=== PATIENT | male | born 1980 | race Caucasian/White ===

== ENCOUNTER 2016-09-02 08:52 | Outpatient (RCR) | payer MEDICAID ==
[2016-09-01 19:08] LABS: BASOPHILS % (AUTO) 0 % (0-10); EOSINOPHILS # (AUTO) 0.2 10^3/uL (0.0-0.3); EOSINOPHILS % (AUTO) 2 % (0-10); LYMPHOCYTES # (AUTO) 2.5 X 10^3 (1.0-4.0); LYMPHOCYTES % (AUTO) 27 % (12-44); MEAN CORPUSCULAR HEMOGLOBIN 31 PG (25-34); MEAN CORPUSCULAR HGB CONC 34 G/DL (32-36); MEAN CORPUSCULAR VOLUME 90 FL (80-99); MEAN PLATELET VOLUME 10.1 FL (7.4-10.4); MONOCYTES # (AUTO) 1.1 X 10^3 (0.0-1.0); MONOCYTES % (AUTO) 12 % (0-12); NEUTROPHILS # (AUTO) 5.4 X 10^3 (1.8-7.8); NEUTROPHILS % (AUTO) 59 % (42-75); PLATELET COUNT 270 10^3/uL (130-400); RED BLOOD COUNT 5.07 10^6/uL (4.35-5.85); RED CELL DISTRIBUTION WIDTH 13.1 % (10.0-14.5); WHITE BLOOD COUNT 9.2 10^3/uL (4.3-11.0)
[2016-09-01 19:16] LABS: ALANINE AMINOTRANSFERASE 39 U/L (0-55); ALBUMIN 4.5 GM/DL (3.2-4.5); ANION GAP 12 MMOL/L (5-14); ASPARTATE AMINO TRANSFERASE 25 U/L (5-34); BILIRUBIN,TOTAL 0.3 MG/DL (0.1-1.0); BLOOD UREA NITROGEN 19 MG/DL (7-18); BUN/CREATININE RATIO 18; CALCIUM 9.7 MG/DL (8.5-10.1); CARBON DIOXIDE 23 MMOL/L (21-32); CHLORIDE 105 MMOL/L (98-107); CREATININE SERUM 1.08 MG/DL (0.60-1.30); GFR ESTIMATED > 60; GLUCOSE 107 MG/DL (70-105); POTASSIUM 3.7 MMOL/L (3.6-5.0); SODIUM 140 MMOL/L (135-145); TOTAL PROTEIN 7.8 GM/DL (6.4-8.2); hs C REACTIVE PROTEIN 0.26 MG/DL (0.00-0.50)
[~2016-09-02 08:52] MED LIST: ALPR1T PO; ALPR1TAB7 PO; AMOX500C2 PO; CIPR-225 PO; CIPR500T78 PO; CYCL10TA9 PO; FLT05NA16 NSEACH; FLUT10SP; HYDR-1231 PO; HYDR-3456 PO; HYDR1TAB PO; HYDR1TAB8 PO; IBUP800T26 PO; METH4TAB PO; METR500T PO; NAPR550T PO; NF-ESOM40C; ONDN4T PO; OXYC-12 PO; PRD10T PO; PRD20T PO; TRAM50TA2; TRAM50TA2 PO; [UNRECOGNIZED DRUG - OTHER]
[2016-09-02] MEDS ORDERED: CIPR-225 PO (11:10)
[2016-09-02] MEDS ORDERED: METR500T PO (11:10)
[2016-09-02] MEDS ORDERED: LACT1CAP8 PO (11:10)
[2016-09-02] MEDS ORDERED: ONDA4TAB8 PO (11:10)
[2016-09-02] MEDS ORDERED: PRED5TAB PO (11:10)
== END 2016-11-13 | disposition home or self-care (01) ==
LOC: LAB 08:52
PROVIDERS: ATTEND Nurse Practitioner Adult Health
DX: K50.90 Crohn's disease, unspecified, without complications (principal)
CPT/HCPCS: 36415; 80053; 85025; 86141; 87324; 87449

== ENCOUNTER 2016-09-02 08:55 | Emergency (ER) | payer MEDICAID ==
[~2016-09-02] VITALS: Ht 167.6 cm; Wt 80.7 kg
[2016-09-02] MEDS: NS IV 1000 ML 1,000 ML IV ONE (10:02)
[2016-09-02 10:12] LABS: BASOPHILS % (AUTO) 1 % (0-10); EOSINOPHILS # (AUTO) 0.2 10^3/uL (0.0-0.3); EOSINOPHILS % (AUTO) 2 % (0-10); LYMPHOCYTES # (AUTO) 1.7 X 10^3 (1.0-4.0); LYMPHOCYTES % (AUTO) 20 % (12-44); MEAN CORPUSCULAR HEMOGLOBIN 31 PG (25-34); MEAN CORPUSCULAR HGB CONC 34 G/DL (32-36); MEAN CORPUSCULAR VOLUME 91 FL (80-99); MEAN PLATELET VOLUME 9.6 FL (7.4-10.4); MONOCYTES % (AUTO) 11 % (0-12); NEUTROPHILS # (AUTO) 5.6 X 10^3 (1.8-7.8); NEUTROPHILS % (AUTO) 66 % (42-75); PLATELET COUNT 247 10^3/uL (130-400); RED BLOOD COUNT 4.93 10^6/uL (4.35-5.85); RED CELL DISTRIBUTION WIDTH 13.1 % (10.0-14.5); WHITE BLOOD COUNT 8.5 10^3/uL (4.3-11.0)
[2016-09-02 10:22] LABS: INR 0.9 (0.8-1.4)
[2016-09-02] MEDS: CATHETER FLUSH 10 ML SYR IV PRN (10:22)
[2016-09-02] MEDS: IOHEXOL 350 MG/ML 100 ML (OMNIPAQUE 350) VIAL IV ONE (10:22)
[2016-09-02] MEDS: NS 100 ML (IVPB) BAG IV ONE (10:22)
[2016-09-02 10:34] LABS: ALANINE AMINOTRANSFERASE 38 U/L (0-55); ALBUMIN 4.1 GM/DL (3.2-4.5); ANION GAP 6 MMOL/L (5-14); ASPARTATE AMINO TRANSFERASE 26 U/L (5-34); BILIRUBIN,TOTAL 0.5 MG/DL (0.1-1.0); BLOOD UREA NITROGEN 16 MG/DL (7-18); BUN/CREATININE RATIO 17; CALCIUM 9.4 MG/DL (8.5-10.1); CARBON DIOXIDE 26 MMOL/L (21-32); CHLORIDE 107 MMOL/L (98-107); CREATININE SERUM 0.93 MG/DL (0.60-1.30); GFR ESTIMATED > 60; GLUCOSE 97 MG/DL (70-105); MAGNESIUM 1.8 MG/DL (1.8-2.4); POTASSIUM 4.1 MMOL/L (3.6-5.0); SODIUM 139 MMOL/L (135-145); TOTAL PROTEIN 7.1 GM/DL (6.4-8.2)
--- NOTE | 2016-09-02 10:51 | Diagnostic Imaging Report ---
PROCEDURE: CT abdomen and pelvis with contrast. TECHNIQUE: Multiple contiguous axial images were obtained through the abdomen and pelvis after administration of intravenous contrast. INDICATION: Crohn disease, blood in stool. Study compared 11/11/2015. FINDINGS: There is a roughly 20 cm-length segment of circumferential thickening and congestion of the subtending vasa recta associated with the ascending and proximal transverse colon consistent with segmental colitis. No pneumatosis, no obstruction, and no free air. The appendix and cecum appeared normal. There has been resolution of previous active inflammatory changes at the terminal and distal ileum present on prior. There is no abscess or findings of a fistula. There is no perforation or obstruction. Nonobstructing stone, lower pole calyx, right kidney measures 5.5 mm. There is a probable 2 to 3-mm stone in a left lower pole calyx. No hydronephrosis. The lung bases unremarkable. Liver, gallbladder, bile ducts, spleen, adrenals, pancreas unremarkable. There is no ascites. Prostate, seminal vesicles, and urinary bladder unremarkable. IMPRESSION: 1. Proximal colitis without obstruction or perforation. 2. Improvement if not resolution of previous terminal and distal ileitis. No convincing acute small bowel pathology. 3. No findings of fistula, obstruction, abscess, or perforation. 4. Nonobstructing nephrolithiasis. Dictated by: Dictated on workstation # [id number]
[2016-09-02 11:09] LABS: BILIRUBIN,URINE NEGATIVE (NEGATIVE); KETONES,URINE NEGATIVE (NEGATIVE); LEUKOCYTE ESTERASE ,URINE NEGATIVE (NEGATIVE); NITRITE,URINE NEGATIVE (NEGATIVE); PH,URINE 6 (5-9); PROTEIN,URINE NEGATIVE (NEGATIVE); UROBILINOGEN,URINE NORMAL (NORMAL)
[2016-09-02] MEDS ORDERED: ONDA4TAB8 PO (11:10)
[2016-09-02] MEDS ORDERED: CIPR-225 PO (11:10)
[2016-09-02] MEDS ORDERED: LACT1CAP8 PO (11:10)
[2016-09-02] MEDS ORDERED: METR500T PO (11:10)
[2016-09-02] MEDS ORDERED: PRED5TAB PO (11:10)
--- NOTE | 2016-09-02 11:11 | ED GI ---
General Chief Complaint: Abdominal/GI Problems Stated Complaint: BLOOD IN STOOL Nursing Triage Note: AMB TO ED WITH PMH OF CROHNS. YESTERDAY NOTICED BLOOD IN STOOL CALLED HIS DR IN . DR ORDERED BLOOD WORK. CALLED TODAY LAB [place] WAS TOLD TO COME TO ED FOR CT SCAN. Sepsis Screen: No Definite Risk Source of Information: Patient History of Present Illness Time Seen By Provider: 09:06 Initial Comments PT ARRIVES VIA POV PT STATES HE HAS CROHN'S DISEASE STATES LAST PM, HE NOTICED "A LITTLE BIT OF BLOOD" ONE TIME --NO RECTAL PAIN HAD BM TODAY WITHOUT BLOOD NO DIARRHEA NO ABDOMINAL PAIN + NAUSEA X 1 WEEK, NO VOMITING NO FEVER NO URINARY SYMPTOMS, BUT STATES HE HAS BEEN WORKING IN THE HEAT ALL WEEK, AND DOES NOT KNOW IF HE HAS BEEN URINATING A NORMAL AMOUNT. HAS BEEN DRINKING LOTS OF FLUIDS ALL WEEK PT STATES HE HAD LAB DONE YESTERDAY--ORDERED OUTPATIENT BY GI IN , AND WAS SUPPOSED TO SUBMIT A STOOL SAMPLE WELL, BUT DID NOT DO THAT PT STATES HE CALLED GI TODAY AND WAS TOLD LAB WAS ALL NORMAL, AND WAS TOLD TO COME TO ER "TO GET A CT SCAN" ALL 5 KIDS WITH GI ILLNESS OVER THE LAST WEEK A COUPLE OF MONTHS AGO, TOOK 8 WEEKS OF PREDNISONE FOR A CROHN'S FLARE, FINISHED OVER A MONTH AGO HAS APPOINTMENT WITH GI . 09/09/16--DR. OWUSU PCP: NONE--USED TO SEE DR. HATHAWAY UNTIL HIS RESIDENTIAL Allergies and Home Medications Allergies Coded Allergies: propoxyphene napsylate (Unverified Allergy, Severe, SEIZURES, 11/14/13) Home Medications Alprazolam 1 Mg Tablet, 1 TAB PO PRN, #120 (Reported) Ciprofloxacin HCl 500 Mg Tablet, 500 MG PO BID, #20 Prescribed by: SUNNI GONZALEZ on 08/22/15 1651 Ciprofloxacin HCl 500 Mg Tablet, 500 MG PO BID, #20 Prescribed by: ANGELA NGUYỄN on 09/02/16 1110 Hydrocodone/Ibuprofen 1 Each Tablet, 1 EACH PO PRN, (Reported) Lactobacillus Acidophilus 1 Each Capsule, 2 EACH PO QID, #80 Prescribed by: ANGELA NGUYỄN on 09/02/16 1110 Metronidazole 500 Mg Tablet, 500 MG PO BID, #20 Prescribed by: SUNNI GONZALEZ on 08/22/15 1651 Metronidazole 500 Mg Tablet, 500 MG PO QID, #40 Prescribed by: ANGELA NGUYỄN on 09/02/16 1110 Ondansetron 4 Mg Tab.rapdis, 4 MG PO Q4H, #10 Prescribed by: ANGELA NGUYỄN on 09/02/16 1110 Ondansetron HCl 4 Mg Tab, 4 MG PO Q4H PRN for NAUSEA/VOMITING, #10 Prescribed by: SUNNI GONZALEZ on 08/22/15 1651 Prednisone 20 Mg Tab, 40 MG PO BID, #10 Prescribed by: SUNNI GONZALEZ on 08/22/15 1651 Prednisone 5 Mg Tablet, 5 MG PO UD, #78 12 PILLS DAY 1, THEN DECREASE BY 1 PILL A DAY UNTIL GONE Prescribed by: ANGELA NGUYỄN on 09/02/16 1110 Review of Systems Constitutional: no symptoms reported EENTM: No Symptoms Reported Respiratory: No Symptoms Reported Cardiovascular: No Symptoms Reported Gastrointestinal: See HPI, Denies Abdominal Pain, Denies Constipated, Denies Diarrhea, Nausea, Denies Poor Appetite, Denies Poor Fluid Intake, Rectal Bleeding, Denies Vomiting Genitourinary: No Symptoms Reported Musculoskeletal: no symptoms reported Skin: no symptoms reported Psychiatric/Neurological: No Symptoms Reported Endocrine: No Symptoms Reported Past Irofqwf-Venxnb-Yxhzqf Hx Patient Social History Alcohol Use: Past History (HISTORY OF ABUSE, DENIES RECENT USE, PER PT ON ) Recreational Drug Use: Yes (HX OF DRUG USE, WILL NOT STATE WHAT KINDS) Smoking Status: Current Everyday Smoker (2 PPD) Type Used: Cigarettes Recent Foreign Travel: No Contact w/Someone Who Travel: No Recent Infectious Disease Expo: No Recent Hopitalizations: No Seasonal Allergies Seasonal Allergies: No Surgeries HX Surgeries: Yes (COLONOSCOPIES) Surgeries: Vasectomy Respiratory Hx Respiratory Disorders: No Cardiovascular Hx Cardiac Disorders: No Neurological Hx Neurological Disorders: No Reproductive System Hx Reproductive Disorders: No Genitourinary Hx Genitourinary Disorders: Yes Genitourinary Disorders: Kidney Stones Gastrointestinal Hx Gastrointestinal Disorders: Yes Gastrointestinal Disorders: Crohns Disease Musculoskeletal Hx Musculoskeletal Disorders: Yes (CHRONIC NECK AND BACK PAIN ) Musculoskeletal Disorders: Chronic Back Pain Endocrine Hx Endocrine Disorders: No HEENT HX ENT Disorders: No Cancer Hx Cancer: No Psychosocial Hx Psychiatric Problems: No Integumentary HX Skin/Integumentary Disorder: No Blood Transfusions Hx Blood Disorders: No Physical Exam Vital Signs VS - Last 72 Hours, by Label 09/02/16 09/02/16 08:59 11:36 Temp 97.2 Pulse 89 69 Resp 18 18 B/P (MAP) 121/78 Pulse Ox 98 98 O2 Delivery Room Air Room Air Capillary Refill : Less Than 3 Seconds General Appearance: WD/WN, no apparent distress, other (CONSTANT MOVEMENTS OF ENTIRE BODY AND LOWER JAW) HEENT: PERRL/EOMI Neck: normal inspection Respiratory: normal breath sounds, no respiratory distress, no accessory muscle use Cardiovascular: regular rate, rhythm, no murmur Gastrointestinal: normal bowel sounds, non tender, soft, no organomegaly, no pulsatile mass Extremities: normal inspection, no pedal edema, no calf tenderness, normal capillary refill Back: no CVA tenderness Neurologic/Psychiatric: acquisitions editor II-XII nml as tested, no motor/sensory deficits, alert, normal mood/affect, oriented x 3 Skin: normal color, warm/dry, tattoos/piercings (EXTENSIVE TATTOOS) Progress/Results/Core Measures Results/Orders Lab Results Laboratory Tests Test 09/02/16 10:03 09/02/16 11:00 Range/Units White Blood Count 8.5 4.3-11.0 10^3/uL Red Blood Count 4.93 4.35-5.85 10^6/uL Hemoglobin 15.3 13.3-17.7 G/DL Hematocrit 45 40-54 % Mean Corpuscular Volume 91 80-99 FL Mean Corpuscular Hemoglobin 31 25-34 PG Mean Corpuscular Hemoglobin Concent 34 32-36 G/DL Red Cell Distribution Width 13.1 10.0-14.5 % Platelet Count 247 130-400 10^3/uL Mean Platelet Volume 9.6 7.4-10.4 FL Neutrophils (%) (Auto) 66 42-75 % Lymphocytes (%) (Auto) 20 12-44 % Monocytes (%) (Auto) 11 0-12 % Eosinophils (%) (Auto) 2 0-10 % Basophils (%) (Auto) 1 0-10 % Neutrophils # (Auto) 5.6 1.8-7.8 X 10^3 Lymphocytes # (Auto) 1.7 1.0-4.0 X 10^3 Monocytes # (Auto) 1.0 0.0-1.0 X 10^3 Eosinophils # (Auto) 0.2 0.0-0.3 10^3/uL Basophils # (Auto) 0.0 0.0-0.1 10^3/uL Prothrombin Time 12.0 L 12.2-14.7 SEC INR Comment 0.9 0.8-1.4 Activated Partial Thromboplast Time 27 24-35 SEC Sodium Level 139 135-145 MMOL/L Potassium Level 4.1 3.6-5.0 MMOL/L Chloride Level 107 98-107 MMOL/L Carbon Dioxide Level 26 21-32 MMOL/L Anion Gap 6 5-14 MMOL/L Blood Urea Nitrogen 16 7-18 MG/DL Creatinine 0.93 0.60-1.30 MG/DL Estimat Glomerular Filtration Rate > 60 BUN/Creatinine Ratio 17 Glucose Level 97 70-105 MG/DL Calcium Level 9.4 8.5-10.1 MG/DL Magnesium Level 1.8 1.8-2.4 MG/DL Total Bilirubin 0.5 0.1-1.0 MG/DL Aspartate Amino Transf (AST/SGOT) 26 5-34 U/L Alanine Aminotransferase (ALT/SGPT) 38 0-55 U/L Alkaline Phosphatase 145 H 40-136 U/L Total Protein 7.1 6.4-8.2 GM/DL Albumin 4.1 3.2-4.5 GM/DL Urine Color YELLOW Urine Clarity SLIGHTLY CLOUDY Urine pH 6 5-9 Urine Specific [place] 1.015 L 1.016-1.022 Urine Protein NEGATIVE NEGATIVE Urine Glucose (UA) NEGATIVE NEGATIVE Urine Ketones NEGATIVE NEGATIVE Urine Nitrite NEGATIVE NEGATIVE Urine Bilirubin NEGATIVE NEGATIVE Urine Urobilinogen NORMAL NORMAL MG/DL Urine Leukocyte Esterase NEGATIVE NEGATIVE Urine RBC (Auto) NEGATIVE NEGATIVE Urine RBC NONE /HPF Urine WBC 0-2 /HPF Urine Squamous Epithelial Cells RARE /HPF Urine Crystals NONE /LPF Urine Bacteria NEGATIVE /HPF Urine Casts NONE /LPF Urine Mucus SMALL H /LPF Urine Culture Indicated NO Urine Opiates Screen NEGATIVE NEGATIVE Urine Oxycodone Screen NEGATIVE NEGATIVE Urine Methadone Screen NEGATIVE NEGATIVE Urine Propoxyphene Screen NEGATIVE NEGATIVE Urine Barbiturates Screen NEGATIVE NEGATIVE Ur Tricyclic Antidepressants Screen NEGATIVE NEGATIVE Urine Phencyclidine Screen NEGATIVE NEGATIVE Urine Amphetamines Screen NEGATIVE NEGATIVE Urine Methamphetamines Screen NEGATIVE NEGATIVE Urine Benzodiazepines Screen NEGATIVE NEGATIVE Urine Cocaine Screen NEGATIVE NEGATIVE Urine Cannabinoids Screen POSITIVE H NEGATIVE My Orders Orders - ANGELA NGUYỄN DO Saline Lock/Iv-Start (09/02/16 09:09) Ct Abdomen/Pelvis W (09/02/16 09:09) Cbc With Automated Diff (09/02/16 09:09) Comprehensive Metabolic Panel (09/02/16 09:09) Drug Screen Stat (Urine) (09/02/16 09:09) Magnesium (09/02/16 09:09) Protime With Inr (09/02/16 09:09) Partial Thromboplastin Time (09/02/16 09:09) Ua Culture If Indicated (09/02/16 09:09) Saline Lock/Iv-Start (09/02/16 09:09) Ns Iv 1000 Ml (Sodium Chloride 0.9%) (09/02/16 09:09) Iohexol Injection (Omnipaque 350 Mg/Ml 1 (09/02/16 09:30) Sodium Chloride Flush (Catheter Flush Sy (09/02/16 09:30) Ns (Ivpb) (Sodium Chloride 0.9% Ivpb Bag (09/02/16 09:30) Methylprednisolone Sod Succ (Solu-Medrol (09/02/16 11:15) Medications Given in ED Vital Signs/I&O Vital Sign - Last 12Hours 09/02/16 09/02/16 08:59 11:36 Temp 97.2 Pulse 89 69 Resp 18 18 B/P (MAP) 121/78 Pulse Ox 98 98 O2 Delivery Room Air Room Air Blood Pressure Mean: 92 Progress Note : Progress Note UNEVENTFUL ER STAY NO SYMPTOMS DURING ER STAY Diagnostic Imaging Comments CT ABDOMEN/PELVIS-- 20 CM SEGMENT OF ASCENDING AND TRANSVERSE COLON CIRCUMFERENTIAL INFLAMMATION/COLITIS--PER RADIOLOGIST REPORT @ 1055 Reviewed: Reviewed by Me Departure Impression Impression: Primary Impression: Acute hemorrhagic colitis Additional Impression: Crohn's disease of colon with rectal bleeding Disposition: HOME, SELF-CARE Condition: Stable Departure-Patient Inst. Referrals: NO,LOCAL PHYSICIAN (PCP/Family) Primary Care Physician Patient Instructions: Crohn's Disease (DC), Microscopic Colitis Add. Discharge Instructions: CLEAR LIQUIDS--WATER, BROTH, JELLO, GATORADE NO FOOD UNTIL YOU ARE CLEARED BY YOUR DR CONTINUE YOUR REGULAR MEDICATIONS PRESCRIBED KEEP YOUR APPOINTMENT WITH YOUR CIRCUIT BREAKER MECHANIC NEXT WEEK ESTABLISH WITH LOCAL PRIMARY CARE DR SOON POSSIBLE--LIST PROVIDED RETURN TO ER IF SYMPTOMS WORSEN All discharge instructions reviewed with patient and/or family. Voiced understanding. Scripts Ondansetron (Zofran Odt) 4 Mg Tab.rapdis 4 MG PO Q4H for Nausea/Vomiting, #10 TAB Prov: ANGELA NGUYỄN DO 09/02/16 Prednisone (Prednisone) 5 Mg Tablet 5 MG PO UD, #78 TAB 12 PILLS DAY 1, THEN DECREASE BY 1 PILL A DAY UNTIL GONE Prov: ANGELA NGUYỄN DO 09/02/16 Metronidazole (Flagyl) 500 Mg Tablet 500 MG PO QID for FOR INFECTION, #40 TAB Prov: ANGELA NGUYỄN DO 09/02/16 Ciprofloxacin HCl (Cipro) 500 Mg Tablet 500 MG PO BID, #20 TAB Prov: ANGELA NGUYỄN DO 09/02/16 Lactobacillus Acidophilus (Acidophilus) 1 Each Capsule 2 EACH PO QID, #80 CAP Prov: ANGELA NGUYỄN DO 09/02/16 ANGELA NGUYỄN DO Sep 02, 2016 11:10
[2016-09-02 11:18] LABS: SQUAMOUS EPITHELIAL CELL,UR RARE /HPF; WBC,URINE 0-2 /HPF
[2016-09-02] MEDS: methylPREDNISolone 125 MG (Solu-MEDROL) VIAL IVP ONE (11:34)
[2016-09-02 11:36] VITALS: BP 124/73
== END 2016-09-02 11:36 | disposition home or self-care (01) ==
LOC: EDUNIT# 08:55 → ER 08:58
DX: K50.111 Crohn's disease of large intestine with rectal bleeding (principal); G89.29 Other chronic pain; M54.9 Dorsalgia, unspecified; F17.210 Nicotine dependence, cigarettes, uncomplicated; Z98.52 Vasectomy status
CPT/HCPCS: 36415; 74177; 80053; 80306; 81000; 83735; 85025; 85610; 85730; 99282

== ENCOUNTER 2017-02-09 09:38 | Emergency (ER) | payer MEDICAID ==
[~2017-02-09] VITALS: Ht 170.2 cm; Wt 88.5 kg
[~2017-02-09 09:38] MED LIST changes: +LACT1CAP8 PO; +ONDA4TAB8 PO; +PRED5TAB PO
--- OUTSIDE RECORDS SUMMARY | 2017-02-09 09:45 | XMS REPORT | Continuity of Care Document ---
Author Author [employer] Organization [place] Address Unknown Phone Unavailable Care Team Providers Care Membership Assistant Name Role Phone [employer] Unavailable Unavailable Problems Problem Status Onset Date Classification Date Reported Comments Source Crohn's disease (disorder) 11/19/2016 Diagnosis 2016 [facility], [facility], [facility] Seborrhea (disorder) 2016 Diagnosis 11/23/2016 [facility] Tobacco user (finding) 11/19 Diagnosis 11/23/2016 [facility] Kidney stone (disorder) Diagnosis 09/12/2016 [facility] Gastroesophageal reflux disease (disorder) 05/17/2016 Diagnosis 05/21/2016 [facility] Chronic back pain (disorder) 04/13/2016 Diagnosis 2016 [facility] Crohn's disease (disorder) 01/14/2016 Diagnosis 2015 [facility], [facility] Low back pain (disorder) Diagnosis 11/02/2015 [facility] Polyp of colon (disorder) Diagnosis 10/04/2015 [facility] Adenomatous polyp of colon (disorder) 09/15/2015 Diagnosis 09/19/2015 [facility] Regional enteritis of large intestine 10/23/2014 Diagnosis 10/27/2014 [facility] Other dyschromia 10/23/2014 Diagnosis 10/27/2014 [facility] Diarrhea 10/23/2014 Diagnosis 10/27/2014 [facility] Regional enteritis of unspecified site 10/04/2014 Diagnosis 10/08/2014 [facility], [facility] Abdominal pain, unspecified site 09/24/2014 Diagnosis [facility] No data available for this section Problem 07/12/2016 [facility], [facility] Tobacco user (finding) Active Problem 11/23/2016 Updated by Discern Expert based on Social History Documentation Added by Discern Expert based on Social History Documentation [facility] Medications Medication Details Route Status Patient Instructions Ordering Provider Order Date Source No Known Medications No known medications Active [facility] Allergies, Adverse Reactions, Alerts Substance Category Reaction Severity Reaction type Status Date Reported Comments Source Acetaminophen / Propoxyphene Assertion Seizure Drug allergy [facility], [facility], [facility] Immunizations Immunization Date Given Site Status Last Updated Comments Source No data available for this section No data available for this section [facility], [facility], [facility]. Results Vital Signs Encounters Location Location Details Encounter Type Encounter Number Reason For Visit Attending Provider ADM Date DC Date Status Source [facility] [id number] [facility] 09/24/2014 09/25/2014 [facility] CD:[id number] Outpatient [id number] [facility] 10/04/2014 10/04/2014 [facility] CD:[id number] Outpatient [id number] [facility] 10/23/201410/2014 Active [facility] [id number] [facility] 10/23/20142014 [facility] CD:[id number] Outpatient [id number] [facility] 10/28/2014 Active [facility] CD:[id number] Outpatient [id number] [facility] 11/08/2014 Active [facility] CD:[id number] Outpatient [id number] [facility] 11/11/2014 Active [facility], [facility] CD:[id number] Outpatient [id number] [facility]201401[id number] Goss 11/26/2014 11/26/2014 Active [facility], [facility] Cancel/No Show [id number] [facility] 12/10/2014 12/10/2014 [facility] CD:[id number] Clinic ( Outpatient) [id number] [facility] 12/12/2014 Active [facility] CD:[id number] Clinic ( Outpatient) [id number] [facility] 12/25/2014 Active [facility], [facility] Preadmit [id number] Rolando Ringmiky 01/16/2015 04/17/2015 [facility], [facility] [id number] [facility] 09/15/20152015 [facility] CD:[id number] [id number]30[facility]2015 Active [facility], [facility] [id number] [facility]/30/201502/2015 [facility] [id number] [facility] 09/30/2015 [facility] Cancel/No Show [id number] [facility] 10/14/2015 10/10/2015 [facility] CD:[id number] [id number] [facility] 10/29/2015 10/29/2015 Active [facility], [facility] [id number] [facility] 10/29/2015 [facility] CD:[id number] Clinic ( Outpatient) [id number] [facility] 01/02/2016 Active [facility] CD:[id number] [facility] [id number] [facility] 01/14/2016 01/14/2016 Active [facility], [facility] [id number] [facility] 01/14/201602/2015 [facility] CD:[id number] Clinic ( Outpatient) [id number] Richard Chen 03/19/2016 Active [facility] CD:[id number] Clinic ( Outpatient) [id number] Richard Chen 04/13/2016 04/13/2016 Active [facility] [id number] [facility] 05/17/2016 05/18/2016 [facility] Outpatient [id number] [facility] 05/17/2016 05/18/2016 [facility], [facility] CD:[id number] Outpatient [id number] [facility] 05/27/2016 05/27/2016 Active [facility], [facility] [id number] Richard Chen 07/13/2016 07/14/2016 [facility] CD:[id number] Clinic ( Outpatient) [id number] [facility] 07/14/2016 Active [facility] [id number] [facility] 08/27/2016 07/08/2016 [facility] [id number] [facility] 09/08/2016 09/09/2016 [facility] Outpatient [id number] [facility] 09/08/2016 09/09/2016 [facility], [facility] [id number] Richard Chen 11/19/2016 11/20/2016 [facility] Cancel/No Show [id number] [facility] 01/12/2017 01/12/2017 [facility] Procedures Procedure Code Date Perfomer Comments Source Colonoscopy, flexible; diagnostic, including collection of specimen(s) by brushing or washing, when performed (separate procedure) 05/27/2016 [facility] Esophagogastroduodenoscopy, flexible, transoral; diagnostic, including collection of specimen(s) by brushing or washing, when performed (separate procedure) 05/27/2016 [facility] Colonoscopy, flexible; diagnostic, including collection of specimen(s) by brushing or washing, when performed (separate procedure) [id number] 09/30/2015 [facility] Colonoscopy, flexible; diagnostic, including collection of specimen(s) by brushing or washing, when performed (separate procedure) [id number] 10/04/2014 [facility] Esophagogastroduodenoscopy, flexible, transoral; diagnostic, including collection of specimen(s) by brushing or washing, when performed (separate procedure) [id number] 10/04/2014 [facility]. No data available for this section [facility] EGD/Colonoscopy<sup>1</sup> As a kid [facility] Colonoscopy, flexible; diagnostic, including collection of specimen(s) by brushing or washing, when performed (separate procedure) [id number] [facility] Plan of Care Social History Assessment and Plan Family History Value Date Source Advance Directives Order Name Results Value Date Source
--- OUTSIDE RECORDS SUMMARY | 2017-02-09 09:51 | XMS REPORT ---
Author Author [facility] Organization [facility] Address Unknown Phone Unavailable Care Team Providers Care Regional Clinical Research Associate Name Role Phone No Family Physician, . PCP Unavailable Encounter [facility]NBR [id number] Date(s): 09/08/16 - 09/08/16 [facility] [address] [place] [address] Attending Physician: Yue Martin MD Admitting Physician: Yue Martin MD Referring Physician: No Family Physician, . Vital Signs No data available for this section Problem List No data available for this section Allergies, Adverse Reactions, Alerts Substance Reaction Severity Status Darvocet A500 Seizure Active Medications No data available for this section Results No data available for this section Immunizations No data available for this section Procedures No data available for this section Social History No data available for this section Assessment and Plan No data available for this section
--- OUTSIDE RECORDS SUMMARY | 2017-02-09 09:52 | XMS REPORT ---
Author Author [facility] Organization [facility] Address Unknown Phone Unavailable Care Team Providers Care [place] Man Name Role Phone Richard Chen PCP Encounter [id number] Date(s): 11/19/16 - 11/19/[address] [address]- Attending Physician: Richard Chen MD Vital Signs No data available for this section Problem List Condition Effective Dates Status Health Status Informant Tobacco Active patient user(Confirmed)1, 2 1Updated by Discern Expert based on Social History Documentation 2Added by Discern Expert based on Social History Documentation Diagnosis Diagnosis Type Effective Dates Health Status Clinical Service Informant Crohn's disease Discharge 11/19/16 Diagnosis Seborrhea Discharge 11/19/16 Diagnosis Tobacco user Discharge 11/19/16 Diagnosis Allergies, Adverse Reactions, Alerts Substance Reaction Severity Status Darvocet A500 Seizure Active Medications No Known Medications Results No data available for this section Immunizations No data available for this section Procedures No data available for this section Social History No data available for this section Assessment and Plan No data available for this section
--- OUTSIDE RECORDS SUMMARY | 2017-02-09 09:52 | XMS REPORT ---
Author Author [facility] Organization [facility] Address Unknown Phone Unavailable Care Team Providers Care Paraprofessional Education Assistant Name Role Phone No Family Physician, . PCP Unavailable Encounter [id number] Date(s): 09/08/16 - 09/08/16 [facility] [address] [place] [id number] Attending Physician: Yue Martin MD Vital Signs No data available for this section Problem List Diagnosis Diagnosis Type Effective Dates Health Status Clinical Service Informant Crohn's disease Discharge 09/08/16 Diagnosis Kidney stone Discharge 09/08/16 Diagnosis Allergies, Adverse Reactions, Alerts Substance Reaction Severity Status Darvocet A500 Seizure Active Medications No Known Medications Results No data available for this section Immunizations No data available for this section Procedures No data available for this section Social History No data available for this section Assessment and Plan No data available for this section
--- OUTSIDE RECORDS SUMMARY | 2017-02-09 09:53 | XMS REPORT ---
Author Author [facility] Organization [facility] Address Unknown Phone Unavailable Care Team Providers Care Forgeman Helper Name Role Phone Richard Chen PCP No Family Physician, . PCP Unavailable UNKNOWN, DOCTOR PCP Unavailable No Family Physician, . PCP Unavailable UNKNOWN, DOCTOR PCP Unavailable No Family Physician, . PCP Unavailable Non-Staff, Physician PCP Unavailable Encounter [id number] Date(s): 01/12/17 - 01/12/17 [facility] [id number] [place] [phone] Attending Physician: Yue Martin MD Vital Signs No data available for this section Problem List Condition Effective Dates Status Health Status Informant Tobacco Active patient user(Confirmed)1, 2 1Updated by Discern Expert based on Social History Documentation 2Added by Discern Expert based on Social History Documentation Allergies, Adverse Reactions, Alerts Substance Reaction Severity [...]
--- OUTSIDE RECORDS SUMMARY | 2017-02-09 09:54 | XMS REPORT | Continuity of Care Document ---
Author Author [facility] Organization [facility] Address Unknown Phone Unavailable Allergies Active Description Code Type Severity Reaction Onset Reported/Identified Relationship to Patient Clinical Status Yes Darvocet-N 100 Drug Allergy 08/25/2009 Yes Darvocet-N 100 Drug Allergy N /A N/A 08/25/2009 Yes propoxyphene napsylate [id number] Drug Allergy Severe SEIZURES 2010 Medications There is no data. Problems Date Dx Coded Attending Type Code Diagnosis Diagnosed By 11/10/2007 709.9 DERMATITIS OTHER SKIN DISORDERS 11/10/2007 ROBEL BOWLING APRN 709.9 DERMATITIS OTHER SKIN DISORDERS 11/10/2007 HALEY SYKES DO 709.9 DERMATITIS OTHER SKIN DISORDERS 11/10/2007 SHAKA MUNGUIA APRN 709.9 DERMATITIS OTHER SKIN DISORDERS 10/03/2008 V61.10 RL RELATION COUNS 10/03/2008 ROBEL BOWLING APRN V61.10 RL RELATION COUNS 10/03/2008 HALEY SYKES DO V61.10 RL RELATION COUNS 10/03/2008 SHAKA MUNGUIA APRN V61.10 RL RELATION COUNS 01/29/2009 Ot 592.0 CALCULUS OF KIDNEY 02/19/2009 461.9 SINUSITIS ACUTE 02/19/2009 ROBEL BOWLING APRN 461.9 SINUSITIS ACUTE 02/19/2009 HALEY SYKES DO 461.9 SINUSITIS ACUTE 02/19/2009 SHAKA MUNGUIA APRN 461.9 SINUSITIS ACUTE 03/13/2009 473.0 CHRONIC SINUSITIS, MAXILLARY 03/13/2009 555.9 REGIONAL ENTERITIS OF UNSPECIFIED SITE 03/13/2009 584.9 ACUTE KIDNEY FAILURE, UNSPECIFIED 03/13/2009 789.06 ABDOMINAL PAIN, EPIGASTRIC 03/13/2009 ROBEL BOWLING APRN 473.0 CHRONIC SINUSITIS, MAXILLARY 03/13/2009 ROBEL BOWLING APRN 555.9 REGIONAL ENTERITIS OF UNSPECIFIED SITE 03/13/2009 ROBEL BOWLING APRN 584.9 ACUTE KIDNEY FAILURE, UNSPECIFIED 03/13/2009 ROBEL BOWLING APRN 789.06 ABDOMINAL PAIN, EPIGASTRIC 03/13/2009 SYKES DO, HALEY K 473.0 CHRONIC SINUSITIS, MAXILLARY 03/13/2009 SYKES DO, HALEY K 555.9 REGIONAL ENTERITIS OF UNSPECIFIED SITE 03/13/2009 SYKES DO, HALEY K 584.9 ACUTE KIDNEY FAILURE, UNSPECIFIED 03/13/2009 SYKES DO, HALEY K 789.06 ABDOMINAL PAIN, EPIGASTRIC 03/13/2009 SHAKA MUNGUIA APRN S 473.0 CHRONIC SINUSITIS, MAXILLARY 03/13/2009 ADRIENNE MUNGUIA APRNA S 555.9 REGIONAL ENTERITIS OF UNSPECIFIED SITE 03/13/2009 SOHAM MUNGUIA APRNNDA S 584.9 ACUTE KIDNEY FAILURE, UNSPECIFIED 03/13/2009 ADRIENNE MUNGUIA APRNA S 789.06 ABDOMINAL PAIN, EPIGASTRIC 08/04/2009 Ot 592.0 08/04/2009 Ot V25.8 08/25/2009 789.00 ABDOMINAL PAIN, UNSPECIFIED SITE 08/25/2009 ROBEL BOWLING APRN 789.00 ABDOMINAL PAIN, UNSPECIFIED SITE 08/25/2009 HALEY SYKES DO K 789.00 ABDOMINAL PAIN, UNSPECIFIED SITE 08/25/2009 SHAKA MUNGUIA APRN S 789.00 ABDOMINAL PAIN, UNSPECIFIED SITE 10/08/2010 Ot 592.1 CALCULUS OF URETER 10/08/2010 Ot 789.09 ABDOMINAL PAIN, OTHER SPECIFIED SITE 10/13/2010 592.0 CALCULUS OF KIDNEY 10/13/2010 ROBEL BOWLING APRN 592.0 CALCULUS OF KIDNEY 10/13/2010 HALEY SYKES DO K 592.0 CALCULUS OF KIDNEY 10/13/2010 SHAKA MUNGUIA APRN S 592.0 CALCULUS OF KIDNEY 07/21/2011 Ot 555.9 REGIONAL ENTERITIS NOS 07/21/2011 Ot 789.00 ABDOMINAL PAIN, UNSPECIFIED SITE 08/31/2011 Ot 733.6 TIETZE'S DISEASE 08/31/2011 Ot 786.50 CHEST PAIN NOS 08/31/2011 Ot 786.52 PAINFUL RESPIRATION 10/22/2011 Ot 461.9 ACUTE SINUSITIS NOS 10/22/2011 Ot 478.19 OTHER DISEASE OF NASAL CAVITY AND SINUSE 11/15/2011 Ot 555.9 REGIONAL ENTERITIS NOS 11/15/2011 Ot 560.9 INTESTINAL OBSTRUCT NOS 11/15/2011 Ot 569.82 ULCERATION OF INTESTINE 03/03/2012 Ot 555.9 REGIONAL ENTERITIS NOS 03/03/2012 Ot V04.81 ND FOR PROPHYLACTIC VACCIN AND INOCULATI 03/03/2012 Ot V15.81 HX OF PAST NONCOMPLIANCE 05/23/2012 309.24 AD ADJ D/O W ANXIETY 05/23/2012 ROBEL BOWLING APRN 309.24 AD ADJ D/O W ANXIETY 05/23/2012 HALEY SYKES DO 309.24 AD ADJ D/O W ANXIETY 05/23/2012 SHAKA MUNGUIA APRN 309.24 AD ADJ D/O W ANXIETY 03/17/2013 ROBEL BOWLING APRN 466.0 BRONCHITIS, ACUTE 03/17/2013 HALEY SYKES DO 466.0 BRONCHITIS, ACUTE 03/17/2013 SHAKA MUNGUIA APRN 466.0 BRONCHITIS, ACUTE 04/23/2013 Ot 354.0 CARPAL TUNNEL SYNDROME 04/23/2013 Ot 723.1 CERVICALGIA 04/23/2013 Ot 724.8 OTHER BACK SYMPTOMS 04/23/2013 Ot 848.9 SPRAIN NOS 04/23/2013 Ot E000.8 OTHER EXTERNAL CAUSE STATUS 04/23/2013 Ot E928.9 ACCIDENT NOS 04/25/2013 Ot 787.91 DIARRHEA 04/25/2013 Ot 789.09 ABDOMINAL PAIN, OTHER SPECIFIED SITE 10/20/2013 Ot 305.1 TOBACCO USE DISORDER 10/20/2013 Ot 555.9 REGIONAL ENTERITIS NOS 10/20/2013 Ot V15.81 HX OF PAST NONCOMPLIANCE 02/19/2014 Ot 592.0 02/19/2014 Ot 592.0 02/19/2014 Ot 592.0 02/19/2014 Ot V72.83 02/19/2014 Ot V74.8 02/19/2014 Ot 592.0 02/19/2014 Ot 592.0 02/19/2014 Ot V25.8 02/19/2014 Ot 555.9 02/19/2014 Ot V72.84 02/19/2014 Ot 560.9 02/19/2014 WADE ANTON, STONE Simmons Ot 555.9 REGIONAL ENTERITIS NOS 02/19/2014 Ot 592.0 02/19/2014 Ot 592.0 02/19/2014 Ot 592.0 02/19/2014 Ot V72.83 02/19/2014 Ot V74.8 02/19/2014 Ot 592.0 02/19/2014 Ot 592.0 02/19/2014 Ot V25.8 02/19/2014 Ot 555.9 02/19/2014 Ot V72.84 02/19/2014 Ot 560.9 05/18/2014 SHAKA MUNGUIA APRN 599.70 HEMATURIA 05/30/2014 Ot 592.0 05/30/2014 Ot 592.0 05/30/2014 Ot 592.0 05/30/2014 Ot V72.83 05/30/2014 Ot V74.8 05/30/2014 Ot 592.0 05/30/2014 Ot 592.0 05/30/2014 Ot V25.8 05/30/2014 Ot 555.9 05/30/2014 Ot V72.84 05/30/2014 Ot 560.9 06/04/2014 SHAKA MUNGUIA Ot 569.9 06/04/2014 SHAKA MUNGUIA Ot 592.0 06/04/2014 SHAKA MUNGUIA Ot 789.00 06/04/2014 Ot 592.0 06/04/2014 Ot 592.0 06/04/2014 Ot 592.0 06/04/2014 Ot V72.83 06/04/2014 Ot V74.8 06/04/2014 Ot 592.0 06/04/2014 Ot 592.0 06/04/2014 Ot V25.8 06/04/2014 Ot 555.9 06/04/2014 Ot V72.84 06/04/2014 Ot 560.9 06/04/2014 SHAKA MUNGUIA Ot 569.9 06/04/2014 SHAKA MUNGUIA Ot 592.0 06/04/2014 SHAKA MUNGUIA Ot 789.00 06/19/2014 SHAKA MUNGUIA Ot 569.9 06/19/2014 SHAKA 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 SHIPPING SUPERVISOR Ot 592.0 06/19/2014 SHAKA MUGNUIA WAREHOUSE SHIPPING SUPERVISOR Ot 789.00 02/21/2015 Ot 555.9 02/21/2015 Ot V72.84 02/21/2015 Ot 560.9 02/21/2015 SHAKA 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 SHIPPING SUPERVISOR Ot 569.9 02/21/2015 SHAKA MUNGUIAP Ot 592.0 02/21/2015 SHAKA 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 SHIPPING SUPERVISOR Ot 789.00 03/07/2015 Ot 555.9 03/07/2015 Ot V72.84 03/07/2015 Ot 560.9 03/07/2015 SHAKA 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 SHIPPING SUPERVISOR Ot 569.9 03/07/2015 SHAKA MUNGUIAP Ot 592.0 03/07/2015 SHAKA MUNGUIAP Ot 789.00 03/07/2015 MAG ANTON, BRENTON J Ot M54.2 03/07/2015 MAG ANTON, BRENTON J Ot R51 03/12/2015 MAG ANTON, BRENTON J Ot M54.2 03/12/2015 MAG ANTON, BRENTON J Ot R51 03/18/2015 MAG ANTON, BRENTON J Ot M54.2 03/18/2015 MAG ANTON, BRENTON J Ot M54.5 03/21/2015 MAG ANTON, BRENTON Teresa Ot M54.2 CERVICALGIA 03/21/2015 MAG ANTON, BRENTON Teresa Ot M54.5 LOW BACK PAIN 04/01/2015 MAG ANTON, BRENTON J Ot M54.2 04/01/2015 MAG ANTON, BRENTON J Ot R51 07/03/2015 MAG ANTON, BRENTON J Ot M54.2 CERVICALGIA 07/03/2015 MAG ANTON, BRENTON J Ot R51 HEADACHE 08/22/2015 Ot 555.9 REGIONAL ENTERITIS NOS 08/22/2015 Ot V72.84 EXAM PRE- OPERATIVE NOS 08/22/2015 Ot 560.9 INTESTINAL OBSTRUCT NOS 08/22/2015 SHAKA 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 SHIPPING SUPERVISOR Ot 569.9 INTESTINAL DISORDER NOS 08/22/2015 SHAKA MUNGUIAP Ot 592.0 CALCULUS OF KIDNEY 08/22/2015 NILDA, SHAKA W[employer]HOUSE SHIPPING SUPERVISOR Ot 789.00 ABDOMINAL PAIN, UNSPECIFIED SITE 08/22/2015 MAG ANTON, BRENTON Teresa Ot M54.2 CERVICALGIA 08/22/2015 MAG ANTON, BRENTON Teresa Ot R51 HEADACHE 08/22/2015 Ot 555.9 REGIONAL ENTERITIS NOS 08/22/2015 Ot V72.84 EXAM PRE- OPERATIVE NOS 08/22/2015 Ot 560.9 INTESTINAL OBSTRUCT NOS 08/22/2015 NILDA SHAKA W[employer]HOUSE SHIPPING SUPERVISOR Ot 569.9 INTESTINAL DISORDER NOS 08/22/2015 SHAKA 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 SHIPPING SUPERVISOR Ot 592.0 CALCULUS OF KIDNEY 08/22/2015 NILDA SHAKA W[employer]HOUSE SHIPPING SUPERVISOR Ot 789.00 ABDOMINAL PAIN, UNSPECIFIED SITE 08/22/2015 MAG ANTON, BRENTON Teresa Ot M54.2 CERVICALGIA 08/22/2015 MAG ANTON, BRENTON Teresa Ot R51 HEADACHE 08/22/2015 BESSIE ANTON, SUNNI T Ot F17.210 NICOTINE DEPENDENCE, CIGARETTES, UNCOMPL 08/22/2015 BESSIE ANTON, SUNNI T Ot K50.90 CROHN'S DISEASE, UNSPECIFIED, WITHOUT CO 08/22/2015 SUNNI LA MD Ot R10.30 LOWER ABDOMINAL PAIN, UNSPECIFIED 08/22/2015 BESSIE ANTON, SUNNI Mike Ot R11.0 NAUSEA 08/22/2015 BESSIE ANTON, SUNNI T Ot R19.7 DIARRHEA, UNSPECIFIED 08/28/2015 BESSIE ANTON, SUNNI T Ot F17.210 NICOTINE DEPENDENCE, CIGARETTES, UNCOMPL 08/28/2015 BESSIE ANTON, SUNNI T Ot K50.90 CROHN'S DISEASE, UNSPECIFIED, WITHOUT CO 08/28/2015 BESSIE ANTON, SUNNI T Ot R10.30 LOWER ABDOMINAL PAIN, UNSPECIFIED 08/28/2015 SUNNI LA MD Ot R11.0 NAUSEA 08/28/2015 SUNNI LA MD T Ot R19.7 DIARRHEA, UNSPECIFIED 11/11/2015 VIVIANA GLOVER CREATIVE RECRUITER Ot F17.210 NICOTINE DEPENDENCE, CIGARETTES, UNCOMPL 11/11/2015 VIVIANA GLOVER CREATIVE RECRUITER Ot 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 11/11/2015 VIVIANA GLOVER CREATIVE RECRUITER Ot R10.30 LOWER ABDOMINAL PAIN, UNSPECIFIED 11/11/2015 VIVIANA GLOVER CREATIVE RECRUITER Ot Z79.899 OTHER RESIDENTIAL SALES (CURRENT) DRUG THERAPY 11/12/2015 VIVIANA GLOVER CREATIVE RECRUITER Ot F17.210 NICOTINE DEPENDENCE, CIGARETTES, UNCOMPL 11/12/2015 VIVIANA GLOVER CREATIVE RECRUITER Ot 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 11/12/2015 VIVIANA GLOVER CREATIVE RECRUITER Ot R10.30 LOWER ABDOMINAL PAIN, UNSPECIFIED 11/12/2015 VIVIANA GLOVER CREATIVE RECRUITER Ot Z79.899 OTHER RETIREMENT (CURRENT) DRUG THERAPY 11/18/2015 VIVIANA GLOVER CREATIVE RECRUITER Ot F17.210 NICOTINE DEPENDENCE, CIGARETTES, UNCOMPL 11/18/2015 VIVIANA GLOVER CREATIVE RECRUITER Ot 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 11/18/2015 VIVIANA GLOVER CREATIVE RECRUITER Ot R10.30 LOWER ABDOMINAL PAIN, UNSPECIFIED 11/18/2015 VIVIANA GLOVER CREATIVE RECRUITER Ot Z79.899 OTHER RESIDENTIAL SALES (CURRENT) DRUG THERAPY 01/22/2016 Ot 555.9 REGIONAL ENTERITIS NOS 01/22/2016 Ot V72.84 EXAM PRE- OPERATIVE NOS 01/22/2016 Ot 560.9 INTESTINAL OBSTRUCT NOS 01/22/2016 SHAKA MUNGUIAP Ot 569.9 INTESTINAL DISORDER NOS 01/22/2016 SHAKA MUNGUIAP Ot 592.0 CALCULUS OF KIDNEY 01/22/2016 SHAKA MUNGUIAP Ot 789.00 ABDOMINAL PAIN, UNSPECIFIED SITE 01/22/2016 MAG ANTON, BRENTON Teresa Ot M54.2 CERVICALGIA 01/22/2016 BRENTON HATHAWAY MD Ot R51 HEADACHE 02/10/[address] DO Ot M54.5 LOW BACK PAIN 09/01/2016 Ot 555.9 REGIONAL ENTERITIS NOS 09/01/2016 Ot V72.84 EXAM PRE- OPERATIVE NOS 09/01/2016 Ot 560.9 INTESTINAL OBSTRUCT NOS 09/01/2016 SHAKA MUNUGIAP Ot 569.9 INTESTINAL DISORDER NOS 09/01/2016 SHAKA MUNGUIA Ot 592.0 CALCULUS OF KIDNEY 09/01/2016 NILDA, SHAKA W[employer]HOUSE SHIPPING SUPERVISOR Ot 789.00 ABDOMINAL PAIN, UNSPECIFIED SITE 09/01/2016 MAG ANTON, BRENTON Teresa Ot M54.2 CERVICALGIA 09/01/2016 MAG ANTON, BRENTON Teresa Ot R51 HEADACHE 09/01/2016 YENIFER JANSEN DYLON Jamison Ot M54.5 LOW BACK PAIN 09/02/2016 Ot 555.9 REGIONAL ENTERITIS NOS 09/02/2016 Ot V72.84 EXAM PRE- OPERATIVE NOS 09/02/2016 Ot 560.9 INTESTINAL OBSTRUCT NOS 09/02/2016 SHAKA 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 SHIPPING SUPERVISOR Ot 569.9 INTESTINAL DISORDER NOS 09/02/2016 SHAKA 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 SHIPPING SUPERVISOR Ot 592.0 CALCULUS OF KIDNEY 09/02/2016 SHAKA 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 SHIPPING SUPERVISOR Ot 789.00 ABDOMINAL PAIN, UNSPECIFIED SITE 09/02/2016 MAG ANTON, BRENTON Teresa Ot M54.2 CERVICALGIA 09/02/2016 MAG ANTON, BRENTON Teresa Ot R51 HEADACHE 09/02/2016 YENIFER DO DYLON Jamison Ot M54.5 LOW BACK PAIN 09/02/2016 DELMA DO ANGELA K Ot F17.210 NICOTINE DEPENDENCE, CIGARETTES, UNCOMPL 09/02/2016 DELMA DO, ANGELA K Ot G89.29 OTHER CHRONIC PAIN 09/02/2016 DELMA DO, ANGELA K Ot 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 09/02/2016 DELMA DO, ANGELA K Ot K92.1 MELENA 09/02/2016 DELMA DO ANGELA K Ot M54.9 DORSALGIA, UNSPECIFIED 09/02/2016 DELMA JANSEN ANGELA K Ot Z98.52 VASECTOMY STATUS 09/02/2016 RONY CANTU CREATIVE RECRUITER Ot K50.90 CROHN'S DISEASE, UNSPECIFIED, WITHOUT CO 09/03/2016 RONY CANTU CREATIVE RECRUITER Ot K50.90 CROHN'S DISEASE, UNSPECIFIED, WITHOUT CO 09/03/2016 RONY CANTU CREATIVE RECRUITER Ot K50.90 CROHN'S DISEASE, UNSPECIFIED, WITHOUT CO 09/06/2016 DELMA DO, ANGELA K Ot F17.210 NICOTINE DEPENDENCE, CIGARETTES, UNCOMPL 09/06/2016 DELMA DO, ANGELA K Ot G89.29 OTHER CHRONIC PAIN 09/06/2016 DELMA DO, ANGELA K Ot 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 09/06/2016 ANGELA NGUYỄN DO Ot K92.1 MELENA 09/06/2016 ANGELA NGUYỄN DO Ot M54.9 DORSALGIA, UNSPECIFIED 09/06/2016 ANGELA NGUYỄN DO Ot Z98.52 VASECTOMY STATUS 11/13/2016 RONY CANTU APRN Ot K50.90 CROHN'S DISEASE, UNSPECIFIED, WITHOUT CO Procedures Code Description [place] [address] [facility] DIAGNOSTIC EVALUATION 05/25/2012 23775 UA W/ CULTURE IF INDICATED 05/18/[address] ABDOMEN & PELVIS W/O CONTRAST 05/30/2014 Results Test Result Range Complete blood count (CBC) with automated white blood cell (WBC) differential - 11/11/15 19:05 Blood leukocytes automated count (number/volume) 13.3 10*3/uL 4.3-11.0 Blood erythrocytes automated count (number/volume) 4.68 10*6/uL 4.35-5.85 Venous blood hemoglobin measurement (mass/volume) 14.7 g/dL 13.3-17.7 Blood hematocrit (volume fraction) 42 % 40-54 Automated erythrocyte mean corpuscular volume 90 [foz_us] 80-99 Automated erythrocyte mean corpuscular hemoglobin (mass per erythrocyte) 31 pg 25-34 Automated erythrocyte mean corpuscular hemoglobin concentration measurement ( mass/volume) 35 g/dL 32-36 Automated erythrocyte distribution width ratio 12.9 % 10.0-14.5 Automated blood platelet count (count/volume) 293 10*3/uL 130-400 Automated blood platelet mean volume measurement 9.5 [foz_us] 7.4-10.4 Automated blood neutrophils/100 leukocytes 75 % 42-75 Automated blood lymphocytes/100 leukocytes 15 % 12-44 Blood monocytes/100 leukocytes 9 % 0-12 Automated blood eosinophils/100 leukocytes 1 % 0-10 Automated blood basophils/100 leukocytes 0 % 0-10 Blood neutrophils automated count (number/volume) 10.0 10*3 1.8-7.8 Blood lymphocytes automated count (number/volume) 2.0 10*3 1.0-4.0 Blood monocytes automated count (number/volume) 1.1 10*3 0.0-1.0 Automated eosinophil count 0.2 10*3/uL 0.0-0.3 Automated blood basophil count (count/volume) 0.0 10*3/uL 0.0-0.1 Comprehensive metabolic panel - 11/11/15 19:05 Serum or plasma sodium measurement (moles/volume) 139 mmol/L 135-145 Serum or plasma potassium measurement (moles/volume) 3.9 mmol/L 3.6-5.0 Serum or plasma chloride measurement (moles/volume) 106 mmol/L 98-107 Carbon dioxide 22 mmol/L 21-32 Serum or plasma anion gap determination (moles/volume) 11 mmol/L 5-14 Serum or plasma urea nitrogen measurement (mass/volume) 13 mg/dL 7-18 Serum or plasma creatinine measurement (mass/volume) 1.07 mg/dL 0.60-1.30 Serum or plasma urea nitrogen/creatinine mass ratio 12 NRG Serum or plasma creatinine measurement with calculation of estimated glomerular filtration rate > NRG Serum or plasma glucose measurement (mass/volume) 94 mg/dL 70-105 Serum or plasma calcium measurement (mass/volume) 9.2 mg/dL 8.5-10.1 Serum or plasma total bilirubin measurement (mass/volume) 0.3 mg/dL 0.1-1.0 Serum or plasma alkaline phosphatase measurement (enzymatic activity/volume) 161 U/L 40-136 Serum or plasma aspartate aminotransferase measurement (enzymatic activity/ volume) 20 U/L 5-34 Serum or plasma alanine aminotransferase measurement (enzymatic activity/volume ) 22 U/L 0-55 Serum or plasma protein measurement (mass/volume) 7.0 g/dL 6.4-8.2 Serum or plasma albumin measurement (mass/volume) 4.1 g/dL 3.2-4.5 Urine drug screening test - 11/11/15 20:40 Urine phencyclidine detection by screening method NEGATIVE NEGATIVE Urine benzodiazepines detection by screening method NEGATIVE NEGATIVE Urine cocaine detection NEGATIVE NEGATIVE Urine amphetamines detection by screening method NEGATIVE NEGATIVE Urine methamphetamine detection by screening method NEGATIVE NEGATIVE Urine cannabinoids detection by screening method POSITIVE NEGATIVE Urine opiates detection by screening method NEGATIVE NEGATIVE Urine barbiturates detection NEGATIVE NEGATIVE Screening urine tricyclic antidepressants detection NEGATIVE NEGATIVE Urine methadone detection by screening method NEGATIVE NEGATIVE Urine oxycodone detection NEGATIVE NEGATIVE Urine propoxyphene detection NEGATIVE NEGATIVE Urine buprenophrine screen NEGATIVE NEGATIVE Complete urinalysis with reflex to culture - 09/27/16 20:40 Urine color determination YELLOW NRG Urine clarity determination CLEAR NRG Urine pH measurement by test strip 6.5 5-9 Specific gravity of urine by test strip 1.010 1.016- 1.022 Urine protein assay by test strip, semi-quantitative NEGATIVE NEGATIVE Urine glucose detection by automated test strip NEGATIVE NEGATIVE Erythrocytes detection in urine sediment by light microscopy NEGATIVE NEGATIVE Urine ketones detection by automated test strip NEGATIVE NEGATIVE Urine nitrite detection by test strip NEGATIVE NEGATIVE Urine total bilirubin detection by test strip NEGATIVE NEGATIVE Urine urobilinogen measurement by automated test strip (mass/volume) NORMAL NORMAL Urine leukocyte esterase detection by dipstick NEGATIVE NEGATIVE Automated urine sediment erythrocyte count by microscopy (number/high power field) NONE NRG Automated urine sediment leukocyte count by microscopy (number/high power field ) RARE NRG Bacteria detection in urine sediment by light microscopy NEGATIVE NRG Crystals detection in urine sediment by light microscopy NONE NRG Casts detection in urine sediment by light microscopy NONE NRG Mucus detection in urine sediment by light microscopy NEGATIVE NRG Complete urinalysis with reflex to culture NO NRG Complete blood count (CBC) with automated white blood cell (WBC) differential - 09/01/16 17:30 Blood leukocytes automated count (number/volume) 9.2 10*3/uL 4.3-11.0 Blood erythrocytes automated count (number/volume) 5.07 10*6/uL 4.35-5.85 Venous blood hemoglobin measurement (mass/volume) 15.7 g/dL 13.3-17.7 Blood hematocrit (volume fraction) 46 % 40-54 Automated erythrocyte mean corpuscular volume 90 [foz_us] 80-99 Automated erythrocyte mean corpuscular hemoglobin (mass per erythrocyte) 31 pg 25-34 Automated erythrocyte mean corpuscular hemoglobin concentration measurement ( mass/volume) 34 g/dL 32-36 Automated erythrocyte distribution width ratio 13.1 % 10.0-14.5 Automated blood platelet count (count/volume) 270 10*3/uL 130-400 Automated blood platelet mean volume measurement 10.1 [foz_us] 7.4-10.4 Automated blood neutrophils/100 leukocytes 59 % 42-75 Automated blood lymphocytes/100 leukocytes 27 % 12-44 Blood monocytes/100 leukocytes 12 % 0-12 Automated blood eosinophils/100 leukocytes 2 % 0-10 Automated blood basophils/100 leukocytes 0 % 0-10 Blood neutrophils automated count (number/volume) 5.4 10*3 1.8-7.8 Blood lymphocytes automated count (number/volume) 2.5 10*3 1.0-4.0 Blood monocytes automated count (number/volume) 1.1 10*3 0.0-1.0 Automated eosinophil count 0.2 10*3/uL 0.0-0.3 Automated blood basophil count (count/volume) 0.0 10*3/uL 0.0-0.1 Comprehensive metabolic panel - 09/01/16 17:30 Serum or plasma sodium measurement (moles/volume) 140 mmol/L 135-145 Serum or plasma potassium measurement (moles/volume) 3.7 mmol/L 3.6-5.0 Serum or plasma chloride measurement (moles/volume) 105 mmol/L 98-107 Carbon dioxide 23 mmol/L 21-32 Serum or plasma anion gap determination (moles/volume) 12 mmol/L 5-14 Serum or plasma urea nitrogen measurement (mass/volume) 19 mg/dL 7-18 Serum or plasma creatinine measurement (mass/volume) 1.08 mg/dL 0.60-1.30 Serum or plasma urea nitrogen/creatinine mass ratio 18 NRG Serum or plasma creatinine measurement with calculation of estimated glomerular filtration rate > NRG Serum or plasma glucose measurement (mass/volume) 107 mg/dL 70-105 Serum or plasma calcium measurement (mass/volume) 9.7 mg/dL 8.5-10.1 Serum or plasma total bilirubin measurement (mass/volume) 0.3 mg/dL 0.1-1.0 Serum or plasma alkaline phosphatase measurement (enzymatic activity/volume) 154 U/L 40-136 Serum or plasma aspartate aminotransferase measurement (enzymatic activity/ volume) 25 U/L 5-34 Serum or plasma alanine aminotransferase measurement (enzymatic activity/volume ) 39 U/L 0-55 Serum or plasma protein measurement (mass/volume) 7.8 g/dL 6.4-8.2 Serum or plasma albumin measurement (mass/volume) 4.5 g/dL 3.2-4.5 Serum or plasma C reactive protein measurement (mass/volume) - 09/01/16 17:30 Serum or plasma C reactive protein measurement (mass/volume) 0.26 mg /dL 0.00-0.50 C DIFFICILE AG + TOXIN A/B. - 09/02/16 07:30 RESULTS NEGATIVE FOR ANTIGEN AND TOXIN A/B NRG Complete blood count (CBC) with automated white blood cell (WBC) differential - 09/02/16 10:03 Blood leukocytes automated count (number/volume) 8.5 10*3/uL 4.3-11.0 Blood erythrocytes automated count (number/volume) 4.93 10*6/uL 4.35-5.85 Venous blood hemoglobin measurement (mass/volume) 15.3 g/dL 13.3-17.7 Blood hematocrit (volume fraction) 45 % 40-54 Automated erythrocyte mean corpuscular volume 91 [foz_us] 80-99 Automated erythrocyte mean corpuscular hemoglobin (mass per erythrocyte) 31 pg 25-34 Automated erythrocyte mean corpuscular hemoglobin concentration measurement ( mass/volume) 34 g/dL 32-36 Automated erythrocyte distribution width ratio 13.1 % 10.0-14.5 Automated blood platelet count (count/volume) 247 10*3/uL 130-400 Automated blood platelet mean volume measurement 9.6 [foz_us] 7.4-10.4 Automated blood neutrophils/100 leukocytes 66 % 42-75 Automated blood lymphocytes/100 leukocytes 20 % 12-44 Blood monocytes/100 leukocytes 11 % 0-12 Automated blood eosinophils/100 leukocytes 2 % 0-10 Automated blood basophils/100 leukocytes 1 % 0-10 Blood neutrophils automated count (number/volume) 5.6 10*3 1.8-7.8 Blood lymphocytes automated count (number/volume) 1.7 10*3 1.0-4.0 Blood monocytes automated count (number/volume) 1.0 10*3 0.0-1.0 Automated eosinophil count 0.2 10*3/uL 0.0-0.3 Automated blood basophil count (count/volume) 0.0 10*3/uL 0.0-0.1 PT panel in platelet poor plasma by coagulation assay - 09/02/16 10:03 Prothrombin time (PT) in platelet poor plasma by coagulation assay 12.0 s 12.2-14.7 INR in platelet poor plasma or blood by coagulation assay 0.9 0.8-1.4 Activated partial thromboplastin time (aPTT) in platelet poor plasma bycoagulation assay - 09/02/16 10:03 Activated partial thromboplastin time (aPTT) in platelet poor plasma bycoagulation assay 27 s 24-35 Comprehensive metabolic panel - 09/02/16 10:03 Serum or plasma sodium measurement (moles/volume) 139 mmol/L 135-145 Serum or plasma potassium measurement (moles/volume) 4.1 mmol/L 3.6-5.0 Serum or plasma chloride measurement (moles/volume) 107 mmol/L 98-107 Carbon dioxide 26 mmol/L 21-32 Serum or plasma anion gap determination (moles/volume) 6 mmol/L 5-14 Serum or plasma urea nitrogen measurement (mass/volume) 16 mg/dL 7-18 Serum or plasma creatinine measurement (mass/volume) 0.93 mg/dL 0.60-1.30 Serum or plasma urea nitrogen/creatinine mass ratio 17 NRG Serum or plasma creatinine measurement with calculation of estimated glomerular filtration rate > NRG Serum or plasma glucose measurement (mass/volume) 97 mg/dL 70-105 Serum or plasma calcium measurement (mass/volume) 9.4 mg/dL 8.5-10.1 Serum or plasma total bilirubin measurement (mass/volume) 0.5 mg/dL 0.1-1.0 Serum or plasma alkaline phosphatase measurement (enzymatic activity/volume) 145 U/L 40-136 Serum or plasma aspartate aminotransferase measurement (enzymatic activity/ volume) 26 U/L 5-34 Serum or plasma alanine aminotransferase measurement (enzymatic activity/volume ) 38 U/L 0-55 Serum or plasma protein measurement (mass/volume) 7.1 g/dL 6.4-8.2 Serum or plasma albumin measurement (mass/volume) 4.1 g/dL 3.2-4.5 Magnesium - 09/02/16 10:03 Magnesium 1.8 mg/dL 1.8-2.4 Complete urinalysis with reflex to culture - 09/02/16 11:00 Urine color determination YELLOW NRG Urine clarity determination SLIGHTLY CLOUDY NRG Urine pH measurement by test strip 6 5-9 Specific gravity of urine by test strip 1.015 1.016- 1.022 Urine protein assay by test strip, semi-quantitative NEGATIVE NEGATIVE Urine glucose detection by automated test strip NEGATIVE NEGATIVE Erythrocytes detection in urine sediment by light microscopy NEGATIVE NEGATIVE Urine ketones detection by automated test strip NEGATIVE NEGATIVE Urine nitrite detection by test strip NEGATIVE NEGATIVE Urine total bilirubin detection by test strip NEGATIVE NEGATIVE Urine urobilinogen measurement by automated test strip (mass/volume) NORMAL NORMAL Urine leukocyte esterase detection by dipstick NEGATIVE NEGATIVE Automated urine sediment erythrocyte count by microscopy (number/high power field) NONE NRG Automated urine sediment leukocyte count by microscopy (number/high power field ) [HPF] NRG Bacteria detection in urine sediment by light microscopy NEGATIVE NRG Squamous epithelial cells detection in urine sediment by light microscopy RARE NRG Crystals detection in urine sediment by light microscopy NONE NRG Casts detection in urine sediment by light microscopy NONE NRG Mucus detection in urine sediment by light microscopy SMALL NRG Complete urinalysis with reflex to culture NO NRG Urine drug screening test - 09/02/16 11:00 Urine phencyclidine detection by screening method NEGATIVE NEGATIVE Urine benzodiazepines detection by screening method NEGATIVE NEGATIVE Urine cocaine detection NEGATIVE NEGATIVE Urine amphetamines detection by screening method NEGATIVE NEGATIVE Urine methamphetamine detection by screening method NEGATIVE NEGATIVE Urine cannabinoids detection by screening method POSITIVE NEGATIVE Urine opiates detection by screening method NEGATIVE NEGATIVE Urine barbiturates detection NEGATIVE NEGATIVE Screening urine tricyclic antidepressants detection NEGATIVE NEGATIVE Urine methadone detection by screening method NEGATIVE NEGATIVE Urine oxycodone detection NEGATIVE NEGATIVE Urine propoxyphene detection NEGATIVE NEGATIVE Encounters ACCT No. Visit Date/Time Discharge Status Pt. Type Provider Facility Loc./Unit Complaint [id number] 10/19/2013 23:48:00 10/20/2013 01:08:00 DIS Emergency [id number] 04/25/2013 19:53:00 04/25/2013 22:12:00 DIS Emergency [id number] 04/23/2013 10:22:00 04/23/2013 13:48:00 DIS Emergency [id number] 08/22/2012 12:18:00 08/22/2012 23:59:59 CLS Outpatient [id number] 06/27/2012 10:53:00 06/27/2012 23:59:59 CLS Outpatient [id number] 05/18/2014 10:44:00 05/18/2014 23:59:59 CLS Outpatient SHAKA MUNGUIA APRN [id number] 08/22/2013 08:24:00 08/22/2013 23:59:59 CLS Outpatient HALEY SYKES DO [id number] 03/17/2013 13:37:00 03/17/2013 23:59:59 CLS Outpatient ROBEL BOWLING APRN [id number] 05/23/2012 08:25:00 05/23/2012 23:59:59 CLS Outpatient [id number] 11/14/2016 00:24:00 11/14/2016 23:59:59 CLS Preadmit RONY CANTU CREATIVE RECRUITER [facility] LAB K50.90 [id number] 09/02/2016 08:52:00 11/13/2016 00:01:00 DIS Outpatient RONY CANTU CREATIVE RECRUITER [facility] LAB K50.90 [id number] 09/02/2016 08:58:00 09/02/2016 11:36:00 DIS Emergency ANGELA NGUYỄN DO [facility] ER BLOOD IN STOOL [id number] 01/22/2016 16:55:00 01/22/2016 23:59:59 CLS Outpatient YENIFER JANSEN DYLON Jamison [facility] RAD LOW BACK PAIN [id number] 11/11/2015 18:39:00 11/11/2015 21:30:00 DIS Emergency VIVIANA GLOVER CREATIVE RECRUITER [facility] ER ABD PAIN/CRAMPING [id number] 08/22/2015 14:17:00 08/22/2015 17:03:00 DIS Emergency SUNNI LA MD [facility] ER ABD PAIN [id number] 03/12/2015 13:04:00 03/12/2015 23:59:59 CLS Outpatient BRENTON HATHAWAY MD [facility] REHAB NECK AND UPPER BACK PAIN [id number] 02/21/2015 10:30:00 02/21/2015 23:59:59 CLS Outpatient BRENTON HATHAWAY MD [facility] RAD HEADACHE, NECK PAIN [id number] 05/30/2014 09:26:00 05/30/2014 23:59:59 CLS Outpatient SHAKA MUNGUIA [facility] RAD STONE SEARCH [id number] 02/19/2014 21:02:00 02/19/2014 23:55:00 DIS Emergency STONE OLVERA MD [facility] ER PAIN FROM CROHNS [id number] 10/04/2013 15:07:00 10/04/2013 23:59:59 CLS Outpatient [id number] 02/19/2014 21:07:00 Document Registration [id number] 02/19/2014 21:07:00 Document Registration [id number] 10/19/2013 23:48:00 Document Registration [id number] 04/25/2013 19:53:00 Document Registration [id number] 04/23/2013 10:22:00 Document Registration [id number] 03/02/2012 08:33:00 Document Registration [id number] 11/23/2011 08:42:00 Document Registration [id number] 11/15/2011 11:10:00 Document Registration [id number] 11/12/2011 08:45:00 Document Registration [id number] 11/03/2011 09:14:00 Document Registration [id number] 10/22/2011 12:09:00 Document Registration [id number] 08/31/2011 20:55:00 Document Registration [id number] 07/21/2011 12:51:00 Document Registration [id number] 10/08/2010 20:15:00 Document Registration [id number] 08/05/2009 00:00:00 Document Registration [id number] 05/06/2009 16:44:00 Document Registration [id number] 02/10/2009 12:53:00 Document Registration [id number] 01/29/2009 05:43:00 Document Registration [id number] 01/27/2009 10:52:00 Document Registration [id number] 01/15/2009 16:26:00 Document Registration [id number] 01/13/2009 14:53:00 Document Registration
[2017-02-09] MEDS ORDERED: NS IV 1000 ML 1,000 ML IV SCH (10:30)
--- NOTE | 2017-02-09 10:39 | ED General ---
General Chief Complaint: Fever-Adult/Adol Stated Complaint: FEVER,DIARRHEA-HX OF CROHN'S DISEASE Nursing Triage Note: C/O NOT FEELING WELL FOR THE LAST COUPLE OF DAYS. STATES HE HAD FEVER, BUT DOES NOT KNOW TEMP. STATES HE HAD SWEATING WITH FEVER, THINKS IT BROKE THIS AM. DID HAVE DIARRHEA ET NAUSEA WITH ILLNESS, STATES IT HAS RESOLVED. PT. STATES HE HAS CROHN'S DISEASE SINE 16 YO. TOOK SOME OF THE FLAGYL THAT WAS LEFT OVER FROM THE CROHN'S FLAREUP. PT. HAS ALSO BEEN FEELING CONGESTED ET HAS BEEN COUGHING; "HACKING UP STUFF". PT. ALSO STATES HE'S HERE TO MAKE SURE THAT HIS CROHN'S IS NOT ACTING UP Nursing Sepsis Screen: Possible Sepsis Risk Source of Information: Patient Exam Limitations: No Limitations History of Present Illness Time Seen by Provider: 10:37 Initial Comments To ER with general malaise. States that he has had intermittent fever and a productive cough. He states that he has a history of Crohn's and has had nonbloody diarrhea for the past several weeks but no abdominal pain. No nausea. Stopped the Humira that he was taking for his Crohn's 3 months ago due to weight gain and joint aches. he took a flagyl and prednisone yesterday. Timing/Duration: Intermittent Severity: Moderate Allergies and Home Medications Allergies Coded Allergies: propoxyphene napsylate (Unverified Allergy, Severe, SEIZURES, 11/14/13) Home Medications Ciprofloxacin HCl 500 Mg Tablet, 500 MG PO BID, #14 Prescribed by: VIVIANA GLOVER on 02/09/17 1242 Hydrocodone/Acetaminophen 1 Each Tablet, 1 EACH PO Q6H PRN for PAIN-MODERATE TO SEVERE, #10 do not fill unless antibiotics are also filled. Prescribed by: VIVIANA GLOVER on 02/09/17 1242 Hydrocodone/Ibuprofen 1 Each Tablet, 1 EACH PO PRN, (Reported) Lactobacillus Acidophilus 1 Each Capsule, 2 EACH PO QID, #80 Prescribed by: ANGELA NGUYỄN on 09/02/16 1110 Metronidazole 500 Mg Tablet, 500 MG PO BID, #20 Prescribed by: SUNNI GONZALEZ on 08/22/15 1651 Metronidazole 500 Mg Tablet, 500 MG PO QID, #40 Prescribed by: ANGELA NGUYỄN on 09/02/16 1110 Metronidazole 500 Mg Tablet, 500 MG PO TID, #15 Prescribed by: VIVIANA GLOVER on 02/09/17 1242 Prednisone 20 Mg Tab, 40 MG PO BID, #10 Prescribed by: SUNNI GONZALEZ on 08/22/15 1651 Prednisone 5 Mg Tablet, 5 MG PO UD, #78 12 PILLS DAY 1, THEN DECREASE BY 1 PILL A DAY UNTIL GONE Prescribed by: ANGELA NGUYỄN on 09/02/16 1110 Prednisone 5 Mg Tablet, 5 MG PO UD, #55 Take 50 mg on day 1, then reduce by 1 tablet daily until gone Prescribed by: VIVIANA GLOVER on 02/09/17 1242 Constitutional: see HPI, chills EENTM: see HPI Respiratory: see HPI, cough Cardiovascular: no symptoms reported Gastrointestinal: No abdominal pain, diarrhea Genitourinary: no symptoms reported Musculoskeletal: no symptoms reported Skin: no symptoms reported Psychiatric/Neurological: No Symptoms Reported Hematologic/Lymphatic: No Symptoms Reported Past Shdooca-Ghyfnw-Rchgll Hx Patient Social History Alcohol Use: Occasionally Uses Alcohol Beverage of Choice: Beer Recreational Drug Use: No Type Used: Cigarettes Recent Foreign Travel: No Contact w/Someone Who Travel: No Recent Infectious Disease Expo: No Recent Hopitalizations: No Seasonal Allergies Seasonal Allergies: No Surgeries History of Surgeries: Yes (COLONOSCOPIES) Surgeries: Vasectomy Respiratory History of Respiratory Disorde: No Cardiovascular History of Cardiac Disorders: No Neurological History of Neurological Disord: No Reproductive System Hx Reproductive Disorders: No Genitourinary Genitourinary Disorders: Kidney Stones Gastrointestinal History of Gastrointestinal Di: Yes Gastrointestinal Disorders: Crohns Disease Musculoskeletal History of Musculoskeletal Dis: Yes (CHRONIC NECK AND BACK PAIN ) Musculoskeletal Disorders: Chronic Back Pain Endocrine History of Endocrine Disorders: No Cancer History of Cancer: No Psychosocial History of Psychiatric Problem: No Integumentary History of Skin or Integumenta: No Blood Transfusions History of Blood Disorders: No Physical Exam Vital Signs Vital Sign - Last 12Hours 02/09/17 10:18 Temp 98.2 Pulse 92 Resp 18 B/P (MAP) 109/79 (89) Pulse Ox 97 O2 Delivery Room Air Capillary Refill : Less Than 3 Seconds General Appearance: No Apparent Distress, WD/WN Eyes: Bilateral Eye Normal Inspection, Bilateral Eye PERRL, Bilateral Eye EOMI HEENT: PERRL/EOMI, TMs Normal Neck: Full Range of Motion, Normal Inspection Respiratory: Normal Breath Sounds, No Accessory Muscle Use, No Respiratory Distress Cardiovascular: Regular Rate, Rhythm, Normal Peripheral Pulses Gastrointestinal: Normal Bowel Sounds, Non Tender, Soft Extremity: Normal Capillary Refill, Normal Inspection Neurologic/Psychiatric: Alert, Oriented x3 Focused Exam Evaluation Lactate Level Laboratory Tests 02/09/17 11:26: Lactic Acid Level 1.08 Lactic Acid Level Laboratory Tests Test 02/09/17 11:26 Lactic Acid Level 1.08 MMOL/L (0.50-2.00) Progress/Results/Core Measures Suspected Sepsis Recent Fever Within 48 Hours: Yes Infection Criteria Present: Suspected New Infection New/Unexplained Altered Menta: No Sepsis Screen: Possible Sepsis Risk Sepsis Diagnosis: SIRS Temperature:98.2 Pulse: 92 Respiratory Rate: 18 Laboratory Tests 02/09/17 10:22: White Blood Count 20.8H Blood Pressure 109 /79 Mean: 89 Laboratory Tests 02/09/17 11:26: Lactic Acid Level 1.08 Laboratory Tests 02/09/17 10:22: Creatinine 1.08, Platelet Count 287, Total Bilirubin 0.3 Results/Orders Lab Results Laboratory Tests Test 02/09/17 10:22 02/09/17 11:26 02/09/17 13:00 Range/Units White Blood Count 20.8 H 4.3-11.0 10^3/uL Red Blood Count 5.29 4.35-5.85 10^6/uL Hemoglobin 16.3 13.3-17.7 G/DL Hematocrit 47 40-54 % Mean Corpuscular Volume 88 80-99 FL Mean Corpuscular Hemoglobin 31 25-34 PG Mean Corpuscular Hemoglobin Concent 35 32-36 G/DL Red Cell Distribution Width 12.9 10.0-14.5 % Platelet Count 287 130-400 10^3/uL Mean Platelet Volume 9.8 7.4-10.4 FL Neutrophils (%) (Auto) 85 H 42-75 % Lymphocytes (%) (Auto) 7 L 12-44 % Monocytes (%) (Auto) 8 0-12 % Eosinophils (%) (Auto) 0 0-10 % Basophils (%) (Auto) 0 0-10 % Neutrophils # (Auto) 17.7 H 1.8-7.8 X 10^3 Lymphocytes # (Auto) 1.5 1.0-4.0 X 10^3 Monocytes # (Auto) 1.6 H 0.0-1.0 X 10^3 Eosinophils # (Auto) 0.0 0.0-0.3 10^3/uL Basophils # (Auto) 0.0 0.0-0.1 10^3/uL Neutrophils % (Manual) 78 % Lymphocytes % (Manual) 8 % Monocytes % (Manual) 6 % Eosinophils % (Manual) 0 % Basophils % (Manual) 0 % Band Neutrophils 8 % Blood Morphology Comment NORMAL Erythrocyte Sedimentation Rate 2 0-15 MM/HR Sodium Level 143 135-145 MMOL/L Potassium Level 4.3 3.6-5.0 MMOL/L Chloride Level 104 98-107 MMOL/L Carbon Dioxide Level 27 21-32 MMOL/L Anion Gap 12 5-14 MMOL/L Blood Urea Nitrogen 20 H 7-18 MG/DL Creatinine 1.08 0.60-1.30 MG/DL Estimat Glomerular Filtration Rate > 60 BUN/Creatinine Ratio 19 Glucose Level 120 H 70-105 MG/DL Calcium Level 9.8 8.5-10.1 MG/DL Total Bilirubin 0.3 0.1-1.0 MG/DL Aspartate Amino Transf (AST/SGOT) 29 5-34 U/L Alanine Aminotransferase (ALT/SGPT) 45 0-55 U/L Alkaline Phosphatase 147 H 40-136 U/L C-Reactive Protein High Sensitivity 0.70 H 0.00-0.50 MG/DL Total Protein 7.9 6.4-8.2 GM/DL Albumin 4.4 3.2-4.5 GM/DL Lactic Acid Level 1.08 0.50-2.00 MMOL/L Urine Color YELLOW Urine Clarity CLEAR Urine pH 7 5-9 Urine Specific Bogart 1.005 L 1.016-1.022 Urine Protein 1+ H NEGATIVE Urine Glucose (UA) NEGATIVE NEGATIVE Urine Ketones NEGATIVE NEGATIVE Urine Nitrite NEGATIVE NEGATIVE Urine Bilirubin NEGATIVE NEGATIVE Urine Urobilinogen NORMAL NORMAL MG/DL Urine Leukocyte Esterase NEGATIVE NEGATIVE Urine RBC (Auto) NEGATIVE NEGATIVE Urine RBC NONE /HPF Urine WBC 0-2 /HPF Urine Crystals NONE /LPF Urine Bacteria NEGATIVE /HPF Urine Casts NONE /LPF Urine Mucus SMALL H /LPF Urine Culture Indicated NO Micro Results Microbiology 02/09/17 Influenza Types A,B Antigen (NIDA) - Final, Complete My Orders Orders - VIVIANA GLOVER APRN Saline Lock/Iv-Start (02/09/17 10:23) Cbc With Automated Diff (02/09/17 10:23) Comprehensive Metabolic Panel (02/09/17 10:23) Ua Culture If Indicated (02/09/17 10:23) Drug Screen Stat (Urine) (02/09/17 10:23) Ns Iv 1000 Ml (Sodium Chloride 0.9%) (02/09/17 10:30) Influenza A And B Antigens (02/09/17 10:33) Chest Pa/Lat (2 View) (02/09/17 10:42) Manual Differential (02/09/17 10:22) Erythrocyte Sedimentation Rate (02/09/17 11:09) Hs C Reactive Protein (02/09/17 11:09) Ct Abdomen/Pelvis W (02/09/17 11:09) Blood Culture (02/09/17 11:11) Lactic Acid Analyzer (02/09/17 11:11) Iohexol Injection (Omnipaque 350 Mg/Ml 1 (02/09/17 11:45) Ns (Ivpb) (Sodium Chloride 0.9% Ivpb Bag (02/09/17 11:45) Medications Given in ED Current Medications Medications Dose Ordered Sig/Iban Route Start Time Stop Time Status Last Admin Dose Admin Iohexol 100 ml ONCE ONCE IV 02/09/17 11:45 02/09/17 11:51 DC 02/09/17 12:03 100 ML Sodium Chloride 100 ml ONCE ONCE IV 02/09/17 11:45 02/09/17 11:51 DC 02/09/17 12:03 80 ML Vital Signs/I&O Vital Sign - Last 12Hours 02/09/17 10:18 Temp 98.2 Pulse 92 Resp 18 B/P (MAP) 109/79 (89) Pulse Ox 97 O2 Delivery Room Air Capillary Refill : Less Than 3 Seconds Blood Pressure Mean: 89 Departure Impression Impression: Primary Impression: Crohns disease Disposition: 01 HOME, SELF-CARE Condition: Stable Departure-Patient Inst. Decision time for Depature: 12:37 Referrals: TRUDY BOTELLO MD (PCP/Family) Primary Care Physician Patient Instructions: Crohn's Disease (DC), VIRAL SYNDROME Add. Discharge Instructions: 1. Take steroids as directed 2. Take antibiotics as directed 3. Return to ER for any concerns 4. Follow up with your doctor next week for recheck. All discharge instructions reviewed with patient and/or family. Voiced understanding. Scripts Prednisone (Prednisone) 5 Mg Tablet 5 MG PO UD, #55 TAB Take 50 mg on day 1, then reduce by 1 tablet daily until gone Prov: VIVIANA GLOVER APRN 02/09/17 Metronidazole (Flagyl) 500 Mg Tablet 500 MG PO TID, #15 TAB Prov: VIVIANA GLOVER APRN 02/09/17 Hydrocodone/Acetaminophen ([place] 5-325 Tablet) 1 Each Tablet 1 EACH PO Q6H Y for PAIN-MODERATE TO SEVERE, #10 TAB do not fill unless antibiotics are also filled. Prov: VIVIANA GLOVER APRN 02/09/17 Ciprofloxacin HCl (Cipro) 500 Mg Tablet 500 MG PO BID, #14 TAB Prov: VIVIANA GLOVER APRN 02/09/17 Work/School Note: Work Release Form Date Seen in the Emergency Department: Feb 09, 2017 Return to Work: Feb 11, 2017 VIVIANA GLOVER APRN Feb 09, 2017 10:39
[2017-02-09 10:41] LABS: BASOPHILS % (AUTO) 0 % (0-10); EOSINOPHILS % (AUTO) 0 % (0-10); LYMPHOCYTES # (AUTO) 1.5 X 10^3 (1.0-4.0); LYMPHOCYTES % (AUTO) 7 % (12-44); MEAN CORPUSCULAR HEMOGLOBIN 31 PG (25-34); MEAN CORPUSCULAR HGB CONC 35 G/DL (32-36); MEAN CORPUSCULAR VOLUME 88 FL (80-99); MEAN PLATELET VOLUME 9.8 FL (7.4-10.4); MONOCYTES # (AUTO) 1.6 X 10^3 (0.0-1.0); MONOCYTES % (AUTO) 8 % (0-12); NEUTROPHILS # (AUTO) 17.7 X 10^3 (1.8-7.8); NEUTROPHILS % (AUTO) 85 % (42-75); PLATELET COUNT 287 10^3/uL (130-400); RED BLOOD COUNT 5.29 10^6/uL (4.35-5.85); RED CELL DISTRIBUTION WIDTH 12.9 % (10.0-14.5); WHITE BLOOD COUNT 20.8 10^3/uL (4.3-11.0)
[2017-02-09 10:57] LABS: BAND NEUTROPHILS 8 %; BASOPHILS % (MANUAL) 0 %; EOSINOPHILS % (MANUAL) 0 %; LYMPHOCYTES % (MANUAL) 8 %; NEUTROPHILS % (MANUAL) 78 %
[2017-02-09 11:08] LABS: ALANINE AMINOTRANSFERASE 45 U/L (0-55); ALBUMIN 4.4 GM/DL (3.2-4.5); ANION GAP 12 MMOL/L (5-14); ASPARTATE AMINO TRANSFERASE 29 U/L (5-34); BILIRUBIN,TOTAL 0.3 MG/DL (0.1-1.0); BLOOD UREA NITROGEN 20 MG/DL (7-18); BUN/CREATININE RATIO 19; CALCIUM 9.8 MG/DL (8.5-10.1); CARBON DIOXIDE 27 MMOL/L (21-32); CHLORIDE 104 MMOL/L (98-107); CREATININE SERUM 1.08 MG/DL (0.60-1.30); GFR ESTIMATED > 60; GLUCOSE 120 MG/DL (70-105); POTASSIUM 4.3 MMOL/L (3.6-5.0); SODIUM 143 MMOL/L (135-145); TOTAL PROTEIN 7.9 GM/DL (6.4-8.2)
--- NOTE | 2017-02-09 11:35 | Diagnostic Imaging Report ---
INDICATION: Fever COMPARISON: 08/31/2011 FINDINGS: Frontal and lateral views of the chest demonstrate normal heart size and pulmonary vascularity. The lungs are clear. There are no signs of infiltrate, pleural effusions or pneumothoraces. The visualized osseous structures show no acute abnormalities. IMPRESSION: 1. No acute process. No signs of infiltrates, effusions or pneumothoraces. Dictated by: Dictated on workstation # [id number]
[2017-02-09] MEDS ORDERED: NS 100 ML (IVPB) BAG IV ONE (11:45)
[2017-02-09] MEDS ORDERED: IOHEXOL 350 MG/ML 100 ML (OMNIPAQUE 350) VIAL IV ONE (11:45)
--- NOTE | 2017-02-09 12:33 | Diagnostic Imaging Report ---
EXAMINATION: CT abdomen and pelvis with contrast from 02/09/2017. TECHNIQUE: Multiple contiguous axial images were obtained through the abdomen and pelvis after administration of intravenous contrast. INDICATION: Fever, diarrhea, history of Crohn's. COMPARISON: 09/02/2016. FINDINGS: Several abnormal-appearing small bowel loops are seen within the midabdomen. The terminal ileum is abnormal in appearance as well. Portion of the distal ileum is dilated. Wall of the distal ileum contains fatty change as do portions of the colon, consistent with the history of known Crohn's. There is minimal fat stranding within the mid and right paracentral mid mesentery. Several abnormal small bowel loops in this region also noted. No free air appreciated. No abscesses visualized. The liver, spleen, gallbladder, and adrenal glands as well as pancreas are unremarkable. Kidneys contain stones but no obstructive process appreciated. The lung bases are clear and the osseous structures are unremarkable. IMPRESSION: 1. Findings in the midabdominal small bowel loops, consistent with the known history of Crohn's with a likely superimposed acute inflammatory process. 2. Findings in the ascending colon and very distal terminal ileum appear to be chronic. The other incidental findings described above are stable. Dictated by: Dictated on workstation # [id number]
[2017-02-09] MEDS ORDERED: CIPR-225 PO (12:42)
[2017-02-09] MEDS ORDERED: HYDR-757 PO (12:42)
[2017-02-09] MEDS ORDERED: PRED5TAB PO (12:42)
[2017-02-09] MEDS ORDERED: METR500T PO (12:42)
[2017-02-09 13:05] LABS: BILIRUBIN,URINE NEGATIVE (NEGATIVE); KETONES,URINE NEGATIVE (NEGATIVE); LEUKOCYTE ESTERASE ,URINE NEGATIVE (NEGATIVE); NITRITE,URINE NEGATIVE (NEGATIVE); PH,URINE 7 (5-9); PROTEIN,URINE 1+ (NEGATIVE); UROBILINOGEN,URINE NORMAL (NORMAL)
[2017-02-09 13:15] LABS: WBC,URINE 0-2 /HPF
[2017-02-09 13:24] VITALS: BP 118/70
== END 2017-02-09 13:23 | disposition home or self-care (01) ==
LOC: EDUNIT# 09:38 → ER 09:41
DX: K50.90 Crohn's disease, unspecified, without complications (principal); Z98.52 Vasectomy status; Z87.442 Personal history of urinary calculi
CPT/HCPCS: 36415; 71020; 74177; 80053; 80306; 81000; 83605; 85007; 85027; 85652; 86141; 87040; 87804; 96360; 96361

== ENCOUNTER → 2017-03-16 | Outpatient (CLI) | payer MEDICAID ==
[~2017-03-16] MED LIST changes: +HYDR-757 PO
[2017-03-16 17:19] LABS: BILIRUBIN,URINE NEGATIVE (NEGATIVE); CLARITY,URINE CLEAR; COLOR,URINE YELLOW; GLUCOSE, URINE (UA) NEGATIVE (NEGATIVE); KETONES,URINE NEGATIVE (NEGATIVE); LEUKOCYTE ESTERASE ,URINE NEGATIVE (NEGATIVE); NITRITE,URINE NEGATIVE (NEGATIVE); PH,URINE 5 (5-9); PROTEIN,URINE NEGATIVE (NEGATIVE); UROBILINOGEN,URINE NORMAL (NORMAL)
[2017-03-16 17:28] LABS: BACTERIA,URINE NEGATIVE /HPF; RBC,URINE 0-2 /HPF; WBC,URINE 0-2 /HPF
[2017-03-16 17:33] LABS: BASOPHILS % (AUTO) 0 % (0-10); EOSINOPHILS # (AUTO) 0.2 10^3/uL (0.0-0.3); EOSINOPHILS % (AUTO) 2 % (0-10); HEMATOCRIT 41 % (40-54); HEMOGLOBIN 14.7 G/DL (13.3-17.7); LYMPHOCYTES # (AUTO) 2.5 X 10^3 (1.0-4.0); LYMPHOCYTES % (AUTO) 25 % (12-44); MEAN CORPUSCULAR HEMOGLOBIN 32 PG (25-34); MEAN CORPUSCULAR HGB CONC 36 G/DL (32-36); MEAN CORPUSCULAR VOLUME 89 FL (80-99); MEAN PLATELET VOLUME 9.4 FL (7.4-10.4); MONOCYTES % (AUTO) 10 % (0-12); NEUTROPHILS # (AUTO) 6.2 X 10^3 (1.8-7.8); NEUTROPHILS % (AUTO) 63 % (42-75); PLATELET COUNT 267 10^3/uL (130-400); RED BLOOD COUNT 4.64 10^6/uL (4.35-5.85); RED CELL DISTRIBUTION WIDTH 12.8 % (10.0-14.5); WHITE BLOOD COUNT 9.8 10^3/uL (4.3-11.0)
[2017-03-16 18:07] LABS: ALANINE AMINOTRANSFERASE 47 U/L (0-55); ALBUMIN 4.3 GM/DL (3.2-4.5); ALKALINE PHOSPHATASE 158 U/L (40-136); BILIRUBIN,TOTAL 0.4 MG/DL (0.1-1.0); BUN/CREATININE RATIO 16; CALCIUM 9.4 MG/DL (8.5-10.1); CARBON DIOXIDE 23 MMOL/L (21-32); CHLORIDE 105 MMOL/L (98-107); CREATININE SERUM 1.31 MG/DL (0.60-1.30); GFR ESTIMATED > 60; GLUCOSE 88 MG/DL (70-105); POTASSIUM 3.9 MMOL/L (3.6-5.0); SODIUM 140 MMOL/L (135-145); TOTAL PROTEIN 7.6 GM/DL (6.4-8.2)
== END ==
LOC: LAB 17:02
DX: R53.1 Weakness (principal); R82.90 Unspecified abnormal findings in urine
CPT/HCPCS: 36415; 80053; 81000; 85025

== ENCOUNTER 2017-03-27 18:44 | Emergency (ER) | payer MEDICAID ==
[~2017-03-27] VITALS: Ht 167.6 cm; Wt 87.1 kg
[2017-03-27] MEDS ORDERED: PANTOPRAZOLE 40 MG/10 ML (PROTONIX) VIAL IV STA (20:02)
[2017-03-27] MEDS ORDERED: LACTATED RINGERS 1,000 ML IV ONE (20:02)
--- NOTE | 2017-03-27 20:03 | ED General ---
General Chief Complaint: General Problems/Pain Stated Complaint: N/V BODYACHES, HEADACHE Nursing Triage Note: AMBULATED TO TRIAGE ROOM. STATES HE TOOK HIS INJECTION FOR CHRONS ON TUESDAY AND HAS HAD N/V, BODY AND HEADACHES SINCE. STATES THIS IS THE 2ND TIME IT HAS HAPPENED AND THE ZOFRAN IS NOT WORKING. Nursing Sepsis Screen: No Definite Risk Source of Information: Patient History of Present Illness Date Seen by Provider: Mar 27, 2017 Time Seen by Provider: 19:45 Initial Comments PT C/O BODY ACHES,HEADACHE AND NAUSEA/VOMITING/DIARRHEA SINCE Tuesday03/25/17 STATES HE JUST STARTED WEEKLY SUB Q INJECTIONS OF METHOTREXATE FOR CROHN'S DISEASE, AND TUESDAY WAS HIS SECOND DOSE--STATES HE FELT THE SAME WAY AFTER THE FIRST INJECTION. PT SELF INJECTS MEDICATIONS IN ABDOMEN ALSO STARTED TAKING FOLIC ACID ON TUESDAY WELL STATES HE THINKS THESE SYMPTOMS ARE FROM METHOTREXATE. HAS TO DO INJECTIONS WEEKLY X 8 WEEKS, THEN WILL SWITCH TO ORAL MEDICATIONS ACCORDING TO PT. PT ALSO TAKES HUMIRA EVERY OTHER WEEK, THIS IS HIS "OFF" WEEK NO IMPROVEMENT IN NAUSEA/VOMITING WITH ZOFRAN--LATER HE STATES NOT ACTUALLY VOMITING--"JUST A LITTLE ACID IN MY MOUTH" HAD DIARRHEA ALL NIGHT TUESDAY NIGHT AND DURING THE NIGHT LAST NIGHT, BUT NONE SINCE 99 HAVING SOME MILD MID ABDOMINAL CRAMPING. BUT NOT NOW. STATES HE HAS HAD MINIMAL FOOD INTAKE SINCE TUESDAY-BLAND DIET, BUT KEEPING LIQUIDS DOWN--DRINKING LOTS OF FLUIDS PT HAS HAD DECREASED URINE OUTPUT SINCE TUESDAY NO FEVER NO SICK CONTACTS WITH GI ILLNESS, AND NO SUSPICIOUS FOODS STATES HE AND ENTIRE HOUSEHOLD HAVE HAD MILD COLD SYMPTOMS THIS WEEK BUT PT STATES HIS SYMPTOMS HAVE RESOLVED. DID NOT SEEK CARE FOR THAT. PCP: DR. TRUDY BOTELLO, [facility] GI: DR. OWUSU, [facility] Allergies and Home Medications Allergies Coded Allergies: propoxyphene napsylate (Unverified Allergy, Severe, SEIZURES, 11/14/13) Home Medications Ciprofloxacin HCl 500 Mg Tablet, 500 MG PO BID, #14 Prescribed by: VIVIAAN GLOVER on 02/09/17 1242 Dicyclomine HCl 20 Mg Tablet, 20 MG PO Q6H, #20 Prescribed by: ANGELA NGUYỄN on 03/27/172 Hydrocodone/Acetaminophen 1 Each Tablet, 1 EACH PO Q6H PRN for PAIN-MODERATE TO SEVERE, #10 do not fill unless antibiotics are also filled. Prescribed by: VIVIANA GLOVER on 02/09/17 1242 Hydrocodone/Ibuprofen 1 Each Tablet, 1 EACH PO PRN, (Reported) Hyoscyamine Sulfate 0.125 Mg Tab.subl, 1-2 TAB SL Q4H, #15 Prescribed by: ANGELA NGUYỄN on 03/27/172121 Lactobacillus Acidophilus 1 Each Capsule, 2 EACH PO QID, #80 Prescribed by: ANGELA NGUYỄN on 09/02/16 1110 Metronidazole 500 Mg Tablet, 500 MG PO BID, #20 Prescribed by: SUNNI GONZALEZ on 08/22/15 1651 Metronidazole 500 Mg Tablet, 500 MG PO QID, #40 Prescribed by: ANGELA NGUYỄN on 09/02/16 1110 Metronidazole 500 Mg Tablet, 500 MG PO TID, #15 Prescribed by: VIVIANA GLOVER on 02/09/17 1242 Prednisone 20 Mg Tab, 40 MG PO BID, #10 Prescribed by: SUNNI GONZALEZ on 08/22/15 1651 Prednisone 5 Mg Tablet, 5 MG PO UD, #78 12 PILLS DAY 1, THEN DECREASE BY 1 PILL A DAY UNTIL GONE Prescribed by: ANGELA NGUYỄN on 09/02/16 1110 Prednisone 5 Mg Tablet, 5 MG PO UD, #55 Take 50 mg on day 1, then reduce by 1 tablet daily until gone Prescribed by: VIVIANA GLOVER on 02/09/17 1242 Sucralfate 1 Gm Tablet, 1 GM PO QIDACHS, #60 Prescribed by: ANGELA NGUYỄN on 03/27/172121 Constitutional: no symptoms reported, No chills, No diaphoresis, No fever EENTM: see HPI, no symptoms reported Respiratory: no symptoms reported Cardiovascular: no symptoms reported Gastrointestinal: see HPI, abdominal pain, diarrhea, loss of appetite, nausea, vomiting Genitourinary: see HPI, decreased output Musculoskeletal: see HPI (BODY ACHES) Skin: no symptoms reported Psychiatric/Neurological: No Symptoms Reported Hematologic/Lymphatic: No Symptoms Reported Immunological/Allergic: see HPI Past Jxivxdx-Fppxgi-Xgpbna Hx Patient Social History Alcohol Use: Past History (HISTORY OF ABUSE, DENIES USE FOR A FEW YEARS, PER PT ON 03/27/17) Alcohol Beverage of Choice: Beer Recreational Drug Use: Yes (+ IV METH, DENIES USE X 3 YEARS, PER PT ON . THC USE) Drug of Choice: +IV METH, THC Smoking Status: Current Everyday Smoker (2 PPD) Type Used: Cigarettes (2 PPD) Recent Foreign Travel: No Contact w/Someone Who Travel: No Recent Infectious Disease Expo: No Recent Hopitalizations: No Seasonal Allergies Seasonal Allergies: No Surgeries History of Surgeries: Yes (COLONOSCOPIES) Surgeries: Vasectomy Respiratory History of Respiratory Disorde: No Cardiovascular History of Cardiac Disorders: No Neurological History of Neurological Disord: No Reproductive System Hx Reproductive Disorders: No Genitourinary History of Genitourinary Disor: Yes Genitourinary Disorders: Kidney Stones Gastrointestinal History of Gastrointestinal Di: Yes Gastrointestinal Disorders: Crohns Disease Musculoskeletal History of Musculoskeletal Dis: Yes (CHRONIC NECK AND BACK PAIN ) Musculoskeletal Disorders: Chronic Back Pain Endocrine History of Endocrine Disorders: No HEENT History of HEENT Disorders: No Cancer History of Cancer: No Psychosocial History of Psychiatric Problem: No Integumentary History of Skin or Integumenta: No Blood Transfusions History of Blood Disorders: No Physical Exam Vital Signs Vital Signs - First Documented 03/27/17 03/27/17 18:50 21:40 Temp 96.4 Pulse 104 Resp 18 B/P (MAP) 113/84 (94) Pulse Ox 97 O2 Delivery Room Air Capillary Refill : Less Than 3 Seconds General Appearance: No Apparent Distress, WD/WN, Other (CONSTANT MOUTH/LOWER JAW MOVEMENTS. 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 Skin: Normal Color, Warm/Dry, Tattoos/Piercings (EXTENSIVE TATTOOS) Progress/Results/Core Measures Suspected Sepsis Recent Fever Within 48 Hours: No Infection Criteria Present: None New/Unexplained Altered Menta: No Sepsis Screen: No Definite Risk Sepsis Diagnosis: SIRS Temperature:96.4 Pulse: 104 Respiratory Rate: 18 Laboratory Tests 03/27/17 20:21: White Blood Count 9.6 Blood Pressure 113 /84 Mean: 94 Laboratory Tests 03/27/17 20:21: Creatinine 1.10, Platelet Count 291, Total Bilirubin 0.4 Results/Orders Lab Results Laboratory Tests Test 03/27/17 20:21 Range/Units White Blood Count 9.6 4.3-11.0 10^3/uL Red Blood Count 4.66 4.35-5.85 10^6/uL Hemoglobin 14.9 13.3-17.7 G/DL Hematocrit 42 40-54 % Mean Corpuscular Volume 90 80-99 FL Mean Corpuscular Hemoglobin 32 25-34 PG Mean Corpuscular Hemoglobin Concent 36 32-36 G/DL Red Cell Distribution Width 13.0 10.0-14.5 % Platelet Count 291 130-400 10^3/uL Mean Platelet Volume 9.6 7.4-10.4 FL Neutrophils (%) (Auto) 64 42-75 % Lymphocytes (%) (Auto) 28 12-44 % Monocytes (%) (Auto) 6 0-12 % Eosinophils (%) (Auto) 2 0-10 % Basophils (%) (Auto) 0 0-10 % Neutrophils # (Auto) 6.1 1.8-7.8 X 10^3 Lymphocytes # (Auto) 2.7 1.0-4.0 X 10^3 Monocytes # (Auto) 0.6 0.0-1.0 X 10^3 Eosinophils # (Auto) 0.2 0.0-0.3 10^3/uL Basophils # (Auto) 0.0 0.0-0.1 10^3/uL Urine Color YELLOW Urine Clarity CLEAR Urine pH 6 5-9 Urine Specific [place] 1.025 H 1.016-1.022 Urine Protein NEGATIVE NEGATIVE Urine Glucose (UA) NEGATIVE NEGATIVE Urine Ketones NEGATIVE NEGATIVE Urine Nitrite NEGATIVE NEGATIVE Urine Bilirubin NEGATIVE NEGATIVE Urine Urobilinogen NORMAL NORMAL MG/DL Urine Leukocyte Esterase 1+ H NEGATIVE Urine RBC (Auto) NEGATIVE NEGATIVE Urine RBC 0-2 /HPF Urine WBC 2-5 /HPF Urine Crystals NONE /LPF Urine Bacteria NEGATIVE /HPF Urine Casts NONE /LPF Urine Mucus SMALL H /LPF Urine Culture Indicated NO Sodium Level 139 135-145 MMOL/L Potassium Level 3.9 3.6-5.0 MMOL/L Chloride Level 104 98-107 MMOL/L Carbon Dioxide Level 23 21-32 MMOL/L Anion Gap 12 5-14 MMOL/L Blood Urea Nitrogen 15 7-18 MG/DL Creatinine 1.10 0.60-1.30 MG/DL Estimat Glomerular Filtration Rate > 60 BUN/Creatinine Ratio 14 Glucose Level 116 H 70-105 MG/DL Calcium Level 9.2 8.5-10.1 MG/DL Magnesium Level 2.1 1.8-2.4 MG/DL Total Bilirubin 0.4 0.1-1.0 MG/DL Aspartate Amino Transf (AST/SGOT) 39 H 5-34 U/L Alanine Aminotransferase (ALT/SGPT) 68 H 0-55 U/L Alkaline Phosphatase 149 H 40-136 U/L Total Protein 7.1 6.4-8.2 GM/DL Albumin 3.9 3.2-4.5 GM/DL Amylase Level 68 25-125 U/L Lipase 45 8-78 U/L Urine Opiates Screen POSITIVE H NEGATIVE Urine Oxycodone Screen NEGATIVE NEGATIVE Urine Methadone Screen NEGATIVE NEGATIVE Urine Propoxyphene Screen NEGATIVE NEGATIVE Urine Barbiturates Screen NEGATIVE NEGATIVE Ur Tricyclic Antidepressants Screen NEGATIVE NEGATIVE Urine Phencyclidine Screen NEGATIVE NEGATIVE Urine Amphetamines Screen NEGATIVE NEGATIVE Urine Methamphetamines Screen NEGATIVE NEGATIVE Urine Benzodiazepines Screen NEGATIVE NEGATIVE Urine Cocaine Screen NEGATIVE NEGATIVE Urine Cannabinoids Screen POSITIVE H NEGATIVE Serum Alcohol < 10 <10 MG/DL Micro Results Microbiology 03/27/17 Influenza Types A,B Antigen (NIDA) - Final, Complete My Orders Orders - ANGELA NGUYỄN DO Influenza A And B Antigens (03/27/17 19:42) Saline Lock/Iv-Start (03/27/17 20:02) Alcohol (03/27/17 20:02) Amylase (03/27/17 20:02) Cbc With Automated Diff (03/27/17 20:02) Comprehensive Metabolic Panel (03/27/17 20:02) Drug Screen Stat (Urine) (03/27/17 20:02) Lipase (03/27/17 20:02) Magnesium (03/27/17 20:02) Ua Culture If Indicated (03/27/17 20:02) Saline Lock/Iv-Start (03/27/17 20:02) Lactated Ringers (Lr 1000 Ml Iv Solution (03/27/17 20:02) Ondansetron Injection (Zofran Injectio (03/27/17 20:15) Pantoprazole Injection (Protonix Injecti (03/27/17 20:02) Rx-Dicyclomine Capsule (Rx-Bentyl Capsul (03/27/17 21:18) Rx-Hyoscyamine Tab (Rx-Levsin Sl) (03/27/17 21:18) Medications Given in ED Vital Signs/I&O Intake and Output 03/28/17 00:00 Intake Total 1000 ml Balance 1000 ml Capillary Refill : Less Than 3 Seconds Blood Pressure Mean: 94 Progress Note : Progress Note FEELS MUCH BETTER AT DISMISSAL NO VOMITING OR DIARRHEA DURING ER STAY Departure Impression Impression: Primary Impression: Nausea vomiting and diarrhea Additional Impressions: Abdominal cramping Crohns disease POSSIBLE SIDE EFFECT OF METHOTREXATE CHRONIC MARIJUANA USE Disposition: 01 HOME, SELF-CARE Condition: Improved Departure-Patient Inst. Referrals: TRUDY BOTELLO MD (PCP/Family) Primary Care Physician Patient Instructions: Adverse Drug Reactions, Adult (DC), Crohn's Disease (DC) , Nausea and Vomiting, Adult (DC) Add. Discharge Instructions: CONTINUE YOUR HOME MEDICATIONS PRESCRIBED CLEAR LIQUIDS TODAY, THEN TOMORROW ADD BRATS DIET TO CLEAR LIQUIDS FOLLOW UP WITH YOUR MAXILLOFACIAL PATHOLOGY THIS WEEK FOR FURTHER CARE All discharge instructions reviewed with patient and/or family. Voiced understanding. Scripts Dicyclomine HCl (Dicyclomine HCl) 20 Mg Tablet 20 MG PO Q6H for Abdominal Pain, #20 TAB Prov: ANGELA NGUYỄN DO 03/27/17 Sucralfate (Carafate) 1 Gm Tablet 1 GM PO QIDACHS, #60 TAB Prov: ANGELA NGUYỄN DO 03/27/17 Hyoscyamine Sulfate (Levsin-Sl) 0.125 Mg Tab.subl 1-2 TAB SL Q4H for Abdominal Pain, #15 TAB Prov: ANGELA NGUYỄN DO 03/27/17 ANGELA NGUYỄN DO Mar 27, 2017 20:03
[2017-03-27] MEDS ORDERED: ONDANSETRON 4 MG/2 ML (SDV) Z0FRAN IVP ONE (20:15)
[2017-03-27 20:29] LABS: BASOPHILS % (AUTO) 0 % (0-10); EOSINOPHILS # (AUTO) 0.2 10^3/uL (0.0-0.3); EOSINOPHILS % (AUTO) 2 % (0-10); HEMATOCRIT 42 % (40-54); HEMOGLOBIN 14.9 G/DL (13.3-17.7); LYMPHOCYTES # (AUTO) 2.7 X 10^3 (1.0-4.0); LYMPHOCYTES % (AUTO) 28 % (12-44); MEAN CORPUSCULAR HEMOGLOBIN 32 PG (25-34); MEAN CORPUSCULAR HGB CONC 36 G/DL (32-36); MEAN CORPUSCULAR VOLUME 90 FL (80-99); MEAN PLATELET VOLUME 9.6 FL (7.4-10.4); MONOCYTES # (AUTO) 0.6 X 10^3 (0.0-1.0); MONOCYTES % (AUTO) 6 % (0-12); NEUTROPHILS # (AUTO) 6.1 X 10^3 (1.8-7.8); NEUTROPHILS % (AUTO) 64 % (42-75); PLATELET COUNT 291 10^3/uL (130-400); RED BLOOD COUNT 4.66 10^6/uL (4.35-5.85); WHITE BLOOD COUNT 9.6 10^3/uL (4.3-11.0)
[2017-03-27 20:32] LABS: BILIRUBIN,URINE NEGATIVE (NEGATIVE); CLARITY,URINE CLEAR; COLOR,URINE YELLOW; GLUCOSE, URINE (UA) NEGATIVE (NEGATIVE); KETONES,URINE NEGATIVE (NEGATIVE); LEUKOCYTE ESTERASE ,URINE 1+ (NEGATIVE); NITRITE,URINE NEGATIVE (NEGATIVE); PH,URINE 6 (5-9); PROTEIN,URINE NEGATIVE (NEGATIVE); UROBILINOGEN,URINE NORMAL (NORMAL)
[2017-03-27 20:45] LABS: BENZODIAZEPINES SCREEN URINE NEGATIVE (NEGATIVE)
[2017-03-27 20:46] LABS: AMPHETAMINE SCREEN, URINE NEGATIVE (NEGATIVE); BARBITURATE SCREEN URINE NEGATIVE (NEGATIVE); CANNABINOID SCREEN, URINE POSITIVE (NEGATIVE); COCAINE SCREEN URINE NEGATIVE (NEGATIVE); METHADONE STAT NEGATIVE (NEGATIVE); METHAMPHETAMINE SCREEN URINE S NEGATIVE (NEGATIVE); OPIATE SCREEN URINE POSITIVE (NEGATIVE); OXYCODONE STAT NEGATIVE (NEGATIVE); PROPOXYPHENE STAT NEGATIVE (NEGATIVE); TRICYCLIC ANTIDEPRESSANTS SCRE NEGATIVE (NEGATIVE)
[2017-03-27 20:52] LABS: ALANINE AMINOTRANSFERASE 68 U/L (0-55); ALBUMIN 3.9 GM/DL (3.2-4.5); ALKALINE PHOSPHATASE 149 U/L (40-136); AMYLASE 68 U/L (25-125); BILIRUBIN,TOTAL 0.4 MG/DL (0.1-1.0); BUN/CREATININE RATIO 14; CALCIUM 9.2 MG/DL (8.5-10.1); CARBON DIOXIDE 23 MMOL/L (21-32); CHLORIDE 104 MMOL/L (98-107); GFR ESTIMATED > 60; GLUCOSE 116 MG/DL (70-105); LIPASE 45 U/L (8-78); MAGNESIUM 2.1 MG/DL (1.8-2.4); POTASSIUM 3.9 MMOL/L (3.6-5.0); SODIUM 139 MMOL/L (135-145); TOTAL PROTEIN 7.1 GM/DL (6.4-8.2)
[2017-03-27 21:02] LABS: BACTERIA,URINE NEGATIVE /HPF; RBC,URINE 0-2 /HPF
[2017-03-27] MEDS ORDERED: RX-HYOSCYAMINE 0.125 MG SL (LEVSIN) PPK#6 SL STA (21:18)
[2017-03-27] MEDS ORDERED: RX-DICYCLOMINE 10 MG (BENTYL) CAP PPK#4 PO STA (21:18)
[2017-03-27] MEDS ORDERED: HYOS0.1283 SL (21:22)
[2017-03-27] MEDS ORDERED: DICY20TA10 PO (21:22)
[2017-03-27] MEDS ORDERED: SUCR1TAB36 PO (21:22)
[2017-03-27 21:40] VITALS: BP 118/86
== END 2017-03-27 21:36 | disposition home or self-care (01) ==
LOC: EDUNIT# 18:44 → ER 18:46
DX: K50.90 Crohn's disease, unspecified, without complications (principal); F12.10 Cannabis abuse, uncomplicated; F15.10 Other stimulant abuse, uncomplicated; F17.210 Nicotine dependence, cigarettes, uncomplicated; Z87.442 Personal history of urinary calculi; Z87.19 Personal history of other diseases of the digestive system; Z98.52 Vasectomy status; Z88.8 Allergy status to other drugs, medicaments and biological substances; Z79.52 Long term (current) use of systemic steroids
CPT/HCPCS: 36415; 80053; 80306; 80320; 81000; 82150; 83690; 83735; 85025; 87804; 96374; 96375

== ENCOUNTER → 2017-06-27 | Outpatient (CLI) | payer MEDICAID ==
[~2017-06-27] MED LIST changes: +ADAL40PE; +CEPH500T PO; +CETI10TA17; +CIPR500S2 PO; +DICY20TA10 PO; +FLUT9.9S NS; +HYOS0.1283 SL; +PHEN-640 PO; +SUCR1TAB36 PO; +SULF1TAB35 PO; +TAMS0.4C2; +TAMS0.4C2 PO
--- NOTE | 2017-06-27 12:55 | Diagnostic Imaging Report ---
INDICATION: Ureteral stone. COMPARISON: 06/24/2017. FINDINGS: The 5 mm stone positioned in the expected region of right UVJ is unchanged since prior radiograph. Multiple nonobstructing bilateral renal stones are unchanged. No new renal or ureteral stones are identified. Normal regional skeleton. IMPRESSION: The right UVJ stone appears to be in stable position since 06/24/2017 radiograph. Dictated by: Dictated on workstation # [id number]
== END ==
LOC: RAD 09:46
PROVIDERS: ATTEND Nurse Practitioner Family
DX: N20.1 Calculus of ureter (principal)
CPT/HCPCS: 74018

== ENCOUNTER 2017-06-28 06:47 | Day surgery (SDC) | payer MEDICAID ==
[~2017-06-28] VITALS: Ht 167.6 cm; Wt 81.7 kg
[~2017-06-28 06:47] MED LIST changes: -CEPH500T PO; -CIPR500S2 PO; -FLUT9.9S NS; -PHEN-640 PO
--- NOTE | 2017-06-28 06:56 | Progress Note-Pre Operative ---
Pre-Operative Progress Note H&P Reviewed The H&P was reviewed, patient examined and no changes noted. Date Seen by Provider: June 28, 2017 Time Seen by Provider: 06:56 Date H&P Reviewed: June 28, 2017 Time H&P Reviewed: 06:56 Pre-Operative Diagnosis: RT DISTAL URETERAL STONE MAURO FRY MD June 28, 2017 6:56 am
[2017-06-28 07:15] VITALS: BP 105/75
[2017-06-28] MEDS ORDERED: cefTRIAXone 1 GM (ROCEPHIN) VIAL ONE (07:26)
[2017-06-28] MEDS ORDERED: NS (IVPB) 50 ML ONE (07:26)
[2017-06-28] MEDS ORDERED: cefTRIAXone 1 GM/NS 50 ML IVPB IV ONE ×2 (08:00)
[2017-06-28] MEDS ORDERED: CATHETER FLUSH 10 ML SYR IV PRN (08:00)
[2017-06-28] MEDS ORDERED: FLUT9.9S NS (08:02)
[2017-06-28] MEDS ORDERED: ROCURONIUM 10 MG/ML 5 ML SYRINGE IV ONE (08:37)
[2017-06-28] MEDS ORDERED: LIDOCAINE PF 2% 5 ML (XYLOCAINE) VIAL ONE (08:37)
[2017-06-28] MEDS ORDERED: proPOfol 200 MG/20 ML (DIPRIVAN) VIAL IV ONE (08:37)
[2017-06-28] MEDS ORDERED: ONDANSETRON 4 MG/2 ML (SDV) Z0FRAN ONE (08:37)
[2017-06-28] MEDS ORDERED: MIDAZOLAM 2 MG/2 ML (VERSED) VIAL ONE (08:38)
[2017-06-28] MEDS ORDERED: fentaNYL INJECTION 100 MCG/2 ML AMP ONE (08:38)
[2017-06-28] MEDS ORDERED: SEVOFLURANE (ULTANE) 15 ML INHAL SOLN ONE ×3 (08:40→09:16)
--- NOTE | 2017-06-28 08:47 | Diagnostic Imaging Report ---
Clinical indication: Preop stone basket bladder area. Exam: KUB x-ray. Comparison: KUB x-ray dated 06/27/2017. CT scan of the abdomen and pelvis dated 06/20/2017. Findings and impression: 1: Again seen bilateral nephrolithiasis with multiple small stones overlying both renal shadows. 2: Stable angulated calcification overlying the right of midline aspect of the bladder which measures roughly 6 mm. This likely correlates to the stone seen in the distal right ureter/UVJ on the comparison CT scan. 3: There is also a more rounded 3 mm calcification seen inferiorly and lateral to this angulated stone. This likely represents a phlebolith. 4: Nonobstructive bowel gas pattern. Dictated by: Dictated on workstation # [id number]
[2017-06-28] MEDS ORDERED: LACTATED RINGERS 1,000 ML IV PRN (09:24)
[2017-06-28] MEDS ORDERED: LACTATED RINGERS 1,000 ML IV SCH (09:30)
--- NOTE | 2017-06-28 09:30 | Progress Note-Post Operative ---
Post-Operative Progess Note Surgeon (s)/Toy Maker (s) Surgeon MAURO FRY MD Toy Maker: N/A Pre-Operative Diagnosis RT DISTAL URETERAL STONE Post-Operative Diagnosis SAME AND MEATAL STENOSIS Procedure & Operative Findings Date of Procedure 06/28/17 Procedure Performed/Findings UD, RT URETEROSCOPY WITH STONE LITHOTRIPSY Anesthesia Type GENERAL Estimated Blood Loss Estimated blood loss (mL): NEGLIGIBLE Specimens/Packing Specimens Removed N/A Packing: N/A MAURO FRY MD June 28, 2017 9:30 am
--- NOTE | 2017-06-28 09:31 | Discharge Inst-Urology ---
Discharge Inst-Urology Discharge Medications New, Converted, or Re-newed RX: RX on Chart Patient Instructions/Follow Up Plan Please make appointment to been seen in office in 2 weeks. Increase oral fluids for 48 hours and then as needed. Diet and Activity as tolerated. If questions or concerns contact your physician Or seek help at emergency department. MAURO FRY MD June 28, 2017 9:31 am
[2017-06-28] MEDS ORDERED: morphine INJ 10 MG/ML 1ML (SYR OR VIAL) IVP PRN (09:45)
[2017-06-28] MEDS ORDERED: PROMETHAZINE INJ 25 MG/ML (PHENERGAN) AMP IVP PRN (09:45)
[2017-06-28] MEDS ORDERED: ONDANSETRON 4 MG/2 ML (SDV) Z0FRAN IVP PRN (09:45)
[2017-06-28] MEDS ORDERED: HYDROmorphone 1 MG/ML (DILAUDID) 1 ML SYRINGE IV PRN (09:45)
[2017-06-28 10:20] VITALS: BP 122/81
[2017-06-28] MEDS ORDERED: HYDROcodone/APAP 10 MG/325 MG (LORTAB) TAB PO ONE ×2 (10:29→10:45)
[2017-06-28] MEDS ORDERED: PHENAZOPYRIDINE 100 MG (PYRIDIUM) TABLET ONE (10:29)
[2017-06-28] MEDS ORDERED: PHENAZOPYRIDINE 100 MG (PYRIDIUM) TABLET PO ONE (10:45)
[2017-06-28 10:50] VITALS: BP 121/76
[2017-06-28] MEDS ORDERED: CIPR500S2 PO (11:04)
[2017-06-28] MEDS ORDERED: PHEN-640 PO (11:04)
[2017-06-28 11:15] VITALS: BP 121/76
--- NOTE | 2017-06-28 13:15 | Anesthesia-General Post-Op ---
General Patient Condition Mental Status/LOC: Same as Preop Cardiovascular: Satisfactory Nausea/Vomiting: Absent Respiratory: Satisfactory Pain: Controlled Complications: Absent Post Op Complications Complications None Follow Up Care/Instructions Patient Instructions None needed. Anesthesia/Patient Condition Patient Condition Patient is doing well, no complaints, stable vital signs, no apparent adverse anesthesia problems. No complications reported per nursing. TRIXIE GOMES CRNA June 28, 2017 13:15
--- NOTE | 2017-06-28 14:50 | OPERATIVE REPORT ---
DATE OF SERVICE: 06/28/2017 PREOPERATIVE DIAGNOSES: 1. Right distal ureteral stone. 2. Bilateral renal stones. 3. Meatal stenosis. POSTOPERATIVE DIAGNOSES: 1. Right distal ureteral stone. 2. Bilateral renal stones. 3. Meatal stenosis. OPERATION: Urethral dilatation, right ureteroscopy with stone lithotripsy. SURGEON: Dr. Fry. ANESTHESIA: General. COMPLICATIONS: None. DESCRIPTION OF PROCEDURE: Under satisfactory general anesthesia, the patient in lithotomy position, genitalia were prepped and draped in the usual sterile fashion. Noted again the meatal stenosis which was noted in the office, it was dilated with Rand sound to #28 [place] easily in order to accommodate a 25-[place] cystoscope. The anterior urethra was normal. The prostate was not enlarged. Bladder neck was open. The bladder was completely normal except that the intramural portion was kind of swollen and edematous. Using the foroblique lens, I dilated the right ureteral orifice intramural portion to the level of the stone guided fluoroscopically to accommodate a 6.9 [place] semi-rigid ureteroscope. The stone was visualized and using a power of 100 with a frequency of 5 in order not to loose the stone proximally, I completely fragmented the stone. Then, I increased further fragment the fragments into smaller ones easy to pass. I did not see any reason for stent. I went more proximally in the ureter. There were no fragments distally. Most of these fragments flew into the bladder. The ureteroscope was removed. The cystoscope was reintroduced again to empty the bladder. The patient tolerated the procedure and anesthesia well and was sent to recovery room in stable condition. PLAN: We did order a renal stone profile. The office will come back in 2 weeks. We will plan a stone risk profile for stone prevention. We will give him also the stone instruction sheet for the diet and fluid consumption. Job ID: [id number] DocumentID: [id number] Dictated Date: 06/28/2017 09:34:26 Truck Railroad And Bus Motor Mechanic Date: 06/28/2017 14:50:20 Dictated By: MAURO FRY MD
[2017-07-02] MEDS ORDERED: CEPH500T PO ×3 (23:30→23:54)
== END 2017-06-28 11:25 | disposition home or self-care (01) ==
LOC: SDC 06:47
PROVIDERS: ATTEND Urology
DX: N20.2 Calculus of kidney with calculus of ureter (principal); N35.9 Urethral stricture, unspecified
CPT/HCPCS: 74018; 87081

== ENCOUNTER 2017-08-30 05:36 | Outpatient (CLI) | payer MEDICAID ==
[~2017-08-30] VITALS: Ht 167.6 cm; Wt 83.9 kg
[~2017-08-30 05:36] MED LIST changes: -ADAL40PE; +ADAL40PE IM; +CEPH500T PO; -CETI10TA17; +CETI10TA17 PO; +CIPR500S2 PO; +FLUT9.9S NS; +PHEN-640 PO
[2017-08-30] MEDS ORDERED: HYDR-3820 PO (09:39)
[2017-08-31] MEDS ORDERED: NICO-588 TD (08:45)
[2017-08-31] MEDS ORDERED: TAMS0.4C98 PO (12:04)
[2017-08-31] MEDS ORDERED: NITR-65 PO (12:04)
[2017-08-31] MEDS ORDERED: ACHD5005 PO (12:04)
== END 2017-08-30 09:46 ==
LOC: PREOP 05:36
PROVIDERS: ATTEND Urology
DX: Z01.818 Encounter for other preprocedural examination (principal)

== ENCOUNTER 2017-08-31 06:57 | Day surgery (SDC) | payer MEDICAID ==
[~2017-08-31] VITALS: Ht 167.6 cm; Wt 83.9 kg
[~2017-08-31 06:57] MED LIST changes: +HYDR-3820 PO
[2017-08-31 07:00] VITALS: BP 114/76
[2017-08-31] MEDS ORDERED: LACTATED RINGERS 1,000 ML IV PRN (07:13)
[2017-08-31] MEDS ORDERED: cefTRIAXone INJECTION 1,000 MG in NS (IVPB) 50 ML IV ONE (07:15)
--- NOTE | 2017-08-31 07:15 | Progress Note-Pre Operative ---
Pre-Operative Progress Note H&P Reviewed The H&P was reviewed, patient examined and no changes noted. Date Seen by Provider: Aug 31, 2017 Time Seen by Provider: 07:15 Date H&P Reviewed: Aug 31, 2017 Time H&P Reviewed: 07:15 Pre-Operative Diagnosis: BILATERAL RENAL STONES MAURO FRY MD Aug 31, 2017 7:15 am
[2017-08-31 07:28] LABS: AMPHETAMINE SCREEN, URINE NEGATIVE (NEGATIVE); BARBITURATE SCREEN URINE NEGATIVE (NEGATIVE); BENZODIAZEPINES SCREEN URINE NEGATIVE (NEGATIVE); CANNABINOID SCREEN, URINE POSITIVE (NEGATIVE); COCAINE SCREEN URINE NEGATIVE (NEGATIVE); METHADONE STAT NEGATIVE (NEGATIVE); METHAMPHETAMINE SCREEN URINE S NEGATIVE (NEGATIVE); OPIATE SCREEN URINE POSITIVE (NEGATIVE); OXYCODONE STAT NEGATIVE (NEGATIVE); PROPOXYPHENE STAT NEGATIVE (NEGATIVE); TRICYCLIC ANTIDEPRESSANTS SCRE NEGATIVE (NEGATIVE)
--- NOTE | 2017-08-31 07:48 | Diagnostic Imaging Report ---
INDICATION: Bilateral renal calculi. COMPARISON: 06/28/2017. FINDINGS: Multiple small sub-5 mm calculi are again noted scattered over the mid and lower pole calyces of both kidneys. This is more severe on the left. The previous 6 mm calculus in the distal right ureter has passed. Phleboliths remain present on the right. IMPRESSION: 1. Bilateral nephrolithiasis. 2. No evidence of calculi within the ureters on today's exam. Dictated by: Dictated on workstation # [id number]
--- NOTE | 2017-08-31 07:55 | Discharge Inst-Urology ---
Discharge Inst-Urology Discharge Medications New, Converted, or Re-newed RX: RX on Chart Patient Instructions/Follow Up Plan Please make appointment to been seen in office Wednesday 08/23. KUB prior to it KUB on way home Post ESWL instructions Increase oral fluids for 48 hours and then as needed. Diet and Activity as tolerated. If questions or concerns contact your physician Or seek help at emergency department. MAURO FRY MD Aug 31, 2017 7:55 am
[2017-08-31] MEDS ORDERED: DEXAMETHASONE 10 MG/ML (DECADRON) 1 ML VIAL ONE (08:29)
[2017-08-31] MEDS ORDERED: MIDAZOLAM 2 MG/2 ML (VERSED) VIAL ONE (08:29)
[2017-08-31] MEDS ORDERED: LIDOCAINE PF 2% 5 ML (XYLOCAINE) VIAL ONE (08:29)
[2017-08-31] MEDS ORDERED: fentaNYL INJECTION 100 MCG/2 ML AMP ONE (08:29)
[2017-08-31] MEDS ORDERED: ONDANSETRON 4 MG/2 ML (SDV) Z0FRAN ONE (08:29)
[2017-08-31] MEDS ORDERED: PROPOFOL INJECTION 50 ML IV ONE (08:29)
[2017-08-31] MEDS ORDERED: FUROSEMIDE 40 MG/4 ML INJ (LASIX) ONE (08:30)
[2017-08-31] MEDS ORDERED: KETOROLAC 30 MG/ML VIAL ONE (08:30)
[2017-08-31] MEDS ORDERED: NICO-588 TD (08:45)
[2017-08-31] MEDS ORDERED: SEVOFLURANE (ULTANE) 15 ML INHAL SOLN ONE ×3 (09:48→10:25)
--- NOTE | 2017-08-31 09:59 | Progress Note-Post Operative ---
Post-Operative Progess Note Surgeon (s)/Equal Opportunity Director (s) Surgeon MAURO FRY MD Equal Opportunity Director: N/A Pre-Operative Diagnosis BILATERAL RENAL STONES Post-Operative Diagnosis SAME Procedure & Operative Findings Date of Procedure 08/31/17 Procedure Performed/Findings LT ESWL Anesthesia Type GENERAL Estimated Blood Loss Estimated blood loss (mL): N/A Specimens/Packing Specimens Removed N/A Packing: N/A MAURO FRY MD Aug 31, 2017 9:59 am
[2017-08-31] MEDS ORDERED: MEPERIDINE (DEMEROL) INJ 50 MG/ML IVP PRN (11:00)
[2017-08-31] MEDS ORDERED: morphine INJ 10 MG/ML 1ML (SYR OR VIAL) IVP PRN (11:00)
[2017-08-31] MEDS ORDERED: ONDANSETRON 4 MG/2 ML (SDV) Z0FRAN IVP PRN (11:00)
[2017-08-31 11:40] VITALS: BP 134/95
[2017-08-31] MEDS ORDERED: HYDROcodone/APAP 5 MG/325 MG (LORTAB) TAB PO PRN (12:00)
[2017-08-31] MEDS ORDERED: TAMS0.4C98 PO (12:04)
[2017-08-31] MEDS ORDERED: ACHD5005 PO (12:04)
[2017-08-31] MEDS ORDERED: NITR-65 PO (12:04)
[2017-08-31] MEDS ORDERED: HYDROcodone/APAP 5 MG/325 MG (LORTAB) TAB ONE (12:05)
[2017-08-31 12:10] VITALS: BP 112/81
[2017-08-31 12:40] VITALS: BP 122/79
--- NOTE | 2017-08-31 13:18 | Diagnostic Imaging Report ---
INDICATION: Status post lithotripsy. COMPARISON: 08/31/2017 at 7:46 a.m. FINDINGS AND IMPRESSION: 1. Allowing for overlying bowel gas, the bilateral renal calculi are no longer visualized. Dictated by: Dictated on workstation # [id number]
--- NOTE | 2017-08-31 13:25 | Anesthesia-General Post-Op ---
General Patient Condition Mental Status/LOC: Same as Preop Cardiovascular: Satisfactory Nausea/Vomiting: Absent Respiratory: Satisfactory Pain: Controlled Complications: Absent Post Op Complications Complications None Follow Up Care/Instructions Patient Instructions None needed. Anesthesia/Patient Condition Patient Condition Patient is doing well, no complaints, stable vital signs, no apparent adverse anesthesia problems. No complications reported per nursing. SOPHIA OBRIEN CRNA Aug 31, 2017 13:25
--- NOTE | 2017-09-27 08:23 | OPERATIVE REPORT ---
DATE OF SERVICE: 08/30/2017 PREOPERATIVE DIAGNOSIS: Bilateral renal stones. POSTOPERATIVE DIAGNOSIS: Bilateral renal stones. OPERATION PERFORMED: Bilateral ESWL. SURGEON: Vernon Fry MD ANESTHESIA: General. COMPLICATIONS: None. DESCRIPTION OF PROCEDURE: Under satisfactory general anesthesia, the patient supine on the ESWL table, we first addressed the left kidney, which has the bigger stone. The stone was localized and shocks were delivered at kV of 5. A total of 2500 shocks completely fragmented the stone. Then, we moved on the right side, localized the stone and repeated the same procedure. At this time, only 1500 shocks were enough to break the stone. The patient received 40 mg of Lasix and 30 mg of Toradol IV at the end of the procedure. He tolerated the procedure and anesthesia well and was sent to recovery room in stable condition. Job ID: [id number] DocumentID: [id number] Dictated Date: 08/31/2017 10:33:23 Risk Consultant Date: 08/31/2017 15:20:28 Dictated By: VERNON FRY MD <Dictated by VERNON FRY MD> <Electronically signed by VERNON FRY MD> 09/01/17 1048
== END 2017-08-31 12:40 | disposition home or self-care (01) ==
LOC: SDC 06:57
PROVIDERS: ATTEND Urology
DX: N20.0 Calculus of kidney (principal); F17.210 Nicotine dependence, cigarettes, uncomplicated; J30.9 Allergic rhinitis, unspecified; F12.90 Cannabis use, unspecified, uncomplicated
CPT/HCPCS: 74018; 80306; 87081

== ENCOUNTER → 2017-09-12 | Outpatient (CLI) | payer MEDICAID ==
[~2017-09-12] MED LIST changes: +ACHD5005 PO; +NICO-588 TD; +NITR-65 PO; +TAMS0.4C98 PO
--- NOTE | 2017-09-12 15:50 | Diagnostic Imaging Report ---
INDICATION: Followup bilateral kidney stones. TIME OF EXAM: 2:04 PM Comparison is made with prior exam from 08/31/2017. FINDINGS: There are some punctate densities overlying the lower poles of both kidneys, suggestive of calculi. There are some bowel contents overlying the renal shadows which does compromise the study. No definite calculi along the course of the ureters is seen. IMPRESSION: There appeared to be questionable renal calculi in lower poles bilaterally. No other abnormality is seen. Dictated by: Dictated on workstation # [id number]
== END ==
LOC: RAD 13:19
PROVIDERS: ATTEND Urology
DX: N20.0 Calculus of kidney (principal)
CPT/HCPCS: 74018

== ENCOUNTER → 2017-09-27 | Outpatient (CLI) | payer MEDICAID ==
--- NOTE | 2017-09-27 16:40 | Diagnostic Imaging Report ---
PROCEDURE: CT urinary tract, rule out kidney stone. TECHNIQUE: Multiple contiguous axial images were obtained through the abdomen and pelvis without the use of intravenous contrast. INDICATION: Bilateral flank pain, right greater. COMPARISON: Comparison is made with prior CT from 06/24/2017. FINDINGS: The lung bases are clear. No discrete liver mass is identified. The gallbladder is contracted. The pancreas and spleen are unremarkable. No adrenal mass is identified. Numerous punctate nonobstructing calculi identified in both kidneys. No definite ureteral dilatation or ureteral calculi are identified. The aorta is non-aneurysmal. The small and large bowel loops are normal caliber. There is no ascites. The bladder is unremarkable. The prostate is unremarkable. The bony structures are nonacute. IMPRESSION: Bilateral nonobstructing nephrolithiasis. No ureteral calculi or hydronephrosis is seen. No acute feature is identified. Dictated by: Dictated on workstation # [id number]
--- NOTE | 2017-09-27 17:08 | Diagnostic Imaging Report ---
INDICATION: Left flank pain. TIME OF EXAM: 4:22 p.m. COMPARISON: Correlation is made with prior study from 09/12/2017. FINDINGS: The bowel gas pattern is nonobstructive. There are multiple calcific densities overlying both kidneys consistent with calculi. No definite calculi along the course of the ureters are seen. IMPRESSION: Bilateral renal calculi. No other abnormality is detected. Dictated by: Dictated on workstation # [id number]
== END ==
LOC: RAD 15:46
PROVIDERS: ATTEND Urology
DX: N20.0 Calculus of kidney (principal)
CPT/HCPCS: 74018; 74176

== ENCOUNTER → 2017-10-21 | Outpatient (CLI) | payer SELFPAY ==
[~2017-10-21] MED LIST changes: +HYDR-4226 PO; -HYDR-757 PO
--- NOTE | 2017-10-21 16:21 | Diagnostic Imaging Report ---
Clinical indication: Patient with left flank pain. Patient has history of stones. Exam: KUB x-ray. Comparison: CT scan of the abdomen and pelvis without contrast and KUB x-ray dated 09/27/2017. Findings: Again seen small punctate areas of increased density overlying the bilateral renal shadow regions, with the left side more evident than right. These correlate to renal stones noted on the comparison CT scan. There are no interval stones seen along the path of the ureters or bladder. There is a nonobstructed bowel gas pattern. There is no evidence of abdominal free air. The visualized bones and extra abdominal soft tissues are unremarkable. Impression: Similar-appearing bilateral nephrolithiasis. Dictated by: Dictated on workstation # [id number]
--- NOTE | 2017-10-21 16:41 | Diagnostic Imaging Report ---
PROCEDURE: CT abdomen and pelvis with and without contrast. TECHNIQUE: Precontrast acquisitions were acquired through the abdomen and pelvis. Multiple contiguous axial images were obtained through the abdomen and pelvis after the administration of intravenous contrast. INDICATION: Left leg pain. History of kidney stones. History of Crohn's disease. COMPARISON: 09/27/2017. FINDINGS: Included portions of the lung bases are clear. CT ABDOMEN: There is somewhat abnormal thickened hyperenhancing appearance to the hepatic flexure of the colon. There is somewhat shaggy appearance to the serosal surface with combing of the colonic mesentery. There is also lipomatosis of the distal and terminal ileum. A haustral appearance to the colon is also noted. Findings likely relate to clinical history of Crohn's disease. There is no CT evidence of acute appendicitis. Small bowel loops are nondistended. The kidneys show multiple bilateral nonobstructive renal calculi. No ureteral calculus is seen on either side. Additionally, there is no hydroureteronephrosis or other evidence of obstruction. Small cyst is noted on the left. The spleen, pancreas, adrenal glands, and liver have an unremarkable CT appearance. There is area of subcapsular nodular hyperenhancement involving segment of the liver, which likely represents transient hepatic attenuation defect. There is no loculated fluid collection, free fluid, nor free air. No abnormal mesenteric or retroperitoneal adenopathy is seen. Bony structures show no acute abnormalities. CT PELVIS: Urinary bladder is grossly unremarkable. There is no loculated fluid collection, free fluid, nor free air within the pelvis. No abnormal lymph nodes are identified. Bony structures show no acute abnormalities. IMPRESSION: 1. Multiple bilateral nonobstructive renal calculi. 2. No ureteral calculi, hydroureteronephrosis, or other evidence of obstruction on either side. 3. Abnormal appearance to the distal ileum and colon. Again, findings are likely related to patient's clinical history of Crohn's disease. An area of colonic narrowing with colonic wall thickening and hyperenhancement at the hepatic flexure raises concern for potential acute inflammation. Dictated by: Dictated on workstation # [id number]
== END ==
LOC: RAD 14:19
PROVIDERS: ATTEND Urology
DX: N20.0 Calculus of kidney (principal); K56.699 Other intestinal obstruction unspecified as to partial versus complete obstruction; K63.89 Other specified diseases of intestine; Z87.19 Personal history of other diseases of the digestive system
CPT/HCPCS: 74018; 74178

== ENCOUNTER 2018-02-23 14:02 | Emergency (ER) | payer OTHER ==
[~2018-02-23] VITALS: Ht 167.6 cm; Wt 89.8 kg
--- OUTSIDE RECORDS SUMMARY | 2018-02-23 14:40 | XMS REPORT ---
Author Author ROBEL BOWLING Organization [facility] Address [address] [place] [address] Care Team Providers Care Utility Bag Assembler Name Role Phone ROBEL BOWLING Unavailable PROBLEMS Type Condition ICD9-CM Code KOS43-IO Code Onset Dates Condition Status SNOMED Code Problem Kidney stone N20.0 Active 97498980 ALLERGIES No Known Allergies ENCOUNTERS Encounter Location Date Diagnosis [address] [address] Sep, Ingrowing left great toenail L60.0 and Onychomycosis B35.1 [facility] [address] [place] [address] Aug, Ingrown toenail L60.0 [facility] [address] [place] [address] June, Seasonal allergic rhinitis, unspecified trigger J30.2 and Acute bacterial conjunctivitis of both eyes H10.33 [facility] [place] [id number] [place] [address] May, Hematuria, unspecified type R31.9 and Kidney stone N20.0 [facility] [address] [place] [address] 14 Dec, 2016 Body aches R52 and Upper respiratory infection, acute J06.9 [facility] [address] [address] 09 Dec, 2016 Acute bacterial conjunctivitis of right eye H10.31 [facility] [address] [place] [id number] [place] [address] 12 Nov, 2016 Encounter for immunization Z23 [facility] [address] [place] [id number] [id number] Nov, Dental examination Z01.20 [facility] [address] [id number] [id number] June, Dental examination V72.2 [facility] [address] [id number] [place] [address] 14 May, 2014 [facility] [address] [id number] [place] [address] May, [facility] [address] [id number] [place] [address] Oct, [facility] [address] [id number] [place] [address] Oct, [facility] [address] [id number] [place] [address] Aug, [facility] [address] [id number] [place] [address] Aug, [facility] [address] [id number] [place] Aug, [facility] [address] [facility] [id number] [address] Aug, [facility] [address] [id number], [place] [address] Mar, [facility] [address] [id number], [place] [address] Mar, [facility] [address] [id number] [place] [address] May, [facility] [address] [id number], [place] [address] Feb, [facility] [address] [id number], [place] [address] Feb, [facility] [address] [id number], [place] [address] Aug, IMMUNIZATIONS No Known Immunizations SOCIAL HISTORY Never Assessed REASON FOR VISIT Toenail Removal-JOS zabala PLAN OF CARE Activity Details Future/Pending Procedure NAIL REMOVAL PERMANENT (PARTIAL OR COMPLETE) VITAL SIGNS Height 66 in 2017-09-20 Weight 188 lbs 2017-09-20 Temperature 98 degrees Fahrenheit 2017-09-20 Heart Rate 88 bpm 2017-09-20 Respiratory Rate 16 2017-09-20 BMI 30.34 kg/m2 2017-09-20 Blood pressure systolic 124 mmHg 2017-09-20 Blood pressure diastolic 64 mmHg 2017-09-20 MEDICATIONS Medication Instructions Dosage Frequency Start Date End Date Duration Status Flomax 0.4 MG Orally Once a day 1 capsule 24h Active Flonase 50 MCG/ACT Nasally Once a day 1 spray in each nostril 24h June, 30 day(s) Active Hydrocodone-Acetaminophen 5-325 MG Orally every 6 hrs 1 tablet as needed 6h Sep, Active Humira 20 MG/0.4ML 0.8 ml Active Tylenol 8 Hour 650 MG Orally every 8 hrs 2 tablets as needed 8h Active RESULTS No Results PROCEDURES Procedure Date Ordered Result Body Site REMOVAL OF NAIL BED Sep 20, 2017 INSTRUCTIONS MEDICATIONS ADMINISTERED No Known Medications MEDICAL (GENERAL) HISTORY Type Description Date Medical History Chrons Surgical History Vasectomy Surgical History Kidney Stone Removal 08/2017
--- OUTSIDE RECORDS SUMMARY | 2018-02-23 14:40 | XMS REPORT ---
Author Author ROBERTO HIGGINS Organization [facility] Address [address] [place] [address] Care Team Providers Care Warp Picker Name Role Phone ROBERTO HIGGINS Unavailable PROBLEMS Type Condition ICD9-CM Code IPG38-CG Code Onset Dates Condition Status SNOMED Code Problem Kidney stone N20.0 Active 18011589 ALLERGIES No Known Allergies ENCOUNTERS Encounter Location Date Diagnosis [address] [address] Sep, Ingrowing left great toenail L60.0 and Onychomycosis B35.[address] [address] Aug, Ingrown toenail L60.0 [facility] [address] [address] June, Seasonal allergic rhinitis, unspecified trigger J30.2 and Acute bacterial conjunctivitis of both eyes H10.33 [facility] [address] [address] May, Hematuria, unspecified type R31.9 and Kidney stone N20.0 [facility] [address] [place] [address] 14 Dec, 2016 Body aches R52 and Upper respiratory infection, acute J06.9 [facility] [address] [address] 09 Dec, 2016 Acute bacterial conjunctivitis of right eye H10.[address] [address] 12 Nov, 2016 Encounter for immunization Z23 [facility] [address] [facility] [id number] [id number] Nov, Dental examination Z01.20 [facility] [address] [id number] [id number] June, Dental examination V72.2 [facility] [address] [id number], [place] [address] 14 May, 2014 [facility] [address] [id number], [place] [address] May, [facility] [address] [id number] [place] [address] Oct, [facility] [address] [id number], [place] [address] Oct, [facility] [address] [id number], [place] [address] Aug, [facility] [address] [id number], [place] [address] Aug, [facility] [address] [id number][place] Aug, [facility] [address] [id number], [place] [address] Aug, [facility] [address] [id number], [place] [address] Mar, [facility] [address] [id number], [place] [address] Mar, [facility] [address] [id number], [place] [address] May, [facility] [address] [id number], [place] [address] Feb, [facility] [address] [id number], [place] [address] Feb, [facility] [address] [id number], [place] [address] Aug, IMMUNIZATIONS No Known Immunizations SOCIAL HISTORY Never Assessed REASON FOR VISIT Catrachol c/o - JOS Clarke PLAN OF CARE Activity Details Follow Up prn Reason: VITAL SIGNS Height 66 in 2017-09-06 Weight 190.4 lbs 2017-09-06 Temperature 97.9 degrees Fahrenheit 2017-09-06 Heart Rate 86 bpm 2017-09-06 Respiratory Rate 20 2017-09-06 BMI 30.73 kg/m2 2017-09-06 Blood pressure systolic 130 mmHg 2017-09-06 Blood pressure diastolic 80 mmHg 2017-09-06 MEDICATIONS Medication Instructions Dosage Frequency Start Date End Date Duration Status Flomax 0.4 MG Orally Once a day 1 capsule 24h Active Tylenol 8 Hour 650 MG Orally every 8 hrs 2 tablets as needed 8h Active Hydrocodone-Acetaminophen 5-325 MG Orally every 6 hrs 1 tablet as needed 6h Active Humira 20 MG/0.4ML 0.8 ml Active Flonase 50 MCG/ACT Nasally Once a day 1 spray in each nostril 24h June, 30 day(s) Active RESULTS No Results PROCEDURES No Known procedures INSTRUCTIONS MEDICATIONS ADMINISTERED No Known Medications MEDICAL (GENERAL) HISTORY Type Description Date Medical History Chrons Surgical History Vasectomy Surgical History Kidney Stone Removal 08/2017
--- OUTSIDE RECORDS SUMMARY | 2018-02-23 14:40 | XMS REPORT ---
Author Author DELILAH DIAS Organization [facility] Address [address] [place] [address] Care Team Providers Care Knife Machine Operator Name Role Phone DELILAH DIAS Unavailable PROBLEMS Type Condition ICD9-CM Code WAZ32-GP Code Onset Dates Condition Status SNOMED Code Problem Kidney stone N20.0 Active 12062984 ALLERGIES No Known Allergies ENCOUNTERS Encounter Location Date Diagnosis [place] [address] [address] Sep, [place] [address] [address] Aug, Ingrown toenail L60.0 [facility] [address] [address] June, Seasonal allergic rhinitis, unspecified trigger J30.2 and Acute bacterial conjunctivitis of both eyes H10.33 [facility] [place] [id number] [place] [address] May, Hematuria, unspecified type R31.9 and Kidney stone N20.0 [facility] [place] [id number] [place] [address] 14 Dec, 2016 Body aches R52 and Upper respiratory infection, acute J06.9 [facility] [address] [address] 09 Dec, 2016 Acute bacterial conjunctivitis of right eye H10.31 [facility] [address] [place] [id number] [place] [address] 12 Nov, 2016 Encounter for immunization Z23 [facility] [address] [id number] Nov, Dental examination Z01.20 [facility] [address] [id number] [id number] June, Dental examination V72.2 [facility] [address] [facility] [id number], [place] [address] 14 May, 2014 [facility] [address] [facility] [id number], [place] [address] May, [facility] [address] [facility] [id number], [place] [address] Oct, [facility] [address] [id number], [place] [address] Oct, [facility] [address] [facility] [id number][place] [address] Aug, [facility] [address] [place] [id number], [place] [address] Aug, [facility] [address] [facility] [id number], [place] [address] Aug, [facility] [address] [place] [id number], [place] [address] Aug, [facility] [address] [place] [address] [id number], [place] [address] Mar, [facility] [address] [place] [address] [id number], [place] [address] Mar, [facility] [address] [facility] [id number], [place] [address] May, [facility] [address] [facility] [id number], [place] [address] Feb, [facility] [address] [facility] [id number], [place] [address] Feb, [facility] [address] [facility] [id number][place] [address] Aug, IMMUNIZATIONS No Known Immunizations SOCIAL HISTORY Never Assessed REASON FOR VISIT discolored urine and back pain JStrasserRN PLAN OF CARE Activity Details Follow Up prn Reason: VITAL SIGNS Height 66 in 2017-05-25 Weight 191.6 lbs 2017-05-25 Temperature 97.6 degrees Fahrenheit 2017-05-25 Heart Rate 80 bpm 2017-05-25 Respiratory Rate 20 2017-05-25 BMI 30.92 kg/m2 2017-05-25 Blood pressure systolic 110 mmHg 2017-05-25 Blood pressure diastolic 80 mmHg 2017-05-25 MEDICATIONS Medication Instructions Dosage Frequency Start Date End Date Duration Status Bactrim Not-Taking Xanax Not-Taking TobraDex 0.3-0.1 % Ophthalmic every 6 hrs 1 drop into affected eye 6h Dec, 5 days Not-Taking Maxitrol 3.5-89466-9.1 Ophthalmic Four times a day 1 drop into affected eye 6h Dec, 5 days Not-Taking Pantoprazole Sodium Not-Taking Flomax 0.4 MG Orally Once a day 1 capsule 24h May, June, 30 day(s) Active Doxycycline Hyclate 100 mg 1 tablet by Oral route 2 times per day for 10 days voucher Mar, Not-Taking Cipro 500 mg 1 tablet by Oral route every 12 hours for 7 day(s) Feb Not-Taking Chantix Not-Taking Fluticasone Furoate Not-Taking Apriso Not-Taking Hydrocodone-Acetaminophen 5-325 MG Orally every 6 hrs 1 tablet as needed 6h Active Flagyl 500 mg 1 tablet by Oral route 2 times per day for 7 days Aug Not-Taking Tylenol 8 Hour 650 MG Orally every 8 hrs 2 tablets as needed 8h Active PredniSONE 20 mg 2 tablet by Oral route 1 time per day x 3 d, 1 tabs po x 3d Aug, Not-Taking Xanax 1 mg prn Aug, Not-Taking Humira 20 MG/0.4ML 0.8 ml Active tramadol 50 mg take 1 tablet (50 mg) by oral route every 4-6 hours as needed PRN pain Aug, Not-Taking RESULTS Name Result Date Reference Range UA LONG DIP (IN HOUSE) 2017-05-25 Lot # [id number] Exp date 2017-12-14 Clarity clear Color pink Odor none GLU negative TI negative KET negative SG >=1.030 BLO 3+ pH 6.0 Protein 1+ URO 0.2 NIT negative MAURICIO negative Lot # [id number] Exp date May 2017 PROCEDURES Procedure Date Ordered Result Body Site URINALYSIS, AUTO, W/O SCOPE May 25, 2017 INSTRUCTIONS MEDICATIONS ADMINISTERED No Known Medications MEDICAL (GENERAL) HISTORY Type Description Date Medical History Chrons Surgical History Vasectomy Surgical History Kidney Stone Removal 08/2017
--- OUTSIDE RECORDS SUMMARY | 2018-02-23 14:40 | XMS REPORT ---
Author Author DELILAH DIAS Organization [facility] Address [address] [place] [address] Care Team Providers Care Saddle And Harness Maker Name Role Phone DELILAH DIAS Unavailable PROBLEMS Type Condition ICD9-CM Code KIJ10-KL Code Onset Dates Condition Status SNOMED Code Problem Kidney stone N20.0 Active 04205396 ALLERGIES No Known Allergies ENCOUNTERS Encounter Location Date Diagnosis [place] [address] [address] Sep, Ingrowing left great toenail L60.0 and Onychomycosis B35.1 [facility] [address] [place] [address] Aug, Ingrown toenail L60.0 [facility] [address] [place] [address] June, Seasonal allergic rhinitis, unspecified trigger J30.2 and Acute bacterial conjunctivitis of both eyes H10.33 [facility] [address] [address] May, Hematuria, unspecified type R31.9 and Kidney stone N20.0 [facility] [place] [address] [address] 14 Dec, 2016 Body aches R52 and Upper respiratory infection, acute J06.9 [facility] [address] [address] 09 Dec, 2016 Acute bacterial conjunctivitis of right eye H10.31 [facility] [address] [address] 12 Nov, 2016 Encounter for immunization Z23 [facility] [address] [id number] [id number] Nov, Dental examination Z01.20 [facility] [address] [id number] [address] June, Dental examination V72.2 [facility] [address] [id number] [place] [address] 14 May, 2014 [facility] [address] [id number], [place] [address] May, [facility] [address] [id number] [place] [address] Oct, [facility] [address] [id number], [place] [address] Oct, [facility] [address] [id number] [place] Aug, [facility] [address] [id number] Aug, [facility] [address] [id number], [place] [address] Aug, [facility] [address] [id number] Aug, [facility] [address] [id number], [place] [address] Mar, [facility] [address] [id number], [place] [address] Mar, [facility] [address] [id number], [place] [address] May, [facility] [address] [id number][place] [address] Feb, [facility] [place] [facility] [address] [id number], [place] [address] Feb, [facility] [address] [facility] [id number] [place] [address] Aug, IMMUNIZATIONS No Known Immunizations SOCIAL HISTORY Never Assessed REASON FOR VISIT pink eye/sore throat JStrasserRN PLAN OF CARE Activity Details Follow Up prn Reason: VITAL SIGNS Height 66 in 2017-06-22 Weight 186.0 lbs 2017-06-22 Temperature 97.5 degrees Fahrenheit 2017-06-22 Heart Rate 88 bpm 2017-06-22 Respiratory Rate 22 2017-06-22 BMI 30.02 kg/m2 2017-06-22 Blood pressure systolic 122 mmHg 2017-06-22 Blood pressure diastolic 80 mmHg 2017-06-22 MEDICATIONS Medication Instructions Dosage Frequency Start Date End Date Duration Status PredniSONE 20 mg 2 tablet by Oral route 1 time per day x 3 d, 1 tabs po x 3d Aug, Not-Taking Humira 20 MG/0.4ML 0.8 ml Active Pantoprazole Sodium Not-Taking TobraDex 0.3-0.1 % Ophthalmic every 6 hrs 1 drop into affected eye 6h Dec, 5 days Not-Taking Flonase 50 MCG/ACT Nasally Once a day 1 spray in each nostril 24h June, 30 day(s) Active Maxitrol 3.5-07852-6.1 Ophthalmic Four times a day 1 drop into affected eye 6h Dec, 5 days Not-Taking Apriso Not-Taking Hydrocodone-Acetaminophen 5-325 MG Orally every 6 hrs 1 tablet as needed 6h Active Flagyl 500 mg 1 tablet by Oral route 2 times per day for 7 days Aug Not-Taking Zyrtec Allergy 10 MG Orally Once a day 1 tablet 24h June, Jul, 30 day(s) Active tramadol 50 mg take 1 tablet (50 mg) by oral route every 4-6 hours as needed PRN pain Aug, Not-Taking Fluticasone Furoate Not-Taking Chantix Not-Taking Xanax Not-Taking Tylenol 8 Hour 650 MG Orally every 8 hrs 2 tablets as needed 8h Active Cipro 500 mg 1 tablet by Oral route every 12 hours for 7 day(s) Feb Not-Taking Bactrim Not-Taking Ofloxacin 0.3 % Ophthalmic Four times a day 1 drop into affected eye 6h June, June, 7 days Active Doxycycline Hyclate 100 mg 1 tablet by Oral route 2 times per day for 10 days voucher Mar, Not-Taking Ofloxacin 0.3 % Otic Once a day 10 drops into affected ear 24h June, June, 7 day(s) Active Flomax 0.4 MG Orally Once a day 1 capsule 24h May, June, 30 day(s) Not-Taking Xanax 1 mg prn Aug, Not-Taking RESULTS No Results PROCEDURES No Known procedures INSTRUCTIONS MEDICATIONS ADMINISTERED No Known Medications MEDICAL (GENERAL) HISTORY Type Description Date Medical History Chrons Surgical History Vasectomy Surgical History Kidney Stone Removal 08/2017
--- OUTSIDE RECORDS SUMMARY | 2018-02-23 14:41 | XMS REPORT | Continuity of Care Document ---
Author Author [facility] Organization [facility] Address Unknown Phone Unavailable Care Team Providers Care Hotel Maintenance Worker Name Role Phone NO, LOCAL PHYSICIAN PCP Unavailable Insurance Providers Payer Name Policy Number Subscriber Name Relationship Self Pay Dann Cuevas 18 Self / Same As Patient Advance Directives Directive Response Recorded Date/Time Advance Directives No 10/20/13 12:03am Health Care Power of Icer Air Conditioning No 10/20/13 12:03am Organ Donor No 10/20/13 12:03am Resuscitation Status Full Code 10/20/13 12:03am Problems Medical Problems Problem Onset Date Status Carpal tunnel syndrome Unknown Active Muscle spasms of head AND/OR neck Unknown Active Muscle strain Unknown Active Abdominal pain Unknown Active Diarrhea Unknown Active Medications Medication Dose Route Sig Days/Qty Instructions Order Date Discontinued Date Status Tramadol Hcl 03/17/09 10/08/10 Discontinued Esomeprazole Magnesium 03/17/09 10/08/10 Discontinued Fluticasone Furoate 03/17/09 10/08/10 Discontinued Amoxicillin 2 Each PO THREE TIMES A DAY 10 Days 10/22/11 04/25/13 Discontinued Fluticasone Propionate 2 Sprays NSEACH TWICE A DAY 1 Qty 10/22/1101/27 Discontinued Alprazolam 1 Tab PO NEEDED 7 Qty 03/03/12 04/25/13 Discontinued [Predpak] 03/03/12 04/25/13 Discontinued Prednisone 40 Mg PO DAILY 8 Qty 04/23/13 04/25/13 Discontinued Tramadol Hcl 50 Mg PO EVERY 4HRS PRN PAIN 20 Qty 04/23/13 04/25/13 Discontinued Cyclobenzaprine HCl (Flexeril) 1 Each PO Q8HR PRN PRN SPASMS 10 Qty 11/2704/25/13 Discontinued Ibuprofen (Motrin) 800 Mg PO q8h 30 Qty 04/23/13 04/25/13 Discontinued Methylprednisolone 1 Pkt PO DIRECTED PRN ABDOMINAL PAIN 1 Qty 14 10/20/13 Discontinued Hydrocodone Bit/Acetaminophen 1 Each PO EVERY 4HRS PRN PAIN 14 Qty 01/2710/20/13 Discontinued Methylprednisolone 1 Pkt PO DIRECTED 1 Qty 10/20/13 Active Hydrocodone Bit/Acetaminophen 1-2 Tab PO EVERY 6 HOURS PRN PAIN 10 Qty 10/20/13 Active Social History Social History Problem Response Recorded Date/Time Alcohol Use Rarely Uses 10/20/2013 12:03am Recreational Drug Use No 10/20/2013 12:03am Sexually Transmitted Disease No 10/20/2013 12:03am Smoking Status Current Everyday Smoker 10/20/2013 12:03am Query Response Start Date Stop Date Smoking Status Current Everyday Smoker Hospital Discharge Instructions No hospital discharge instructions. Plan of Care No plan of care. Functional Status No functional status results. Allergies, Adverse Reactions, Alerts Allergen Type Severity Reaction Status Last Updated propoxyphene napsylate Allergy Severe SEIZURES Active 10/09/10 Immunizations Name Given Type Date of Influenza Vaccine 03/02/12 Historical Vital Signs Acute Vital Signs Vital Response Date/Time Temperature (Fahrenheit) 97.6 degrees F (97.6 - 99.5) Temperature (Calculated Celsius) 36.03987 degrees C (36.4 - 37.5) Temperature Source Temporal Pulse Rate (adult) 72 bpm (60 - 90) Respiratory Rate 20 bpm (12 - 24) O2 Sat by Pulse Oximetry 99 % (88 - 100) Blood Pressure 120/76 mm Hg Pain Pain Intensity 8 Height (Feet) 5 feet Height (Inches) 6 inches Height (Calculated Centimeters) 167.029811 cm Weight (Pounds) 150 pounds Weight (Calculated Grams) 08177.856 gm Weight (Calculated Kilograms) 68.331944 kilograms Calculated BMI 24.21 Results Test Source Date Result Interp. Ref. Range Comments ANCA Pattern November 03, 2011 9:32am NOT CHERIE - Acetaminophen Screen February 21, 2009 8:28pm NEGATIVE - APAP= ACETAMINOPHEN/PARACETAMOL Alanine Aminotransferase (ALT/SGPT) April 25, 2013 8:38pm 39 U/L N 30- 65 Albumin April 25, 2013 8:38pm 3.6 G/DL N 3.4-5.0 Alkaline Phosphatase April 25, 2013 8:38pm 182 U/L H 50-136 Amylase Level July 21, 2011 1:28pm 38 U/L N 25-115 Anti-Gliadin IgA Antibody November 03, 2011 9:32am 6 UNITS - Interpretative data is available online at:[email or web address] Enter Test Number:[id number] Anti-Gliadin IgG Antibody November 03, 2011 9:32am 2 UNITS - Interpretative data is available online at:[email or web address] Enter Test Number:[id number] Anti-Neutrophil Cytoplasmic Ab November 03, 2011 9:32am <1:20 - This test was developed and its performance characteristicsdetermined by [facility]. It has not been cleared or approved by the U.S. Food and Drug Administration. The FDA has determined that such clearance or approval is not necessary. This test is used for clinical puposes. It should not be regarded as investigational or for research. This laboratory is certified under the Clinical Laboratory Improvement Amendments of 1988 (CLIA) as qualified to perform high complexity clinical testing. 03/19/1999 Aspartate Amino Transf (AST/SGOT) April 25, 2013 8:38pm 20 U/L N 15-37 BUN/Creatinine Ratio April 25, 2013 8:38pm 11 - Band Neutrophils March 17, 2009 6:55pm 0 % - Basophils # (Auto) April 25, 2013 8:38pm 0.1 10^3/uL N 0.0-0.1 Basophils % (Manual) March 17, 2009 6:55pm 0 % - Basophils (%) (Auto) April 25, 2013 8:38pm 1 % N 0-10 Blood Urea Nitrogen April 25, 2013 8:38pm 15 MG/DL N 7-18 C-Reactive Protein February 24, 2009 5:46am 5.1 MG/DL H 0.2-0.9 CSF Appearance February 22, 2009 1:36am - CSF Color February 22, 2009 1:36am COLORLESS - CSF Glucose February 22, 2009 1:36am 66 MG/DL N 50-80 CSF Lymphocytes February 22, 2009 1:36am Test not performed - CSF Mononuclear WBCs February 22, 2009 1:36am Test not performed - CSF Polynuclear WBCs February 22, 2009 1:36am Test not performed - CSF RBC February 22, 2009 1:36am 1 CELLS H 0-0 CSF Total Protein February 22, 2009 1:36am 42 MG/DL N 15-45 CSF Tube Number February 22, 2009 1:36am 3 - CSF WBC February 22, 2009 1:36am 0 CELLS N 0-5 DIFFERENTIAL NOT PERFORMED DUE TO LOW WBC COUNT Calcium Level April 25, 2013 8:38pm 9.3 MG/DL N 8.5-10.1 Carbon Dioxide Level April 25, 2013 8:38pm 31 MMOL/L N 21-32 Carcinoembryonic Antigen November 03, 2011 9:32am 1.0 NG/ML - INTERPRETIVE DATACEA IS A USEFUL TUMOR MARKER IN THE MONITORING AND STAGING OF PATIENTS WITH KNOWN CARCINOMA OF THE GASTROINTESTINAL TRACT. BREAST, PANCREAS AND LUNG. ELEVATIONS ALSO OCCUR IN SMOKERS AND BENIGN INFLAMMATORY CONDITIONS OF THE G.I. TRACT, LIVER, LUNG AND KIDNEY. CEA SHOULD,THEREFORE, NOT BE USED A SCREEN FOR MALIGNANT DISEASE. NON-SMOKERS <2.5 SMOKERS <5.0 PATIENTS WHO HAVE RECEIVED ONCOSCINT CR/OV TRACER MAY DEVELOP HUMAN ANTI MOUSE ANTIBODIES THAT CAUSE INTERFERENCE IN THIS TEST AND CAUSE FALSELY ELEVATED RESULTS. PLEASE ADVISE THE LABORATORY IF THIS IS A POSSIBILITY SO THAT ALTERNATE TESTING PROCEDURES MAY BE USED. Chloride Level April 25, 2013 8:38pm 108 MMOL/L N 101-110 Creatinine April 25, 2013 8:38pm 1.4 MG/DL H 0.6-1.3 Eosinophils # (Auto) April 25, 2013 8:38pm 0.1 10^3/uL N 0.0-0.3 Eosinophils % (Manual) March 17, 2009 6:55pm 1 % - Eosinophils (%) (Auto) April 25, 2013 8:38pm 1 % N 0-10 Erythrocyte Sedimentation Rate March 02, 2012 6:32am 11 MM/HR N 0-15 Ferritin November 03, 2011 9:32am 245 NG/ML - Glucose Level April 25, 2013 8:38pm 105 MG/DL N 74-106 Hematocrit April 25, 2013 8:38pm 43 % N 40-54 Hemoglobin April 25, 2013 8:38pm 14.7 G/DL N 13.3-17.7 Hemoglobin A1c November 03, 2011 9:32am 5.3 % N 4.5-6.2 Immunoglobulin A November 03, 2011 9:32am 314 H MG/DL - Iron Level November 03, 2011 9:32am 122 UG/DL N 50-175 Lipase April 25, 2013 8:38pm 83 U/L N 73-393 Lymphocytes # (Auto) April 25, 2013 8:38pm 1.7 X 10^3 N 1.0-4.0 Lymphocytes % (Manual) March 17, 2009 6:55pm 2 % - Lymphocytes (%) (Auto) April 25, 2013 8:38pm 17 % N 12-44 Mean Corpuscular Hemoglobin April 25, 2013 8:38pm 31 PG N 25-34 Mean Corpuscular Hemoglobin Concent April 25, 2013 8:38pm 35 G/DL N 32- 36 Mean Corpuscular Volume April 25, 2013 8:38pm 91 FL N 80-99 Mean Platelet Volume April 25, 2013 8:38pm 10.0 FL N 7.4-10.4 Metamyelocytes % March 17, 2009 6:55pm 0 % - Monocytes # (Auto) April 25, 2013 8:38pm 1.1 X 10^3 H 0.0-1.0 Monocytes % (Manual) March 17, 2009 6:55pm 4 % - Monocytes (%) (Auto) April 25, 2013 8:38pm 11 % N 0-12 Myelocytes % March 17, 2009 6:55pm 0 % - Neutrophils # (Auto) April 25, 2013 8:38pm 7.1 X 10^3 N 1.8-7.8 Neutrophils % (Manual) March 17, 2009 6:55pm 93 % - Neutrophils (%) (Auto) April 25, 2013 8:38pm 71 % N 42-75 Platelet Count April 25, 2013 8:38pm 291 10^3/uL N 130-400 Post Vasectomy Sperm Presence May 06, 2009 7:00pm ABSENT - Potassium Level April 25, 2013 8:38pm 4.3 MMOL/L N 3.6-5.0 Promyelocytes % March 17, 2009 6:55pm 0 % - Reactive Lymphocytes March 17, 2009 6:55pm 0 % - Red Blood Count April 25, 2013 8:38pm 4.69 10^6/uL N 4.35-5.85 Red Cell Distribution Width April 25, 2013 8:38pm 13.0 % N 10.0-14.5 Saccharomyces cerevisiae IgA Ab November 03, 2011 9:32am 52.6 H U - Reference Range (ASCA IGA AB): <=20.0 NEGATIVE 20.1-24.9 EQUIVOCAL >=25.0 POSITIVE THIS TEST WAS PERFORMED AT [facility] [address] [place] [id number] Saccharomyces cerevisiae IgG Ab November 03, 2011 9:32am 52.6 H U - Reference Range (ASCA IGG AB): <=20.0 NEGATIVE 20.1-29.9 EQUIVOCAL >=30.0 POSITIVE THIS TEST WAS PERFORMED AT [facility] [address] [id number] Sodium Level April 25, 2013 8:38pm 144 MMOL/L N 135-145 Stomatocytes March 17, 2009 6:55pm MODERATE - Stone Brushite January 27, 2009 3:00pm 1.74 - Stone Calcium January 27, 2009 3:00pm 208 MG/DAY - Stone Oxalate January 27, 2009 3:00pm 39 MG/DAY - Stone Sodium Acid Urate January 27, 2009 3:00pm 3.08 H - Stone Struvite January 27, 2009 3:00pm 0.55 - Stone Uric Acid January 27, 2009 3:00pm 712 H MG/DAY - TSH [place] Testing November 03, 2011 9:32am 1.73 UIU/ML N 0.34-5.60 Tissue Transglutaminase IgA Ab November 03, 2011 9:32am 4 UNITS - Interpretative data is available online at:[email or web address] Enter Test Number:[id number] Total Bilirubin April 25, 2013 8:38pm 0.2 MG/DL N 0.0-1.0 Total Protein April 25, 2013 8:38pm 7.3 G/DL N 6.4-8.2 Ur Tricyclic Antidepressants Screen February 21, 2009 8:28pm NEGATIVE - Urine Ammonium 24 Hour January 27, 2009 3:00pm 50 MEQ/DAY - Urine Amphetamines Screen February 21, 2009 8:28pm NEGATIVE - Urine Bacteria March 02, 2012 6:33am NEGATIVE /HPF - Has specimen been collected/obtained? YSpecimen Description CLEAN CATCH Urine Barbiturates Screen February 21, 2009 8:28pm NEGATIVE - Urine Benzodiazepines Screen February 21, 2009 8:28pm NEGATIVE - Urine Bilirubin March 02, 2012 6:33am NEGATIVE - Has specimen been collected/obtained? YSpecimen Description CLEAN CATCH Urine Calcium Oxalate Crystals October 08, 2010 8:41pm FEW H - Has specimen been collected/obtained? YSpecimen Description CLEAN CATCH Urine Casts March 02, 2012 6:33am NONE /LPF - Has specimen been collected/obtained? YSpecimen Description CLEAN CATCH Urine Citrate 24 Hour January 27, 2009 3:00pm 356 MG/DAY - Urine Clarity March 02, 2012 6:33am CLEAR - Has specimen been collected/obtained? YSpecimen Description CLEAN CATCH Urine Cocaine Screen February 21, 2009 8:28pm NEGATIVE - Urine Color March 02, 2012 6:33am YELLOW - Has specimen been collected/obtained? YSpecimen Description CLEAN CATCH Urine Creatinine 24 Hour January 27, 2009 3:00pm 2394 H MG/DAY - Urine Crystals March 02, 2012 6:33am NONE /LPF - Has specimen been collected/obtained? YSpecimen Description CLEAN CATCH Urine Culture Indicated March 02, 2012 6:33am NO - Has specimen been collected/obtained? YSpecimen Description CLEAN CATCH Urine Glucose (UA) March 02, 2012 6:33am NEGATIVE - Has specimen been collected/obtained? YSpecimen Description CLEAN CATCH Urine Ketones March 02, 2012 6:33am NEGATIVE - Has specimen been collected/obtained? YSpecimen Description CLEAN CATCH Urine Leukocyte Esterase March 02, 2012 6:33am NEGATIVE - Has specimen been collected/obtained? YSpecimen Description CLEAN CATCH Urine Magnesium 24 Hour January 27, 2009 3:00pm 67 MG/DAY - Urine Methamphetamines Screen February 21, 2009 8:28pm NEGATIVE - Urine Mucus March 02, 2012 6:33am NEGATIVE /LPF - Has specimen been collected/obtained? YSpecimen Description CLEAN CATCH Urine Nitrite March 02, 2012 6:33am NEGATIVE - Has specimen been collected/obtained? YSpecimen Description CLEAN CATCH Urine Opiates Screen February 21, 2009 8:28pm NEGATIVE - Urine Phencyclidine Screen February 21, 2009 8:28pm NEGATIVE - Phencyclidine testing by this method can showcross-reactivity with several common medications such as venlafaxine, dextromethorphan, and diphenhydramine. Submission of any positive sample for confirmatory testing is recommended. Urine Phosphorus 24 Hour January 27, 2009 3:00pm 1307 H MG/DAY - Urine Potassium 24 Hour January 27, 2009 3:00pm 58 MEQ/DAY - Urine Protein March 02, 2012 6:33am NEGATIVE - Has specimen been collected/obtained? YSpecimen Description CLEAN CATCH Urine RBC March 02, 2012 6:33am 0-2 /HPF - Has specimen been collected/obtained? YSpecimen Description CLEAN CATCH Urine Random Creatinine February 23, 2009 2:40pm 192 MG/DL - RESULT VERIFIED Urine Random Sodium February 23, 2009 2:40pm 10 MMOL/L L 50-200 Urine Sodium 24 Hour January 27, 2009 3:00pm 197 MEQ/DAY - Urine Specific [place] March 02, 2012 6:33am 1.025 H - Has specimen been collected/obtained? YSpecimen Description CLEAN CATCH Urine Squamous Epithelial Cells October 08, 2010 8:41pm 0-2 - Has specimen been collected/obtained? YSpecimen Description CLEAN CATCH Urine Total Volume 24 Hours January 27, 2009 3:00pm 1.75 L L/DAY - Urine Urobilinogen March 02, 2012 6:33am NORMAL MG/DL - Has specimen been collected/obtained? YSpecimen Description CLEAN CATCH Urine WBC March 02, 2012 6:33am NONE /HPF - Has specimen been collected/obtained? YSpecimen Description CLEAN CATCH Urine White Blood Cell Casts March 17, 2009 6:40pm 0-2 H - Has specimen been collected/obtained? YSpecimen Description CLEAN CATCH Urine pH March 02, 2012 6:33am 5 - Has specimen been collected/ obtained? YSpecimen Description CLEAN CATCH White Blood Count April 25, 2013 8:38pm 10.0 10^3/uL N 4.3-11.0 Urine Stone Risk January 27, 2009 3:00pm SEE FOOTNOTE - HYPERURICOSURIC NEPHROLITHIASIS Stone Calcium Oxalate January 27, 2009 3:00pm 1.97 - Lab Scanned Report January 27, 2009 10:52am Referred Lab Report [id number] - Smear Scan October 08, 2010 8:35pm children counselor - Estimat Glomerular Filtration Rate April 25, 2013 8:38pm 59 - GFR INTERPRETIVE DATA UNITS FOR ESTIMATED GFR (eGFR): mL/min/1.73 M2 REFERENCE RANGE FOR ESTIMATED GFR (eGFR) eGFR NORMAL eGFR >60 MODERATELY DECREASED eGFR 30-59 SEVERLY DECREASED eGFR 15-29 KIDNEY FAILURE <15 (OR DIALYSIS) Urine Uric Acid Saturation Ratio January 27, 2009 3:00pm 1.72 - Urine Stone Risk Review January 27, 2009 3:00pm SEE FOOTNOTE - HYPERURICOSURIALOW URINE VOLUME Urine Stone Risk Graph January 27, 2009 3:00pm SEE FOOTNOTE - SUSPECT OVERCOLLECTION BASED ON CREATININE ANALYSIS. Urine pH 24 Hour January 27, 2009 3:00pm 6.0 - Blood Morphology Comment February 23, 2009 6:25am NORMAL - Urine Methadone Screen February 21, 2009 8:28pm NEGATIVE - Urine Cannabinoids Screen February 21, 2009 8:28pm POSITIVE H - Urine Supersaturation Interpret January 27, 2009 3:00pm SEE FOOTNOTE - MONOSODIUM URATE Urine RBC (Auto) March 02, 2012 6:33am NEGATIVE - Has specimen been collected/obtained? YSpecimen Description CLEAN CATCH Urine Sulfites January 27, 2009 3:00pm 22 MMOL/DAY - Blood Culture Peripheral-Rt Ac February 22, 2009 1:35am No growth Gram Stain Cerebral Spinal Fluid February 22, 2009 1:36am MRSA Screen Nasal February 22, 2009 4:20pm MRSA not isolated Urine Culture Urine-Clean Catch October 08, 2010 8:41pm NO GROWTH Procedures No known history of procedures. Encounters Encounter Location Date/Time Departed Emergency Room [facility] 10/19/13 11:48pm Recent Diagnosis
--- OUTSIDE RECORDS SUMMARY | 2018-02-23 14:42 | XMS REPORT | Continuity of Care Document ---
Author Author [facility] Address Unknown Phone Unavailable Allergies Active Description Code Type Severity Reaction Onset Reported/Identified Relationship to Patient Clinical Status Yes Darvocet-N 100 Drug Allergy 08/25/2009 Yes Darvocet-N 100 Drug Allergy N /A N/A 08/25/2009 Yes propoxyphene napsylate [id number] Drug Allergy Severe SEIZURES 2010 Medications There [...] BOWLING APRN 473.0 CHRONIC SINUSITIS, MAXILLARY 03/13/2009 DASH STEWARD/STEWARDESS BANQUET, ROBEL T 555.9 REGIONAL ENTERITIS OF UNSPECIFIED SITE 03/13/2009 ROBEL BOWLING APRN 584.9 ACUTE KIDNEY FAILURE, UNSPECIFIED 03/13/2009 ROEBL BOWLING APRN 789.06 ABDOMINAL PAIN, EPIGASTRIC 03/13/2009 SYKES DO HALEY K 473.0 CHRONIC SINUSITIS, MAXILLARY 03/13/2009 SYKES DO, HALEY K 555.9 REGIONAL ENTERITIS OF UNSPECIFIED SITE 03/13/2009 SYKES DO, HALEY K 584.9 ACUTE KIDNEY FAILURE, UNSPECIFIED 03/13/2009 SYKES DO HALEY K 789.06 ABDOMINAL PAIN, EPIGASTRIC 03/13/2009 SHAKA MUNGUIA APRN S 473.0 CHRONIC SINUSITIS, MAXILLARY 03/13/2009 ADRIENNE MUNGUIA APRNA S 555.9 REGIONAL ENTERITIS OF UNSPECIFIED SITE 03/13/2009 NILDA STEWARD/STEWARDESS BANQUET, SHAKA S 584.9 ACUTE KIDNEY FAILURE, UNSPECIFIED 03/13/2009 SOHAM MUNGUIA APRNNDA S 789.06 ABDOMINAL PAIN, EPIGASTRIC 08/04/2009 Ot [...] 789.00 06/19/2014 SHAKA MUNGUIA Ot 569.9 06/19/2014 ARDIENNE MUNGUIAA UNIT COORDINATOR Ot 592.0 06/19/2014 SHAKA MUNGUIAP Ot 789.00 02/21/2015 Ot 555.9 02/21/2015 Ot V72.84 02/21/2015 Ot 560.9 02/21/2015 SHAKA MUNGUIA UNIT COORDINATOR Ot 569.9 02/21/2015 SHAKA MUNGUIAP Ot 592.0 02/21/2015 ADRIENNE MUNGUIAA UNIT COORDINATOR Ot 789.00 03/07/2015 Ot 555.9 03/07/2015 Ot V72.84 03/07/2015 Ot 560.9 03/07/2015 SHAKA MUNGUIAP Ot 569.9 03/07/2015 SHAKA MUNGUIA UNIT COORDINATOR Ot 592.0 03/07/2015 SHAKA MUNGUIAP Ot 789.00 03/07/2015 MAG ANTON, BRENTON J Ot M54.2 03/07/2015 MAG ANTON, BRENTON J Ot R51 03/12/2015 MAG ANTON, BRENTON J Ot M54.2 03/12/2015 MAG ANTON, BRENTON J Ot R51 03/18/2015 MAG ANTON, BRENTON J Ot M54.2 03/18/2015 MAG ANTON, BRENTON J Ot M54.5 03/21/2015 MAG ANTON, BRENTON J Ot M54.2 CERVICALGIA 03/21/2015 MAG ANTON, BRENTON J Ot M54.5 LOW BACK PAIN 04/01/2015 MAG ANTON, BRENTON J Ot M54.2 04/01/2015 MAG ANTON, BRENTON J Ot R51 07/03/2015 MAG ANTON, BRENTON J Ot M54.2 CERVICALGIA 07/03/2015 MAG ANTON, BRENTON J Ot R51 HEADACHE 08/22/2015 Ot 555.9 REGIONAL ENTERITIS NOS 08/22/2015 Ot V72.84 EXAM PRE- OPERATIVE NOS 08/22/2015 Ot 560.9 INTESTINAL OBSTRUCT NOS 08/22/2015 SHAKA MUNGUIA UNIT COORDINATOR Ot 569.9 INTESTINAL DISORDER NOS 08/22/2015 SHAKA MUNGUIAP Ot 592.0 CALCULUS OF KIDNEY 08/22/2015 SHAKA MUNGUIA UNIT COORDINATOR Ot 789.00 ABDOMINAL PAIN, UNSPECIFIED SITE 08/22/2015 MAG ANTON, BRENTON Teresa Ot M54.2 CERVICALGIA 08/22/2015 MAG ANTON, BRENTON Teresa Ot R51 HEADACHE 08/22/2015 Ot 555.9 REGIONAL ENTERITIS NOS 08/22/2015 Ot V72.84 EXAM PRE- OPERATIVE NOS 08/22/2015 Ot 560.9 INTESTINAL OBSTRUCT NOS 08/22/2015 SHAKA MUNGUIA UNIT COORDINATOR Ot 569.9 INTESTINAL DISORDER NOS 08/22/2015 NILDASHAKA VALADEZ UNIT COORDINATOR Ot 592.0 CALCULUS OF KIDNEY 08/22/2015 NILDA SHAKA UNIT COORDINATOR Ot 789.00 ABDOMINAL PAIN, UNSPECIFIED SITE 08/22/2015 MAG ANTON, BRENTON Teresa Ot M54.2 CERVICALGIA 08/22/2015 MAG ANTON, BRENTON Teresa Ot R51 HEADACHE 08/22/2015 BESSIE ANTON, SUNNI T Ot F17.210 NICOTINE DEPENDENCE, CIGARETTES, UNCOMPL 08/22/2015 BESSIE ANTON, SUNNI T Ot K50.90 CROHN'S DISEASE, UNSPECIFIED, WITHOUT CO 08/22/2015 BESSIE ANTON, SUNNI T Ot R10.30 LOWER ABDOMINAL PAIN, UNSPECIFIED 08/22/2015 BESSIE ANTON, SUNNI Mike Ot R11.0 NAUSEA 08/22/2015 BESSIE ANTON, SUNNI T Ot R19.7 DIARRHEA, UNSPECIFIED 08/28/2015 BESSIE ANTON, SUNNI T Ot F17.210 NICOTINE DEPENDENCE, CIGARETTES, UNCOMPL 08/28/2015 BESSIE ANTON, SUNNI T Ot K50.90 CROHN'S DISEASE, UNSPECIFIED, WITHOUT CO 08/28/2015 BESSIE ANTON, SUNNI T Ot R10.30 LOWER ABDOMINAL PAIN, UNSPECIFIED 08/28/2015 SUNNI AL MD Ot R11.0 NAUSEA 08/28/2015 BESSIE ANTON, SUNNI T Ot R19.7 DIARRHEA, UNSPECIFIED 11/11/2015 VIVIANA GLOVER STEWARD/STEWARDESS BANQUET Ot F17.210 NICOTINE DEPENDENCE, CIGARETTES, UNCOMPL 11/11/2015 VIVIANA GLOVER STEWARD/STEWARDESS BANQUET Ot 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 11/11/2015 VIVIANA GLOVER STEWARD/STEWARDESS BANQUET Ot R10.30 LOWER ABDOMINAL PAIN, UNSPECIFIED 11/11/2015 VIVAINA GLOVER STEWARD/STEWARDESS BANQUET Ot Z79.899 OTHER GROUP HOME (CURRENT) DRUG THERAPY 11/12/2015 VIVIANA GLOVER STEWARD/STEWARDESS BANQUET Ot F17.210 NICOTINE DEPENDENCE, CIGARETTES, UNCOMPL 11/12/2015 VIVIANA GLOVER STEWARD/STEWARDESS BANQUET Ot 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 11/12/2015 VIVIANA GLOVER STEWARD/STEWARDESS BANQUET Ot R10.30 LOWER ABDOMINAL PAIN, UNSPECIFIED 11/12/2015 VIVIANA GLOVER STEWARD/STEWARDESS BANQUET Ot Z79.899 OTHER JAVA ANALYST (CURRENT) DRUG THERAPY 11/18/2015 VIVIANA GLOVER STEWARD/STEWARDESS BANQUET Ot F17.210 NICOTINE DEPENDENCE, CIGARETTES, UNCOMPL 11/18/2015 VIVIANA GLOVER STEWARD/STEWARDESS BANQUET Ot 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 11/18/2015 VIVIANA GLOVER STEWARD/STEWARDESS BANQUET Ot R10.30 LOWER ABDOMINAL PAIN, UNSPECIFIED 11/18/2015 VIVIANA GLOVER STEWARD/STEWARDESS BANQUET Ot Z79.899 OTHER JAVA ANALYST (CURRENT) DRUG THERAPY 01/22/2016 Ot 555.9 REGIONAL ENTERITIS NOS 01/22/2016 Ot V72.84 EXAM PRE- OPERATIVE NOS 01/22/2016 Ot 560.9 INTESTINAL OBSTRUCT NOS 01/22/2016 SHAKA MUNGUIA UNIT COORDINATOR Ot 569.9 INTESTINAL DISORDER NOS 01/22/2016 SHAKA MUNGUIAP Ot 592.0 CALCULUS OF KIDNEY 01/22/2016 SHAKA MUNGUIAP Ot 789.00 ABDOMINAL PAIN, UNSPECIFIED SITE 01/22/2016 MAG ANTON, BRENTON Teresa Ot M54.2 CERVICALGIA 01/22/2016 MAG ANTON, BRENTON Teresa Ot R51 HEADACHE 02/10/[address] DO Ot M54.5 LOW BACK PAIN 09/01/2016 Ot 555.9 REGIONAL ENTERITIS NOS 09/01/2016 Ot V72.84 EXAM PRE- OPERATIVE NOS 09/01/2016 Ot 560.9 INTESTINAL OBSTRUCT NOS 09/01/2016 SHAKA MUNGUIA UNIT COORDINATOR Ot 569.9 INTESTINAL DISORDER NOS 09/01/2016 SHAKA MUNGUIA UNIT COORDINATOR Ot 592.0 CALCULUS OF KIDNEY 09/01/2016 SHAKA MUNGUIA UNIT COORDINATOR Ot 789.00 ABDOMINAL PAIN, UNSPECIFIED SITE 09/01/2016 MAG ANTON, BRENTON Teresa Ot M54.2 CERVICALGIA 09/01/2016 MAG ANTON, BRENTON Teresa Ot R51 HEADACHE 09/01/2016 YENIFER DYLON JANSEN Ot M54.5 LOW BACK PAIN 09/02/2016 Ot 555.9 REGIONAL ENTERITIS NOS 09/02/2016 Ot V72.84 EXAM PRE- OPERATIVE NOS 09/02/2016 Ot 560.9 INTESTINAL OBSTRUCT NOS 09/02/2016 SHAKA MUNGUIA UNIT COORDINATOR Ot 569.9 INTESTINAL DISORDER NOS 09/02/2016 SHAKA MUNGUIA UNIT COORDINATOR Ot 592.0 CALCULUS OF KIDNEY 09/02/2016 SHAKA MUNGUIA UNIT COORDINATOR Ot 789.00 ABDOMINAL PAIN, UNSPECIFIED SITE 09/02/2016 MAG ANTON, BRENTON Teresa Ot M54.2 CERVICALGIA 09/02/2016 MAG ANTON, BRENTON Teresa Ot R51 HEADACHE 09/02/2016 YENIFER DYLON JANSEN Ot M54.5 LOW BACK PAIN 09/02/2016 DELMA JANSEN ANGELA K Ot F17.210 NICOTINE DEPENDENCE, CIGARETTES, UNCOMPL 09/02/2016 DELMA DO, ANGELA K Ot G89.29 OTHER CHRONIC PAIN 09/02/2016 DELMA DO, ANGELA K Ot 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 09/02/2016 DELMA JANSEN ANGELA K Ot K92.1 MELENA 09/02/2016 JESSICA NGUYỄN DOA Doris Ot M54.9 DORSALGIA, UNSPECIFIED 09/02/2016 JESSICA NGUYỄN DOA Doris Ot Z98.52 VASECTOMY STATUS 09/02/2016 RONY CANTU STEWARD/STEWARDESS BANQUET Ot K50.90 CROHN'S DISEASE, UNSPECIFIED, WITHOUT CO 09/03/2016 RONY CNATU STEWARD/STEWARDESS BANQUET Ot K50.90 CROHN'S DISEASE, UNSPECIFIED, WITHOUT CO 09/03/2016 RONY CANTU STEWARD/STEWARDESS BANQUET Ot K50.90 CROHN'S DISEASE, UNSPECIFIED, WITHOUT CO 09/06/2016 DELMA DO ANGELA K Ot F17.210 NICOTINE DEPENDENCE, CIGARETTES, UNCOMPL 09/06/2016 DELMA DO, ANGELA K Ot G89.29 OTHER CHRONIC PAIN 09/06/2016 DELMA DO ANGELA K Ot 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 09/06/2016 ANGELA NGUYỄN DO Ot K92.1 MELENA 09/06/2016 ANGELA NGUYỄN DO Ot M54.9 DORSALGIA, UNSPECIFIED 09/06/2016 ANGELA NGUYỄN DO Ot Z98.52 VASECTOMY STATUS 11/13/2016 RONY CANTU STEWARD/STEWARDESS BANQUET Ot K50.90 CROHN'S DISEASE, UNSPECIFIED, WITHOUT CO 02/09/2017 Ot 555.9 REGIONAL ENTERITIS NOS 02/09/2017 Ot V72.84 EXAM PRE- OPERATIVE NOS 02/09/2017 Ot 560.9 INTESTINAL OBSTRUCT NOS 02/09/2017 SHAKA MUNGUIA UNIT COORDINATOR Ot 569.9 INTESTINAL DISORDER NOS 02/09/2017 SHAKA MUNGUIA UNIT COORDINATOR Ot 592.0 CALCULUS OF KIDNEY 02/09/2017 SHAKA MUNGUIA UNIT COORDINATOR Ot 789.00 ABDOMINAL PAIN, UNSPECIFIED SITE 02/09/2017 MAG ANTON, BRENTON Teresa Ot M54.2 CERVICALGIA 02/09/2017 MAG ANTON, BRENTON Teresa Ot R51 HEADACHE 02/09/[address] DO Ot M54.5 LOW BACK PAIN 02/09/2017 ALONDRADEIDRARONY L STEWARD/STEWARDESS BANQUET Ot K50.90 CROHN'S DISEASE, UNSPECIFIED, WITHOUT CO 02/09/2017 GLOVERVIVIANA SHEPARD APRN Ot K50.90 CROHN'S DISEASE, UNSPECIFIED, WITHOUT CO 02/09/2017 VIVIANA GLOVER STEWARD/STEWARDESS BANQUET Ot R50.9 FEVER, UNSPECIFIED 02/09/2017 VIVIANA GLOVER APRN Ot Z87.442 PERSONAL HISTORY OF URINARY CALCULI 02/09/2017 VIVIANA GLOVER STEWARD/STEWARDESS BANQUET Ot Z98.52 VASECTOMY STATUS 02/11/2017 VIVIANA GLOVER STEWARD/STEWARDESS BANQUET Ot K50.90 CROHN'S DISEASE, UNSPECIFIED, WITHOUT CO 02/11/2017 VIVIANA GLOVER STEWARD/STEWARDESS BANQUET Ot R50.9 FEVER, UNSPECIFIED 02/11/2017 VIVIANA GLOVER APRN Ot Z87.442 PERSONAL HISTORY OF URINARY CALCULI 02/11/2017 VIVIANA GLOVER STEWARD/STEWARDESS BANQUET Ot Z98.52 VASECTOMY STATUS 03/17/2017 OTHER, UNLISTED Ot R53.1 WEAKNESS 03/17/2017 OTHER, UNLISTED Ot R82.90 UNSPECIFIED ABNORMAL FINDINGS IN URINE 03/17/2017 OTHER, UNLISTED Ot R53.1 WEAKNESS 03/17/2017 OTHER, UNLISTED Ot R82.90 UNSPECIFIED ABNORMAL FINDINGS IN URINE 03/27/2017 ANGELA NGUYỄN DO Ot F12.10 CANNABIS ABUSE, UNCOMPLICATED 03/27/2017 ANGELA NGUYỄN DO K Ot F15.10 OTHER STIMULANT ABUSE, UNCOMPLICATED 03/27/2017 ANGELA NGUYỄN DO K Ot F17.210 NICOTINE DEPENDENCE, CIGARETTES, UNCOMPL 03/27/2017 DELMA ANGELA JANSEN K Ot K50.90 CROHN'S DISEASE, UNSPECIFIED, WITHOUT CO 03/27/2017 DELMA JESSICA JANSENA K Ot R51 HEADACHE 03/27/2017 DELMA JESSICA JANSENA K Ot Z79.52 JAVA ANALYST (CURRENT) USE OF SYSTEMIC STER 03/27/2017 DELMA DO ANGELA K Ot Z87.19 PERSONAL HISTORY OF OTHER DISEASES OF 03/27/2017 DELMA JESSICA JANSENA K Ot Z87.442 PERSONAL HISTORY OF URINARY CALCULI 03/27/2017 DELMA JESSICA JANSENA K Ot Z88.8 ALLERGY STATUS TO OTH DRUG/MEDS/BIOL SUB 03/27/2017 DELMA DO ANGELA K Ot Z98.52 VASECTOMY STATUS 03/29/2017 DELMA ANGELA JANSEN Ot F12.10 CANNABIS ABUSE, UNCOMPLICATED 03/29/2017 DELMA ANGELA JANSEN Ot F15.10 OTHER STIMULANT ABUSE, UNCOMPLICATED 03/29/2017 DELMA ANGELA JANSEN Ot F17.210 NICOTINE DEPENDENCE, CIGARETTES, UNCOMPL 03/29/2017 DELMA ANGELA JANSEN K Ot K50.90 CROHN'S DISEASE, UNSPECIFIED, WITHOUT CO 03/29/2017 DELMA JESSICA JANSENA K Ot R51 HEADACHE 03/29/2017 DELMA DO ANGELA K Ot Z79.52 GROUP HOME (CURRENT) USE OF SYSTEMIC STER 03/29/2017 DELMA ANGELA K Ot Z87.19 PERSONAL HISTORY OF OTHER DISEASES OF 03/29/2017 DELMA JESSICA JANSENA K Ot Z87.442 PERSONAL HISTORY OF URINARY CALCULI 03/29/2017 EDLMA DO ANGELA K Ot Z88.8 ALLERGY STATUS TO OTH DRUG/MEDS/BIOL SUB 03/29/2017 DELMA ANGELA K Ot Z98.52 VASECTOMY STATUS 03/31/2017 OTHER, UNLISTED Ot R53.1 WEAKNESS 03/31/2017 OTHER, UNLISTED Ot R82.90 UNSPECIFIED ABNORMAL FINDINGS IN URINE 06/24/2017 VIVIANA GLOVER APRN Ot F12.10 CANNABIS ABUSE, UNCOMPLICATED 06/24/2017 VIVIANA GLOVER APRN Ot F15.10 OTHER STIMULANT ABUSE, UNCOMPLICATED 06/24/2017 VIVIANA GLOVER APRN Ot F17.210 NICOTINE DEPENDENCE, CIGARETTES, UNCOMPL 06/24/2017 VIVIANA GLOVER APRN Ot N20.1 CALCULUS OF URETER 06/24/2017 VIVIANA GLOVER APRN Ot R30.0 DYSURIA 06/24/2017 VIVIANA GLOVER APRN Ot Z87.19 PERSONAL HISTORY OF OTHER DISEASES OF 06/24/2017 VIVIANA GLOVER APRN Ot Z87.442 PERSONAL HISTORY OF URINARY CALCULI 06/24/2017 VIVIANA GLOVER APRN Ot Z88.8 ALLERGY STATUS TO OT DRUG/MEDS/BIOL SUB 06/24/2017 VIVIANA GLOVER APRN Ot Z98.52 VASECTOMY STATUS 06/28/2017 VIVIANA GLOVER APRN Ot N20.1 CALCULUS OF URETER 06/28/2017 MAURO FRY MD Ot N20.2 CALCULUS OF KIDNEY WITH CALCULUS OF URET 06/28/2017 MAURO FRY MD Ot N35.9 URETHRAL STRICTURE, UNSPECIFIED 06/30/2017 MAURO FRY MD Ot N20.2 CALCULUS OF KIDNEY WITH CALCULUS OF URET 06/30/2017 MAURO FRY MD Ot N35.9 URETHRAL STRICTURE, UNSPECIFIED 07/03/2017 BRIAN WOODS MD Ot F12.10 CANNABIS ABUSE, UNCOMPLICATED 07/03/2017 BRIAN WOODS MD Ot F15.10 OTHER STIMULANT ABUSE, UNCOMPLICATED 07/03/2017 BRIAN WOODS MD Ot F17.210 NICOTINE DEPENDENCE, CIGARETTES, UNCOMPL 07/03/2017 BRIAN WOODS MD Ot N39.0 URINARY TRACT INFECTION, SITE NOT SPECIF 07/03/2017 BRIAN WOODS MD Ot R31.9 HEMATURIA, UNSPECIFIED 07/03/2017 BRIAN WOODS MD Ot Z87.19 PERSONAL HISTORY OF OTHER DISEASES OF 07/03/2017 BRIAN WOODS MD Ot Z87.442 PERSONAL HISTORY OF URINARY CALCULI 07/03/2017 BRIAN WOODS MD Ot Z88.8 ALLERGY STATUS TO OTH DRUG/MEDS/BIOL SUB 07/03/2017 BRIAN WOODS MD J Ot Z98.52 VASECTOMY STATUS 07/04/2017 LISANDRA ANTON, MAURO Swift Ot N20.2 CALCULUS OF KIDNEY WITH CALCULUS OF URET 07/04/2017 LISANDRA ANTON, MAURO Swift Ot N35.9 URETHRAL STRICTURE, UNSPECIFIED 07/04/2017 BRIAN WOODS MD Ot F12.10 CANNABIS ABUSE, UNCOMPLICATED 07/04/2017 BRIAN WOODS MD Ot F15.10 OTHER STIMULANT ABUSE, UNCOMPLICATED 07/04/2017 BRIAN WOODS MD Ot F17.210 NICOTINE DEPENDENCE, CIGARETTES, UNCOMPL 07/04/2017 BRIAN WOODS MD Ot N39.0 URINARY TRACT INFECTION, SITE NOT SPECIF 07/04/2017 BRIAN WOODS MD Ot R31.9 HEMATURIA, UNSPECIFIED 07/04/2017 BRIAN WOODS MD Ot Z87.19 PERSONAL HISTORY OF OTHER DISEASES OF 07/04/2017 BRIAN WOODS MD Ot Z87.442 PERSONAL HISTORY OF URINARY CALCULI 07/04/2017 BRIAN WOODS MD Ot Z88.8 ALLERGY STATUS TO OTH DRUG/MEDS/BIOL SUB 07/04/2017 BRIAN WOODS MD Ot Z98.52 VASECTOMY STATUS 07/08/2017 BRIAN WOODS MD Ot F12.10 CANNABIS ABUSE, UNCOMPLICATED 07/08/2017 BRIAN WOODS MD Ot F15.10 OTHER STIMULANT ABUSE, UNCOMPLICATED 07/08/2017 BRIAN WOODS MD Ot F17.210 NICOTINE DEPENDENCE, CIGARETTES, UNCOMPL 07/08/2017 BRIAN WOODS MD Ot N39.0 URINARY TRACT INFECTION, SITE NOT SPECIF 07/08/2017 BRIAN WOODS MD Ot R31.9 HEMATURIA, UNSPECIFIED 07/08/2017 BRIAN WOODS MD J Ot Z87.19 PERSONAL HISTORY OF OTHER DISEASES OF 07/08/2017 BRIAN WOODS MD Ot Z87.442 PERSONAL HISTORY OF URINARY CALCULI 07/08/2017 BRIAN WOODS MD Ot Z88.8 [facility]MEDS/BIOL SUB 07/08/2017 CHUCK ANTON, BRIAN Teresa Ot Z98.52 VASECTOMY STATUS 07/14/2017 VIVIANA GLOVER APRN Ot N20.1 CALCULUS OF URETER 08/30/2017 MAURO FRY MD Ot Z01.818 ENCOUNTER FOR OTHER PREPROCEDURAL EXAMIN 08/31/2017 SHAKA MUNGUIA UNIT COORDINATOR Ot 569.9 INTESTINAL DISORDER NOS 08/31/2017 SHAKA MUNGUIA UNIT COORDINATOR Ot 592.0 CALCULUS OF KIDNEY 08/31/2017 SHAKA MUNGUIA UNIT COORDINATOR Ot 789.00 ABDOMINAL PAIN, UNSPECIFIED SITE 08/31/2017 MAG ANTON, BRENTON Teresa Ot M54.2 CERVICALGIA 08/31/2017 MAG ANTON, BRENTON Teresa Ot R51 HEADACHE 08/31/[address] DO Ot M54.5 LOW BACK PAIN 08/31/2017 RONY CANTU STEWARD/STEWARDESS BANQUET Ot K50.90 CROHN'S DISEASE, UNSPECIFIED, WITHOUT CO 08/31/2017 OTHER, UNLISTED Ot R53.1 WEAKNESS 08/31/2017 OTHER, UNLISTED Ot R82.90 UNSPECIFIED ABNORMAL FINDINGS IN URINE 08/31/2017 VIVIANA GLOVER APRN Ot N20.1 CALCULUS OF URETER 08/31/2017 MAURO FRY MD Ot F12.90 CANNABIS USE, UNSPECIFIED, UNCOMPLICATED 08/31/2017 MAURO FRY MD Ot F17.210 NICOTINE DEPENDENCE, CIGARETTES, UNCOMPL 08/31/2017 MAURO FRY MD Ot J30.9 ALLERGIC RHINITIS, UNSPECIFIED 08/31/2017 MAURO FRY MD Ot N20.0 CALCULUS OF KIDNEY 08/31/2017 MAURO FRY MD Ot Z01.818 ENCOUNTER FOR OTHER PREPROCEDURAL EXAMIN 09/01/2017 MAURO FRY MD Ot F12.90 CANNABIS USE, UNSPECIFIED, UNCOMPLICATED 09/01/2017 MAURO FRY MD Ot F17.210 NICOTINE DEPENDENCE, CIGARETTES, UNCOMPL 09/01/2017 MAURO FRY MD Ot J30.9 ALLERGIC RHINITIS, UNSPECIFIED 09/01/2017 MAURO FRY MD Ot N20.0 CALCULUS OF KIDNEY 09/12/2017 SHAKA MUNGUIA UNIT COORDINATOR Ot 569.9 INTESTINAL DISORDER NOS 09/12/2017 SOHAM MUNGUIANDA UNIT COORDINATOR Ot 592.0 CALCULUS OF KIDNEY 09/12/2017 SHAKA MUNGUIA UNIT COORDINATOR Ot 789.00 ABDOMINAL PAIN, UNSPECIFIED SITE 09/12/2017 MAG ANTON, BRENTON Teresa Ot M54.2 CERVICALGIA 09/12/2017 MAG ANTON, BRENTON Teresa Ot R51 HEADACHE 09/12/2017 YENIFER DYLON JANSEN Ot M54.5 LOW BACK PAIN 09/12/2017 ALONDRARONY Eliana STEWARD/STEWARDESS BANQUET Ot K50.90 CROHN'S DISEASE, UNSPECIFIED, WITHOUT CO 09/12/2017 OTHER, UNLISTED Ot R53.1 WEAKNESS 09/12/2017 OTHER, UNLISTED Ot R82.90 UNSPECIFIED ABNORMAL FINDINGS IN URINE 09/12/2017 VIVIANA GLOVER STEWARD/STEWARDESS BANQUET Ot N20.1 CALCULUS OF URETER 09/13/2017 MAURO FRY MD Ot N20.0 CALCULUS OF KIDNEY 10/14/2017 Ot N20.0 CALCULUS OF KIDNEY 10/24/2017 MAURO FRY MD Ot K56.699 OTHER INTESTNL OBST UNSP TO PARTIAL V 10/24/2017 MAURO FRY MD Ot K63.89 OTHER SPECIFIED DISEASES OF INTESTINE 10/24/2017 MAURO FRY MD Ot N20.0 CALCULUS OF KIDNEY 10/24/2017 MAURO FRY MD Ot Z87.19 PERSONAL HISTORY OF OTHER DISEASES OF Procedures Code Description [place] [id number] [facility] DIAGNOSTIC EVALUATION 05/25/2012 31804 UA W/ CULTURE IF INDICATED 05/18/[address] ABDOMEN & PELVIS W/O CONTRAST 05/30/2014 [...] Complete urinalysis with reflex to culture - 11/11/15 20:40 Urine color determination YELLOW NRG Urine [...] NEGATIVE NEGATIVE Urine propoxyphene detection NEGATIVE NEGATIVE Complete blood count (CBC) with automated white blood cell (WBC) differential - 02/09/17 10:22 Blood leukocytes automated count (number/volume) 20.8 10*3/uL 4.3-11.0 Blood erythrocytes automated count (number/volume) 5.29 10*6/uL 4.35-5.85 Venous blood hemoglobin measurement (mass/volume) 16.3 g/dL 13.3-17.7 Blood hematocrit (volume fraction) 47 % 40-54 Automated erythrocyte mean corpuscular volume 88 [foz_us] 80-99 Automated erythrocyte mean corpuscular hemoglobin (mass per erythrocyte) 31 pg 25-34 Automated erythrocyte mean corpuscular hemoglobin concentration measurement ( mass/volume) 35 g/dL 32-36 Automated erythrocyte distribution width ratio 12.9 % 10.0-14.5 Automated blood platelet count (count/volume) 287 10*3/uL 130-400 Automated blood platelet mean volume measurement 9.8 [foz_us] 7.4-10.4 Automated blood neutrophils/100 leukocytes 85 % 42-75 Automated blood lymphocytes/100 leukocytes 7 % 12-44 Blood monocytes/100 leukocytes 8 % 0-12 Automated blood eosinophils/100 leukocytes 0 % 0-10 Automated blood basophils/100 leukocytes 0 % 0-10 Blood neutrophils automated count (number/volume) 17.7 10*3 1.8-7.8 Blood lymphocytes automated count (number/volume) 1.5 10*3 1.0-4.0 Blood monocytes automated count (number/volume) 1.6 10*3 0.0-1.0 Automated eosinophil count 0.0 10*3/uL 0.0-0.3 Automated blood basophil count (count/volume) 0.0 10*3/uL 0.0-0.1 Blood manual differential performed detection - 02/09/17 10:22 Blood monocytes/100 leukocytes 6 % NR Manual blood segmented neutrophils/100 leukocytes 78 % NRG Blood band neutrophils/100 leukocytes 8 % NRG Manual blood lymphocytes/100 leukocytes 8 % NRG Manual eosinophils/100 leukocytes in nose 0 % NRG Manual blood basophils/100 leukocytes 0 % NR Blood erythrocyte morphology finding identification [facility] Comprehensive metabolic panel - 02/09/17 10:22 Serum or plasma sodium measurement (moles/volume) 143 mmol/L 135-145 Serum or plasma potassium measurement (moles/volume) 4.3 mmol/L 3.6-5.0 Serum or plasma chloride measurement (moles/volume) 104 mmol/L 98-107 Carbon dioxide 27 mmol/L 21-32 Serum or plasma anion gap determination (moles/volume) 12 mmol/L 5-14 Serum or plasma urea nitrogen measurement (mass/volume) 20 mg/dL 7-18 Serum or plasma creatinine measurement (mass/volume) 1.08 mg/dL 0.60-1.30 Serum or plasma urea nitrogen/creatinine mass ratio 19 NRG Serum or plasma creatinine measurement with calculation of estimated glomerular filtration rate > NRG Serum or plasma glucose measurement (mass/volume) 120 mg/dL 70-105 Serum or plasma calcium measurement (mass/volume) 9.8 mg/dL 8.5-10.1 Serum or plasma total bilirubin measurement (mass/volume) 0.3 mg/dL 0.1-1.0 Serum or plasma alkaline phosphatase measurement (enzymatic activity/volume) 147 U/L 40-136 Serum or plasma aspartate aminotransferase measurement (enzymatic activity/ volume) 29 U/L 5-34 Serum or plasma alanine aminotransferase measurement (enzymatic activity/volume ) 45 U/L 0-55 Serum or plasma protein measurement (mass/volume) 7.9 g/dL 6.4-8.2 Serum or plasma albumin measurement (mass/volume) 4.4 g/dL 3.2-4.5 Serum or plasma C reactive protein measurement (mass/volume) - 02/09/17 10:22 Serum or plasma C reactive protein measurement (mass/volume) 0.70 mg /dL 0.00-0.50 Erythrocyte sedimentation rate by westergren method - 02/09/17 10:22 Erythrocyte sedimentation rate by westergren method 2 mm 0-15 Influenza virus A and B antigen detection - 02/09/17 10:29 FLU RESULT NEGATIVE FOR INFLUENZA A AND B ANTIGENS BY IA NR Blood lactic acid measurement (moles/volume) - 02/09/17 11:26 Blood lactic acid measurement (moles/volume) 1.08 mmol/L 0.50-2.00 Bacterial blood culture - 02/09/17 11:26 Bacterial blood culture NG NR Bacterial blood culture - 02/09/17 11:43 Bacterial blood culture NG [facility] Complete urinalysis with reflex to culture - 02/09/17 13:00 Urine color determination YELLOW NRG Urine clarity determination CLEAR NRG Urine pH measurement by test strip 7 5-9 Specific gravity of urine by test strip 1.005 1.016- 1.022 Urine protein assay by test strip, semi-quantitative 1+ NEGATIVE Urine glucose detection by automated test [...] NO NRG Urine drug screening test - 02/09/17 13:00 Urine phencyclidine detection by screening method NEGATIVE NEGATIVE Urine benzodiazepines detection by screening method NEGATIVE NEGATIVE Urine cocaine detection NEGATIVE NEGATIVE Urine amphetamines detection by screening method NEGATIVE NEGATIVE Urine methamphetamine detection by screening method POSITIVE NEGATIVE Urine cannabinoids detection by screening method POSITIVE NEGATIVE Urine opiates detection by screening method NEGATIVE NEGATIVE Urine barbiturates detection NEGATIVE NEGATIVE Screening urine tricyclic antidepressants detection NEGATIVE NEGATIVE Urine methadone detection by screening method NEGATIVE NEGATIVE Urine oxycodone detection NEGATIVE NEGATIVE Urine propoxyphene detection NEGATIVE NEGATIVE Complete urinalysis with reflex to culture - 03/16/17 17:15 Urine color determination YELLOW NRG Urine clarity determination CLEAR NRG Urine pH measurement by test strip 5 5-9 Specific gravity of urine by test [...] erythrocyte count by microscopy (number/high power field) [HPF] NRG Automated urine sediment leukocyte count by [...] automated white blood cell (WBC) differential - 03/16/17 17:30 Blood leukocytes automated count (number/volume) 9.8 10*3/uL 4.3-11.0 Blood erythrocytes automated count (number/volume) 4.64 10*6/uL 4.35-5.85 Venous blood hemoglobin measurement (mass/volume) 14.7 g/dL 13.3-17.7 Blood hematocrit (volume fraction) 41 % 40-54 Automated erythrocyte mean corpuscular volume 89 [foz_us] 80-99 Automated erythrocyte mean corpuscular hemoglobin (mass per erythrocyte) 32 pg 25-34 Automated erythrocyte mean corpuscular hemoglobin concentration measurement ( mass/volume) 36 g/dL 32-36 Automated erythrocyte distribution width ratio 12.8 % 10.0-14.5 Automated blood platelet count (count/volume) 267 10*3/uL 130-400 Automated blood platelet mean volume measurement 9.4 [foz_us] 7.4-10.4 Automated blood neutrophils/100 leukocytes 63 % 42-75 Automated blood lymphocytes/100 leukocytes 25 % 12-44 Blood monocytes/100 leukocytes 10 % 0-12 Automated blood eosinophils/100 leukocytes 2 % 0-10 Automated blood basophils/100 leukocytes 0 % 0-10 Blood neutrophils automated count (number/volume) 6.2 10*3 1.8-7.8 Blood lymphocytes automated count (number/volume) 2.5 10*3 1.0-4.0 Blood monocytes automated count (number/volume) 1.0 10*3 0.0-1.0 Automated eosinophil count 0.2 10*3/uL 0.0-0.3 Automated blood basophil count (count/volume) 0.0 10*3/uL 0.0-0.1 Comprehensive metabolic panel - 03/16/17 17:30 Serum or plasma sodium measurement (moles/volume) 140 mmol/L 135-145 Serum or plasma potassium measurement (moles/volume) 3.9 mmol/L 3.6-5.0 Serum or plasma chloride measurement (moles/volume) 105 mmol/L 98-107 Carbon dioxide 23 mmol/L 21-32 Serum or plasma anion gap determination (moles/volume) 12 mmol/L 5-14 Serum or plasma urea nitrogen measurement (mass/volume) 21 mg/dL 7-18 Serum or plasma creatinine measurement (mass/volume) 1.31 mg/dL 0.60-1.30 Serum or plasma urea nitrogen/creatinine mass ratio 16 NRG Serum or plasma creatinine measurement with calculation of estimated glomerular filtration rate > NRG Serum or plasma glucose measurement (mass/volume) 88 mg/dL 70-105 Serum or plasma calcium measurement (mass/volume) 9.4 mg/dL 8.5-10.1 Serum or plasma total bilirubin measurement (mass/volume) 0.4 mg/dL 0.1-1.0 Serum or plasma alkaline phosphatase measurement (enzymatic activity/volume) 158 U/L 40-136 Serum or plasma aspartate aminotransferase measurement (enzymatic activity/ volume) 31 U/L 5-34 Serum or plasma alanine aminotransferase measurement (enzymatic activity/volume ) 47 U/L 0-55 Serum or plasma protein measurement (mass/volume) 7.6 g/dL 6.4-8.2 Serum or plasma albumin measurement (mass/volume) 4.3 g/dL 3.2-4.5 Complete blood count (CBC) with automated white blood cell (WBC) differential - 03/27/17 20:21 Blood leukocytes automated count (number/volume) 9.6 10*3/uL 4.3-11.0 Blood erythrocytes automated count (number/volume) 4.66 10*6/uL 4.35-5.85 Venous blood hemoglobin measurement (mass/volume) 14.9 g/dL 13.3-17.7 Blood hematocrit (volume fraction) 42 % 40-54 Automated erythrocyte mean corpuscular volume 90 [foz_us] 80-99 Automated erythrocyte mean corpuscular hemoglobin (mass per erythrocyte) 32 pg 25-34 Automated erythrocyte mean corpuscular hemoglobin concentration measurement ( mass/volume) 36 g/dL 32-36 Automated erythrocyte distribution width ratio 13.0 % 10.0-14.5 Automated blood platelet count (count/volume) 291 10*3/uL 130-400 Automated blood platelet mean volume measurement 9.6 [foz_us] 7.4-10.4 Automated blood neutrophils/100 leukocytes 64 % 42-75 Automated blood lymphocytes/100 leukocytes 28 % 12-44 Blood monocytes/100 leukocytes 6 % 0-12 Automated blood eosinophils/100 leukocytes 2 % 0-10 Automated blood basophils/100 leukocytes 0 % 0-10 Blood neutrophils automated count (number/volume) 6.1 10*3 1.8-7.8 Blood lymphocytes automated count (number/volume) 2.7 10*3 1.0-4.0 Blood monocytes automated count (number/volume) 0.6 10*3 0.0-1.0 Automated eosinophil count 0.2 10*3/uL 0.0-0.3 Automated blood basophil count (count/volume) 0.0 10*3/uL 0.0-0.1 Urine drug screening test - 03/27/17 20:21 Urine phencyclidine detection by screening method NEGATIVE NEGATIVE Urine benzodiazepines detection by screening method NEGATIVE NEGATIVE Urine cocaine detection NEGATIVE NEGATIVE Urine amphetamines detection by screening method NEGATIVE NEGATIVE Urine methamphetamine detection by screening method NEGATIVE NEGATIVE Urine cannabinoids detection by screening method POSITIVE NEGATIVE Urine opiates detection by screening method POSITIVE NEGATIVE Urine barbiturates detection NEGATIVE NEGATIVE Screening urine tricyclic antidepressants detection NEGATIVE NEGATIVE Urine methadone detection by screening method NEGATIVE NEGATIVE Urine oxycodone detection NEGATIVE NEGATIVE Urine propoxyphene detection NEGATIVE NEGATIVE Comprehensive metabolic panel - 03/27/17 20:21 Serum or plasma sodium measurement (moles/volume) 139 mmol/L 135-145 Serum or plasma potassium measurement (moles/volume) 3.9 mmol/L 3.6-5.0 Serum or plasma chloride measurement (moles/volume) 104 mmol/L 98-107 Carbon dioxide 23 mmol/L 21-32 Serum or plasma anion gap determination (moles/volume) 12 mmol/L 5-14 Serum or plasma urea nitrogen measurement (mass/volume) 15 mg/dL 7-18 Serum or plasma creatinine measurement (mass/volume) 1.10 mg/dL 0.60-1.30 Serum or plasma urea nitrogen/creatinine mass ratio 14 NRG Serum or plasma creatinine measurement with calculation of estimated glomerular filtration rate > NRG Serum or plasma glucose measurement (mass/volume) 116 mg/dL 70-105 Serum or plasma calcium measurement (mass/volume) 9.2 mg/dL 8.5-10.1 Serum or plasma total bilirubin measurement (mass/volume) 0.4 mg/dL 0.1-1.0 Serum or plasma alkaline phosphatase measurement (enzymatic activity/volume) 149 U/L 40-136 Serum or plasma aspartate aminotransferase measurement (enzymatic activity/ volume) 39 U/L 5-34 Serum or plasma alanine aminotransferase measurement (enzymatic activity/volume ) 68 U/L 0-55 Serum or plasma protein measurement (mass/volume) 7.1 g/dL 6.4-8.2 Serum or plasma albumin measurement (mass/volume) 3.9 g/dL 3.2-4.5 Magnesium - 03/27/17 20:21 Magnesium 2.1 mg/dL 1.8-2.4 Serum or plasma amylase measurement (enzymatic activity/volume) - 03/27/17 20: 21 Serum or plasma amylase measurement (enzymatic activity/volume) 68 U /L 25-125 Lipase - 03/27/17 20:21 Lipase 45 U/L 8-78 Influenza virus A and B antigen detection - 03/27/17 20:21 FLU RESULT NEGATIVE FOR INFLUENZA A AND B ANTIGENS BY IA NRG Serum or plasma ethanol measurement (mass/volume) - 03/27/17 20:21 Serum or plasma ethanol measurement (mass/volume) < mg/dL <10 Complete urinalysis with reflex to culture - 03/27/17 20:21 Urine color determination YELLOW NRG Urine clarity determination CLEAR NRG Urine pH measurement by test strip 6 5-9 Specific gravity of urine by test strip 1.025 1.016- 1.022 Urine protein assay by test [...] NORMAL Urine leukocyte esterase detection by dipstick 1+ NEGATIVE Automated urine sediment erythrocyte count by microscopy (number/high power field) [HPF] NRG Automated urine sediment leukocyte count by microscopy (number/high power field ) [HPF] NRG Bacteria detection in urine sediment by light microscopy NEGATIVE NRG Crystals detection in urine sediment by light microscopy NONE NRG Casts detection in urine sediment by light microscopy NONE NRG Mucus detection in urine sediment by light microscopy SMALL NRG Complete urinalysis with reflex to culture NO NRG Complete urinalysis with reflex to culture - 06/24/17 11:28 Urine color determination YELLOW NRG Urine clarity determination SLIGHTLY CLOUDY NRG Urine pH measurement by test strip 6.5 5-9 Specific gravity of urine by test strip 1.010 1.016- 1.022 Urine protein assay by test strip, semi-quantitative NEGATIVE NEGATIVE Urine glucose detection by automated test strip NEGATIVE NEGATIVE Erythrocytes detection in urine sediment by light microscopy 3+ NEGATIVE Urine ketones detection by automated test strip NEGATIVE NEGATIVE Urine nitrite detection by test strip NEGATIVE NEGATIVE Urine total bilirubin detection by test strip NEGATIVE NEGATIVE Urine urobilinogen measurement by automated test strip (mass/volume) NORMAL NORMAL Urine leukocyte esterase detection by dipstick NEGATIVE NEGATIVE Automated urine sediment erythrocyte count by microscopy (number/high power field) [HPF] NRG Automated urine sediment leukocyte count by microscopy (number/high power field ) NONE NRG Bacteria detection in urine sediment by light microscopy NEGATIVE NRG Crystals detection in urine sediment by light microscopy NONE NRG Casts detection in urine sediment by light microscopy NONE NRG Mucus detection in urine sediment by light microscopy NEGATIVE NRG Complete urinalysis with reflex to culture NO NRG Urine drug screening test - 06/24/17 11:28 Urine phencyclidine detection by screening method NEGATIVE [...] NEGATIVE NEGATIVE Urine propoxyphene detection NEGATIVE NEGATIVE Chlamydia DNA amp probe, urine - 06/24/17 11:28 Chlamydia DNA amp probe, urine Not Detected Not Detected Urine Neisseria gonorrhoeae DNA assay - 06/24/17 11:28 Gonorrhea amp DNA-urine Not Detected Not Detected Complete blood count (CBC) with automated white blood cell (WBC) differential - 06/24/17 11:33 Blood leukocytes automated count (number/volume) 9.1 10*3/uL 4.3-11.0 Blood erythrocytes automated count (number/volume) 4.65 10*6/uL 4.35-5.85 Venous blood hemoglobin measurement (mass/volume) 14.6 g/dL 13.3-17.7 Blood hematocrit (volume fraction) 41 % 40-54 Automated erythrocyte mean corpuscular volume 89 [foz_us] 80-99 Automated erythrocyte mean corpuscular hemoglobin (mass per erythrocyte) 31 pg 25-34 Automated erythrocyte mean corpuscular hemoglobin concentration measurement ( mass/volume) 35 g/dL 32-36 Automated erythrocyte distribution width ratio 12.3 % 10.0-14.5 Automated blood platelet count (count/volume) 255 10*3/uL 130-400 Automated blood platelet mean volume measurement 9.4 [foz_us] 7.4-10.4 Automated blood neutrophils/100 leukocytes 72 % 42-75 Automated blood lymphocytes/100 leukocytes 17 % 12-44 Blood monocytes/100 leukocytes 8 % 0-12 Automated blood eosinophils/100 leukocytes 2 % 0-10 Automated blood basophils/100 leukocytes 1 % 0-10 Blood neutrophils automated count (number/volume) 6.6 10*3 1.8-7.8 Blood lymphocytes automated count (number/volume) 1.6 10*3 1.0-4.0 Blood monocytes automated count (number/volume) 0.7 10*3 0.0-1.0 Automated eosinophil count 0.2 10*3/uL 0.0-0.3 Automated blood basophil count (count/volume) 0.1 10*3/uL 0.0-0.1 Comprehensive metabolic panel - 06/24/17 11:33 Serum or plasma sodium measurement (moles/volume) 141 mmol/L 135-145 Serum or plasma potassium measurement (moles/volume) 4.0 mmol/L 3.6-5.0 Serum or plasma chloride measurement (moles/volume) 108 mmol/L 98-107 Carbon dioxide 25 mmol/L 21-32 Serum or plasma anion gap determination (moles/volume) 8 mmol/L 5-14 Serum or plasma urea nitrogen measurement (mass/volume) 13 mg/dL 7-18 Serum or plasma creatinine measurement (mass/volume) 0.95 mg/dL 0.60-1.30 Serum or plasma urea nitrogen/creatinine mass ratio 14 NRG Serum or plasma creatinine measurement with calculation of estimated glomerular filtration rate > NRG Serum or plasma glucose measurement (mass/volume) 98 mg/dL 70-105 Serum or plasma calcium measurement (mass/volume) 9.7 mg/dL 8.5-10.1 Serum or plasma total bilirubin measurement (mass/volume) 0.3 mg/dL 0.1-1.0 Serum or plasma alkaline phosphatase measurement (enzymatic activity/volume) 140 U/L 40-136 Serum or plasma aspartate aminotransferase measurement (enzymatic activity/ volume) 23 U/L 5-34 Serum or plasma alanine aminotransferase measurement (enzymatic activity/volume ) 30 U/L 0-55 Serum or plasma protein measurement (mass/volume) 7.0 g/dL 6.4-8.2 Serum or plasma albumin measurement (mass/volume) 4.2 g/dL 3.2-4.5 Methicillin resistant Staphylococcus aureus (MRSA) screening culture - 07:15 Methicillin resistant Staphylococcus aureus (MRSA) screening culture NEG NRG Complete urinalysis with reflex to culture - 07/02/17 22:46 Urine color determination BROWN NRG Urine clarity determination VERY CLOUDY NRG Urine pH measurement by test strip 5 5-9 Specific gravity of urine by test strip 1.025 1.016- 1.022 Urine protein assay by test strip, semi-quantitative 3+ NEGATIVE Urine glucose detection by automated test strip NEGATIVE NEGATIVE Erythrocytes detection in urine sediment by light microscopy 5+ NEGATIVE Urine ketones detection by automated test strip NEGATIVE NEGATIVE Urine nitrite detection by test strip POSITIVE NEGATIVE Urine total bilirubin detection by test strip 3+ NEGATIVE Urine urobilinogen measurement by automated test strip (mass/volume) 8 mg/dL NORMAL Urine leukocyte esterase detection by dipstick NEGATIVE NEGATIVE Automated urine sediment erythrocyte count by microscopy (number/high power field) TNTC NRG Automated urine sediment leukocyte count by microscopy (number/high power field ) [HPF] NRG Bacteria detection in urine sediment by light microscopy MODERATE NRG Crystals detection in urine sediment by light microscopy NONE NRG Casts detection in urine sediment by light microscopy NONE NRG Mucus detection in urine sediment by light microscopy NEGATIVE NRG Complete urinalysis with reflex to culture YES NRG Bacterial urine culture - 07/02/17 22:46 Bacterial urine culture NG NRG Urine drug screening test - 07/02/17 22:50 Urine phencyclidine detection by screening method NEGATIVE NEGATIVE Urine benzodiazepines detection by screening method NEGATIVE NEGATIVE Urine cocaine detection NEGATIVE NEGATIVE Urine amphetamines detection by screening method NEGATIVE NEGATIVE Urine methamphetamine detection by screening method NEGATIVE NEGATIVE Urine cannabinoids detection by screening method POSITIVE NEGATIVE Urine opiates detection by screening method POSITIVE NEGATIVE Urine barbiturates detection NEGATIVE NEGATIVE Screening urine tricyclic antidepressants detection NEGATIVE NEGATIVE Urine methadone detection by screening method NEGATIVE NEGATIVE Urine oxycodone detection NEGATIVE NEGATIVE Urine propoxyphene detection NEGATIVE NEGATIVE Urine drug screening test - 08/31/17 07:11 Urine phencyclidine detection by screening method NEGATIVE NEGATIVE Urine benzodiazepines detection by screening method NEGATIVE NEGATIVE Urine cocaine detection NEGATIVE NEGATIVE Urine amphetamines detection by screening method NEGATIVE NEGATIVE Urine methamphetamine detection by screening method NEGATIVE NEGATIVE Urine cannabinoids detection by screening method POSITIVE NEGATIVE Urine opiates detection by screening method POSITIVE NEGATIVE Urine barbiturates detection NEGATIVE NEGATIVE Screening urine tricyclic antidepressants detection NEGATIVE NEGATIVE Urine methadone detection by screening method NEGATIVE NEGATIVE Urine oxycodone detection NEGATIVE NEGATIVE Urine propoxyphene detection NEGATIVE NEGATIVE Methicillin resistant Staphylococcus aureus (MRSA) screening culture - 07:30 Methicillin resistant Staphylococcus aureus (MRSA) screening culture NEG NRG Encounters ACCT No. Visit Date/Time Discharge Status Pt. Type Provider Facility Loc./Unit Complaint [id number] 05/18/2014 10:44:00 05/18/2014 23:59:59 CLS Outpatient SHAKA MUNGUIA APRN [id number] 08/22/2013 08:24:00 08/22/2013 23:59:59 CLS Outpatient ONEL JANSEN HALEY [id number] 03/17/2013 13:37:00 03/17/2013 23:59:59 CLS Outpatient ROBEL BOWLING APRN [id number] 05/23/2012 08:25:00 05/23/2012 23:59:59 CLS Outpatient [id number] 10/21/2017 14:19:00 10/21/2017 23:59:59 CLS Outpatient [facility]URO [facility] RAD RIGHT FLANK PAIN [id number] 09/12/2017 13:19:00 09/12/2017 23:59:59 CLS Outpatient MAURO FRY [facility] RAD TI RENAL STONES [id number] 08/31/2017 06:57:00 08/31/2017 12:40:00 [facility] BIL[facility] RENAL STONES [id number] 08/30/2017 05:36:00 08/30/2017 09:46:00 DIS Outpatient MAURO FRY [facility] PREOP RT URETERAL STONE, BILAT RENAL STONES [id number] 07/02/2017 22:32:00 07/03/2017 00:16:00 DIS Emergency BRIAN WOODS [facility] ER URINATING BLOOD [id number] 06/28/2017 06:47:00 06/28/2017 11:25:00 DIS [facility] [id number] 06/27/2017 09:46:00 06/27/2017 23:59:59 CLS Outpatient VIVIANA GLOVER [facility] RAD RIGHT STONE [id number] 06/24/2017 10:56:00 06/24/2017 13:45:00 DIS Emergency VIVIANA GLOVER [facility]EWARD/[facility]ARDESS [facility]ANQU[facility] ER [place] WHEN URINATES [id number] 03/27/2017 18:46:00 03/27/2017 21:36:00 DIS Emergency ANGELA NGUYỄN DO [facility] ER N/V BODYACHES, HEADACHE [id number] 03/16/2017 17:02:00 03/16/2017 23:59:59 CLS Outpatient OTHER, UNLISTED [facility] LAB WEAKNESS,ABMORMAL FINDINGS IN URINE [id number] 02/09/2017 09:41:00 02/09/2017 13:23:00 DIS Emergency VIVIANA GLOVER [facility] ER FEVER,DIARRHEA-HX OF CROHN 'S DISEASE [id number] 11/14/2016 00:24:00 11/14/2016 23:59:59 CLS Preadmit ALONDRAMAXRONY Eliana STEWARD/[facility] LAB K50.90 [id number] 09/02/2016 08:52:00 11/13/2016 00:01:00 DIS Outpatient ALONDRA, RONY L [facility] LAB K50.90 [id number] 09/02/2016 08:58:00 09/02/2016 11:36:00 DIS Emergency ANGELA NGUYỄN DO [facility] ER BLOOD IN STOOL [id number] 01/22/2016 16:55:00 01/22/2016 23:59:[address] DO [facility] RAD LOW BACK PAIN [id number] 11/11/2015 18:39:00 11/11/2015 21:30:00 DIS Emergency VIVIANA GLOVER APRN [facility] ER ABD PAIN/CRAMPING [id number] 08/22/2015 14:17:00 08/22/2015 17:03:00 DIS Emergency BESSIE ANTON, SUNNI Mike [facility] ER ABD PAIN [id number] 03/12/2015 13:04:00 03/12/2015 23:59:59 CLS Outpatient BRENTON HATHAWAY MD [facility] REHAB NECK AND UPPER BACK PAIN [id number] 02/21/2015 10:30:00 02/21/2015 23:59:59 CLS Outpatient BRENTON HATHAWAY MD [facility] RAD HEADACHE, NECK PAIN [id number] 05/30/2014 09:26:00 05/30/2014 23:59:59 CLS Outpatient SHAKA MUNGUIA [facility] RAD STONE SEARCH [id number] 02/19/2014 21:02:00 02/19/2014 23:55:00 DIS Emergency STONE OLVERA MD [facility] ER PAIN FROM CROHNS [id number] 10/04/2013 15:07:00 10/04/2013 23:59:59 CLS Outpatient [id number] 09/27/2017 15:46:00 Document Registration [id number] 02/19/2014 21:07:00 Document Registration [id number] 02/19/2014 21:07:00 Document Registration [id number] 10/19/2013 23:48:00 Document Registration [id number] 04/25/2013 19:53:00 Document Registration [id number] 04/23/2013 10:22:00 Document Registration [id number] 03/02/2012 08:33:00 Document Registration [id number] 11/23/2011 08:42:00 Document Registration [id number] 11/15/2011 11:10:00 Document Registration [id number] 11/12/2011 08:45:00 Document Registration [id number] 11/03/2011 09:14:00 Document Registration [id number] 10/22/2011 12:09:00 Document Registration [id number] 08/31/2011 20:55:00 Document Registration [id number] 07/21/2011 12:51:00 Document Registration [id number] 10/08/2010 20:15:00 Document Registration [id number] 08/05/2009 00:00:00 Document Registration [id number] 05/06/2009 16:44:00 Document Registration [id number] 02/10/2009 12:53:00 Document Registration [id number] 01/29/2009 05:43:00 Document Registration [id number] 01/27/2009 10:52:00 Document Registration [id number] 01/15/2009 16:26:00 Document Registration [id number] 01/13/2009 14:53:00 Document Registration [id number] 05/31/2014 04:32:03 ACT Document Registration [id number] 09/20/2017 16:20:00 09/20/2017 23:59:59 CLS Outpatient HALEY SYKES DO [facility] [id number] 10/19/2013 23:48:00 10/20/2013 01:08:00 DIS Emergency [id number] 04/25/2013 19:53:00 04/25/2013 22:12:00 DIS Emergency [id number] 04/23/2013 10:22:00 04/23/2013 13:48:00 DIS Emergency [id number] 08/22/2012 12:18:00 08/22/2012 23:59:59 CLS Outpatient [id number] 06/27/2012 10:53:00 06/27/2012 23:59:59 CLS Outpatient
[2018-02-23 14:50] LABS: BASOPHILS % (AUTO) 0 % (0-10); EOSINOPHILS % (AUTO) 0 % (0-10); HEMATOCRIT 43 % (40-54); HEMOGLOBIN 14.8 G/DL (13.3-17.7); LYMPHOCYTES % (AUTO) 7 % (12-44); MEAN CORPUSCULAR HEMOGLOBIN 32 PG (25-34); MEAN CORPUSCULAR HGB CONC 35 G/DL (32-36); MEAN CORPUSCULAR VOLUME 92 FL (80-99); MEAN PLATELET VOLUME 9.4 FL (7.4-10.4); MONOCYTES # (AUTO) 0.9 X 10^3 (0.0-1.0); MONOCYTES % (AUTO) 7 % (0-12); NEUTROPHILS # (AUTO) 12.4 X 10^3 (1.8-7.8); NEUTROPHILS % (AUTO) 86 % (42-75); PLATELET COUNT 285 10^3/uL (130-400); RED BLOOD COUNT 4.63 10^6/uL (4.35-5.85); RED CELL DISTRIBUTION WIDTH 13.1 % (10.0-14.5); WHITE BLOOD COUNT 14.4 10^3/uL (4.3-11.0)
[2018-02-23 15:06] LABS: ALANINE AMINOTRANSFERASE 28 U/L (0-55); ALBUMIN 4.4 GM/DL (3.2-4.5); ALKALINE PHOSPHATASE 156 U/L (40-136); BILIRUBIN,TOTAL 0.3 MG/DL (0.1-1.0); BUN/CREATININE RATIO 18; CALCIUM 9.4 MG/DL (8.5-10.1); CARBON DIOXIDE 25 MMOL/L (21-32); CHLORIDE 105 MMOL/L (98-107); GFR ESTIMATED > 60; GLUCOSE 133 MG/DL (70-105); SODIUM 140 MMOL/L (135-145); TOTAL PROTEIN 7.2 GM/DL (6.4-8.2)
[2018-02-23 15:10] LABS: BAND NEUTROPHILS 5 %; BASOPHILS % (MANUAL) 0 %; EOSINOPHILS % (MANUAL) 0 %; LYMPHOCYTES % (MANUAL) 6 %; MONOCYTES % (MANUAL) 6 %; NEUTROPHILS % (MANUAL) 83 %; RBC MORPH NORMAL
[2018-02-23 15:31] LABS: ERYTHROCYTE SEDIMENTATION RATE 1 MM/HR (0-15)
[2018-02-23 16:10] LABS: BILIRUBIN,URINE NEGATIVE (NEGATIVE); CLARITY,URINE CLEAR; COLOR,URINE YELLOW; GLUCOSE, URINE (UA) NEGATIVE (NEGATIVE); KETONES,URINE NEGATIVE (NEGATIVE); LEUKOCYTE ESTERASE ,URINE NEGATIVE (NEGATIVE); NITRITE,URINE NEGATIVE (NEGATIVE); PH,URINE 6 (5-9); PROTEIN,URINE NEGATIVE (NEGATIVE); SQUAMOUS EPITHELIAL CELL,UR 0-2 /HPF; UROBILINOGEN,URINE NORMAL (NORMAL)
[2018-02-23] MEDS ORDERED: CIPR-225 PO (16:23)
[2018-02-23] MEDS ORDERED: METR500T PO (16:23)
--- NOTE | 2018-02-23 16:23 | ED Abdominal Pain ---
General Chief Complaint: Abdominal/GI Problems Stated Complaint: ABD PAIN;BLOOD IN STOOL Nursing Triage Note: STATES SINCE SAT HE HAS PASSED BLOOD WHEN HAVING A STOOL. ALSO COMPLAINS OF LEFT LOWER ABD PAIN Sepsis Screen: No Definite Risk Source of Information: Patient Exam Limitations: No Limitations History of Present Illness Date Seen by Provider: Feb 23, 2018 Time Seen by Provider: 14:40 Initial Comments This 37-year-old man with Crohn's disease presents to the emergency room with complaints of left lower quadrant abdominal pain and blood in his stool. He states the blood is mixed in with the stool and also settles out at the bottom of the water after a bowel movement. It is bright red in color. Patient is presently being treated for Crohn's disease with Humira and steroids. He has had abdominal pain and blood in his stools despite the recent addition of steroid taper. He denies any fever. He is presently following with a supervisor silvering department by the name of Dr. Martin in [place]. His primary care provider is Dr. Trudy Chen. Allergies and Home Medications Allergies Coded Allergies: propoxyphene napsylate (Unverified Allergy, Severe, SEIZURES, 11/14/13) Home Medications Adalimumab 40 Mg/0.8 Ml Pen.[email or web address].kit, 40 MG IM every 2 weeks, (Reported) Cetirizine HCl 10 Mg Tablet, 10 MG PO DAILY, (Reported) Ciprofloxacin HCl 500 Mg Tablet, 500 MG PO BID Prescribed by: SUNNI GONZALEZ on 02/23/18 1623 Fluticasone Propionate 9.9 Ml [place].susp, 1 SPRAY NS DAILY, (Reported) 1 SPRAY EACH NARE DAILY Hydrocodone Bit/Acetaminophen 1 Tab Tab, 1-2 TAB PO Q4H Prescribed by: FLORESITA HOOPER on 08/31/17 1204 Hydrocodone/Acetaminophen 1 Each Tablet, 1 EACH PO Q6H PRN for PAIN-MILD TO MODERATE, (Reported) Metronidazole 500 Mg Tablet, 500 MG PO TID Prescribed by: SUNNI GONZALEZ on 02/23/18 1623 Nicotine 1 Each Patch.td24, 21 MG TD DAILY, (Reported) Nitrofurantoin Monohyd/M-Cryst 100 Mg Capsule, 1 TAB PO BID Prescribed by: FLORESITA HOOPER on 08/31/17 1204 Tamsulosin HCl 0.4 Mg Cap, 0.4 MG PO DAILY Prescribed by: FLORESITA HOOPER on 08/31/17 8044 Patient Home Medication List Home Medication List Reviewed: Yes Review of Systems Review of Systems Constitutional: no symptoms reported EENTM: No Symptoms Reported Respiratory: No Symptoms Reported Cardiovascular: No Symptoms Reported Gastrointestinal: See HPI Genitourinary: No Symptoms Reported Musculoskeletal: no symptoms reported Skin: no symptoms reported Psychiatric/Neurological: No Symptoms Reported Endocrine: No Symptoms Reported Hematologic/Lymphatic: See HPI Past [id number] Hx Patient Social History Alcohol Use: Occasionally Uses Number of Drinks Today: AA Alcohol Beverage of Choice: Beer Recreational Drug Use: Yes 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, THC Type Used: Cigarettes Former Smoker, Quit: Aug 27, 2017 Recent Foreign Travel: No Contact w/Someone Who Travel: No Recent Infectious Disease Expo: No Recent Hopitalizations: No Seasonal Allergies Seasonal Allergies: No Past Medical History Surgeries: Yes (colonoscopy, ureteroscopies, stone basket retrieval) Vasectomy Respiratory: No Cardiac: No Neurological: No Reproductive Disorders: No Genitourinary: Yes Kidney Stones Gastrointestinal: Yes Crohns Disease Musculoskeletal: Yes (CHRONIC NECK AND BACK PAIN ) Chronic Back Pain Endocrine: No HEENT: No Cancer: No Psychosocial: No Integumentary: No Blood Disorders: No Physical Exam Vital Signs Vital Signs - First Documented 02/23/18 14:10 Temp 98.0 Pulse 81 Resp 16 B/P (MAP) 117/73 (88) Pulse Ox 95 O2 Delivery Room Air Capillary Refill : Less Than 3 Seconds Height/Weight/BMI Height: 5'6.00" Weight: 198lbs. 0.0oz. 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, no motor/sensory deficits, alert, normal mood/affect, oriented x 3 Skin: normal color, warm/dry Progress/Results/Core Measures Results/Orders Lab Results Laboratory Tests Test 1/10/19 14:42 02/23/18 15:01 Range/Units White Blood Count 14.4 H 4.3-11.0 10^3/uL Red Blood Count 4.63 4.35-5.85 10^6/uL Hemoglobin 14.8 13.3-17.7 G/DL Hematocrit 43 40-54 % Mean Corpuscular Volume 92 80-99 FL Mean Corpuscular Hemoglobin 32 25-34 PG Mean Corpuscular Hemoglobin Concent 35 32-36 G/DL Red Cell Distribution Width 13.1 10.0-14.5 % Platelet Count 285 130-400 10^3/uL Mean Platelet Volume 9.4 7.4-10.4 FL Neutrophils (%) (Auto) 86 H 42-75 % Lymphocytes (%) (Auto) 7 L 12-44 % Monocytes (%) (Auto) 7 0-12 % Eosinophils (%) (Auto) 0 0-10 % Basophils (%) (Auto) 0 0-10 % Neutrophils # (Auto) 12.4 H 1.8-7.8 X 10^3 Lymphocytes # (Auto) 1.0 1.0-4.0 X 10^3 Monocytes # (Auto) 0.9 0.0-1.0 X 10^3 Eosinophils # (Auto) 0.0 0.0-0.3 10^3/uL Basophils # (Auto) 0.0 0.0-0.1 10^3/uL Neutrophils % (Manual) 83 % Lymphocytes % (Manual) 6 % Monocytes % (Manual) 6 % Eosinophils % (Manual) 0 % Basophils % (Manual) 0 % Band Neutrophils 5 % Blood Morphology Comment NORMAL Erythrocyte Sedimentation Rate 1 0-15 MM/HR Sodium Level 140 135-145 MMOL/L Potassium Level 4.0 3.6-5.0 MMOL/L Chloride Level 105 98-107 MMOL/L Carbon Dioxide Level 25 21-32 MMOL/L Anion Gap 10 5-14 MMOL/L Blood Urea Nitrogen 21 H 7-18 MG/DL Creatinine 1.20 0.60-1.30 MG/DL Estimat Glomerular Filtration Rate > 60 BUN/Creatinine Ratio 18 Glucose Level 133 H 70-105 MG/DL Calcium Level 9.4 8.5-10.1 MG/DL Corrected Calcium 9.1 8.5-10.1 MG/DL Total Bilirubin 0.3 0.1-1.0 MG/DL Aspartate Amino Transf (AST/SGOT) 21 5-34 U/L Alanine Aminotransferase (ALT/SGPT) 28 0-55 U/L Alkaline Phosphatase 156 H 40-136 U/L C-Reactive Protein High Sensitivity 0.07 0.00-0.50 MG/DL Total Protein 7.2 6.4-8.2 GM/DL Albumin 4.4 3.2-4.5 GM/DL Urine Color YELLOW Urine Clarity CLEAR Urine pH 6 5-9 Urine Specific [place] 1.020 1.016-1.022 Urine Protein NEGATIVE NEGATIVE Urine Glucose (UA) NEGATIVE NEGATIVE Urine Ketones NEGATIVE NEGATIVE Urine Nitrite NEGATIVE NEGATIVE Urine Bilirubin NEGATIVE NEGATIVE Urine Urobilinogen NORMAL NORMAL MG/DL Urine Leukocyte Esterase NEGATIVE NEGATIVE Urine RBC (Auto) NEGATIVE NEGATIVE Urine RBC NONE /HPF Urine WBC NONE /HPF Urine Squamous Epithelial Cells 0-2 /HPF Urine Crystals NONE /LPF Urine Bacteria NONE /HPF Urine Casts NONE /LPF Urine Mucus NEGATIVE /LPF Urine Culture Indicated NO My Orders Orders - SUNNI LA MD Saline Lock/Iv-Start (02/23/18 14:44) Cbc With Automated Diff (02/23/18 14:44) Comprehensive Metabolic Panel (02/23/18 14:44) Hs C Reactive Protein (02/23/18 14:44) Erythrocyte Sedimentation Rate (02/23/18 14:44) Manual Differential (02/23/18 14:42) Fecal Occult Bedside (02/23/18 15:04) Ua Culture If Indicated (02/23/18 15:43) Vital Signs/I&O 02/23/18 02/23/18 14:10 16:37 Temp 98.0 Pulse 81 69 Resp 16 18 B/P (MAP) 117/73 (88) 132/94 (107) Pulse Ox 95 98 O2 Delivery Room Air Simple Mask Blood Pressure Mean: 88 Progress Progress Note : Progress Note Labs were relatively unremarkable except for mild leukocytosis which is probably due to steroid use. Patient is already on prednisone. We will add Cipro and Flagyl and have him follow-up with his supervisor silvering department. Departure Impression Primary Impression: Hematochezia Additional Impressions: Left lower quadrant pain Crohns disease Qualified Codes: K50.911 - Crohn's disease, unspecified, with rectal bleeding Disposition: HOME, SELF-CARE Condition: Stable Departure-Patient Inst. Referrals: TRUDY CHEN MD (PCP/Family) Primary Care Physician Patient Instructions: Crohn's Disease (DC) Add. Discharge Instructions: Continue taking your medications as previously prescribed. Start Cipro and Flagyl as prescribed. Do not drink alcohol while on Flagyl. Please contact your supervisor silvering department as soon as possible for further direction. Return to care if you have worsening symptoms. All discharge instructions reviewed with patient and/or family. Voiced understanding. Scripts Metronidazole (Flagyl) 500 Mg Tablet 500 MG PO TID, #20 TAB Prov: SUNNI LA MD 02/23/18 Ciprofloxacin HCl (Cipro) 500 Mg Tablet 500 MG PO BID, #14 TAB Prov: SUNNI LA MD 02/23/18 SUNNI LA MD Feb 23, 2018 16:23
[2018-02-23 16:37] VITALS: BP 132/94
== END 2018-02-23 16:37 | disposition home or self-care (01) ==
LOC: EDUNIT# 14:02 → ER 14:03
DX: K50.90 Crohn's disease, unspecified, without complications (principal); K92.1 Melena; Z88.8 Allergy status to other drugs, medicaments and biological substances; Z79.51 Long term (current) use of inhaled steroids; Z87.891 Personal history of nicotine dependence; Z98.52 Vasectomy status; Z87.442 Personal history of urinary calculi; Z87.19 Personal history of other diseases of the digestive system
CPT/HCPCS: 36415; 80053; 81000; 85007; 85027; 85652; 86141